=== PATIENT | male | born 1955 | race African-American/Black ===

== ENCOUNTER 2017-10-04 13:36 | Inpatient (IN) | payer OTHER ==
[2017-10-04 15:12] VITALS: BMI 27.0
[2017-10-04] MEDS ORDERED: hydrOXYzine PAMOATE 50 MG CAPSULE (FP) PO PRN (15:27)
[2017-10-04] MEDS ORDERED: MAGNESIUM HYDROX 2400MG/30ML ORAL SUSPENSION 30 ML CUP PO PRN (15:27)
[2017-10-04] MEDS ORDERED: MAGNESIUM CITRATE 300 ML BOTTLE PO PRN (15:27)
[2017-10-04] MEDS ORDERED: NICOTINE POLACRILEX 2 MG GUM BUC PRN (15:27)
[2017-10-04] MEDS ORDERED: MENTHOL/PHENOL 1 EACH UD MM PRN (15:27)
[2017-10-04] MEDS ORDERED: MAG HYDROX/AL HYDROX/SIMETH 30 ML UNIT-DOSE CUP PO PRN (15:27)
[2017-10-04] MEDS ORDERED: P-EPHED 60MG/TRIPROLIDI 2.5MG TABLET PO PRN (15:27)
[2017-10-04] MEDS ORDERED: LOPERAMIDE HCL 2 MG CAPSULE PO PRN (15:27)
[2017-10-04] MEDS ORDERED: guaiFENesin/D-METHORPHAN HB 10 ML UNIT-DOSE CUPS PO PRN (15:27)
--- NOTE | 2017-10-04 15:33 | HP ---
[facility] Re[facility] Assess/Revision - Admission History Admitted to Rehab from: [facility] Date of Admission to Rehab: 10/04/2017 - Vital signs Vital Signs: Vital Signs Period Temp Pulse Resp BP Sys/Ruiz Pulse Ox Last 24 Hr 98 F 98 19 101/73 - Findings Detox History & Physical reviewed: Yes Concur with findings: Yes Inpatient Rehab Admission - Initial Determination Are CD services needed?: Yes Free of communicable disease: Yes Not in need of hospitalization: Yes - Rehab Admission Criteria Poor recovery environment: Yes Patient is meeting Inpatient Rehab admission criteria:: Yes
[2017-10-04] MEDS: THIAMINE HCL 100 MG TABLET (FP) PO SCH (21:04)
[2017-10-04] MEDS: CYCLOBENZAPRINE HCL 10 MG TABLET (FP) PO SCH (21:04)
[2017-10-05] MEDS: CYCLOBENZAPRINE HCL 10 MG TABLET (FP) PO SCH ×3 (06:06→21:30)
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
[2017-10-05] MEDS: PRENATAL VITAMINS W/ FOLIC ACID TABLET (FP) PO SCH (10:00)
[2017-10-05] MEDS: NICOTINE 14 MG/24 HOURS TOPICAL PATCH TD SCH (10:00)
[2017-10-05] MEDS: THIAMINE HCL 100 MG TABLET (FP) PO SCH (21:30)
[2017-10-06] MEDS: CYCLOBENZAPRINE HCL 10 MG TABLET (FP) PO SCH ×3 (06:00→21:27)
[2017-10-06] MEDS: PRENATAL VITAMINS W/ FOLIC ACID TABLET (FP) PO SCH (09:57)
[2017-10-06] MEDS: NICOTINE 14 MG/24 HOURS TOPICAL PATCH TD SCH (09:57)
[2017-10-06] MEDS: THIAMINE HCL 100 MG TABLET (FP) PO SCH (21:26)
[2017-10-06] MEDS: SUVOREXANT 10 MG TABLET PO PRN (21:28)
[2017-10-07] MEDS: CYCLOBENZAPRINE HCL 10 MG TABLET (FP) PO SCH ×3 (06:13→22:07)
[2017-10-07] MEDS: PRENATAL VITAMINS W/ FOLIC ACID TABLET (FP) PO SCH (10:36)
[2017-10-07] MEDS: NICOTINE 14 MG/24 HOURS TOPICAL PATCH TD SCH (10:36)
[2017-10-07] MEDS: THIAMINE HCL 100 MG TABLET (FP) PO SCH (22:07)
[2017-10-07] MEDS: SUVOREXANT 10 MG TABLET PO PRN (22:07)
[2017-10-08] MEDS: CYCLOBENZAPRINE HCL 10 MG TABLET (FP) PO SCH ×3 (06:14→21:24)
[2017-10-08] MEDS: NICOTINE 14 MG/24 HOURS TOPICAL PATCH TD SCH (09:58)
[2017-10-08] MEDS: PRENATAL VITAMINS W/ FOLIC ACID TABLET (FP) PO SCH (09:58)
[2017-10-08] MEDS: THIAMINE HCL 100 MG TABLET (FP) PO SCH (21:24)
[2017-10-08] MEDS ORDERED: SUVOREXANT 10 MG TABLET PO PRN (22:00)
[2017-10-09] MEDS: CYCLOBENZAPRINE HCL 10 MG TABLET (FP) PO SCH ×3 (06:18→21:22)
[2017-10-09] MEDS: NICOTINE 14 MG/24 HOURS TOPICAL PATCH TD SCH (09:56)
[2017-10-09] MEDS: PRENATAL VITAMINS W/ FOLIC ACID TABLET (FP) PO SCH (09:56)
[2017-10-09] MEDS: THIAMINE HCL 100 MG TABLET (FP) PO SCH (21:22)
[2017-10-10] MEDS: IBUPROFEN 400 MG TABLET (FP) PO PRN (06:12)
[2017-10-10] MEDS: CYCLOBENZAPRINE HCL 10 MG TABLET (FP) PO SCH ×3 (06:13→21:34)
[2017-10-10] MEDS: NICOTINE 14 MG/24 HOURS TOPICAL PATCH TD SCH (09:46)
[2017-10-10] MEDS: PRENATAL VITAMINS W/ FOLIC ACID TABLET (FP) PO SCH (09:46)
[2017-10-10] MEDS: ACETAMINOPHEN 325 MG TABLET (FP) PO PRN ×2 (09:47→21:34)
[2017-10-10] MEDS: THIAMINE HCL 100 MG TABLET (FP) PO SCH (21:34)
[2017-10-11] MEDS: CYCLOBENZAPRINE HCL 10 MG TABLET (FP) PO SCH ×3 (06:11→21:32)
--- NOTE | 2017-10-11 09:20 | PN ---
Psychiatric Progress Note Vital Signs: Vital Signs Period Temp Pulse Resp BP Sys/Ruiz Pulse Ox Last 24 Hr 97.4 F 64 18-18 124/62 Date of Session: 10/11/17 Chief Complaint:: Insomnia HPI: Patient addressing Alcohol, Opoid and Cannabis dependence comorbid with Nicotine Dependence and Depressive Disorder ROS: Blindness left eye/Strabismic amblyopia left eye, PPD+, Psoriasis Current Medications: Active Medications Generic Name Dose Route Start Last Admin Trade Name Freq PRN Reason Stop Dose Admin Acetaminophen 650 mg 10/04/17 15:27 10/10/17 21:34 Tylenol - PO 650 mg Q4H PRN Administration FEVER OR PAIN Al Hydroxide/Mg Hydroxide 30 ml 10/04/17 15:27 Mylanta Oral Suspension - PO Q6H PRN DYSPEPSIA Cyclobenzaprine HCl 10 mg 10/04/17 22:00 10/11/17 06:11 Flexeril - PO 10 mg TID MEGHANA Administration Eucalyptus/Menthol/Phenol/Sorbitol 1 each 10/04/17 15:27 Cepastat Lozenge - MM Q4H PRN SORE THROAT Guaifenesin 10 ml 10/04/17 15:27 Robitussin Dm - PO Q6H PRN COUGH Hydroxyzine Pamoate 50 mg 10/04/17 15:27 Vistaril - PO Q4H PRN AGITATION Ibuprofen 400 mg 10/04/17 15:27 10/10/17 06:12 Motrin - PO 400 mg Q6H PRN Administration PAIN Loperamide HCl 4 mg 10/04/17 15:27 Imodium - PO Q6H PRN DIARRHEA Magnesium Hydroxide 30 ml 10/04/17 15:27 Milk Of Magnesia - PO DAILY PRN CONSTIPATION Nicotine 14 mg 10/05/17 10:00 10/10/17 09:46 Nicoderm Patch - TD 14 mg DAILY MEGHANA Administration Nicotine Polacrilex 2 mg 10/04/17 15:27 Nicorette Gum - BUC Q2H PRN NICOTINE REPLACEMENT RX Multivit/Folic Acid/Iron 1 tab 10/05/17 10:00 10/10/17 09:46 Vitamins (Sjr) - PO 1 tab DAILY MEGHANA Administration Pseudoephedrine/Triprolidine 1 combo 10/04/17 15:27 Actifed - PO TID PRN NASAL CONGESTION Thiamine HCl 100 mg 10/04/17 22:00 10/10/17 21:34 Vitamin B1 - PO 100 mg HS MEGHANA Administration Trazodone HCl 100 mg 10/11/17 22:00 Desyrel - PO HS [facility] Medication(s) Change(s): Start Trazadone 100 mg po HS for insomnia Current Side Effect: No Lab tests ordered: Yes Lab tests reviewed: Yes Provider note:: Patient reports experiencing difficulty to sleep. Told handbook writer that he has been sleeping poorly despite taking Belsomra 10 mg po HS prn for insomnia. Requests to be ordered Seroquel. Told by handbook writer that because of its side-effect profile, Seroquel should be used off label at last resort for insomnia. Hypnotic properties as well as adverse-effects of Trazadone discussed with patient and he agreed to try it Total face to face time:: 25 Mental Status Exam - Mental Status Exam Alert and Oriented to: Time, Place, Person Cognitive Function: Fair Patient Appearance: Well Groomed Mood: Hopeful, Euthymic Affect: Appropriate Patient Behavior: Cooperative Speech Pattern: Clear Voice Loudness: Normal Thought Process: Intact, Goal Oriented Thought Disorder: Not Present Hallucinations: Denies Suicidal Ideation: Denies Homicidal Ideation: Denies Insight/Judgement: Fair Sleep: Poorly Appetite: Good Muscle strength/Tone: Normal Gait/Station: Normal Psychiatric Treatment Plan - Problem List (1) Strabismic amblyopia of left eye Current Visit: No (2) Nicotine dependence Current Visit: No Qualifiers: Nicotine product type: cigarettes Substance use status: in withdrawal Qualified Code(s): F17.213 - Nicotine dependence, cigarettes, with withdrawal (3) Legally blind in left eye, as defined in [place] Current Visit: No (4) Psoriasis Current Visit: No Comment: to leg and buttock (5) PPD positive Current Visit: No (6) Alcohol dependence Current Visit: Yes (7) Opioid dependence Current Visit: Yes (8) Cannabis dependence Current Visit: Yes (9) Depressive disorder Current Visit: Yes (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 2) Monitor progress
[2017-10-11] MEDS: NICOTINE 14 MG/24 HOURS TOPICAL PATCH TD SCH (09:50)
[2017-10-11] MEDS: PRENATAL VITAMINS W/ FOLIC ACID TABLET (FP) PO SCH (09:50)
[2017-10-11] MEDS: TOLNAFTATE 1% CREAM 15 GM TUBE TP SCH ×2 (14:15→21:33)
[2017-10-11] MEDS: traZODone HCL 100 MG TABLET (FP) PO SCH (21:31)
[2017-10-11] MEDS: THIAMINE HCL 100 MG TABLET (FP) PO SCH (21:32)
[2017-10-12] MEDS: CYCLOBENZAPRINE HCL 10 MG TABLET (FP) PO SCH ×3 (06:40→21:18)
[2017-10-12] MEDS: NICOTINE 14 MG/24 HOURS TOPICAL PATCH TD SCH (09:49)
[2017-10-12] MEDS: PRENATAL VITAMINS W/ FOLIC ACID TABLET (FP) PO SCH (09:49)
[2017-10-12] MEDS: TOLNAFTATE 1% CREAM 15 GM TUBE TP SCH ×2 (10:28→21:19)
[2017-10-12] MEDS: IBUPROFEN 400 MG TABLET (FP) PO PRN (15:37)
[2017-10-12] MEDS: THIAMINE HCL 100 MG TABLET (FP) PO SCH (21:18)
[2017-10-12] MEDS: traZODone HCL 100 MG TABLET (FP) PO SCH (21:18)
[2017-10-13] MEDS: CYCLOBENZAPRINE HCL 10 MG TABLET (FP) PO SCH ×3 (06:25→21:20)
[2017-10-13] MEDS: PRENATAL VITAMINS W/ FOLIC ACID TABLET (FP) PO SCH (09:42)
[2017-10-13] MEDS: IBUPROFEN 400 MG TABLET (FP) PO PRN (09:42)
[2017-10-13] MEDS: TOLNAFTATE 1% CREAM 15 GM TUBE TP SCH ×2 (09:43→21:22)
[2017-10-13] MEDS: NICOTINE 14 MG/24 HOURS TOPICAL PATCH TD SCH (09:43)
[2017-10-13] MEDS: NAPROXEN 500 MG TABLET (FP) PO SCH ×2 (14:20→21:21)
[2017-10-13] MEDS: traZODone HCL 100 MG TABLET (FP) PO SCH (21:20)
[2017-10-13] MEDS: THIAMINE HCL 100 MG TABLET (FP) PO SCH (22:00)
[2017-10-14] MEDS: CYCLOBENZAPRINE HCL 10 MG TABLET (FP) PO SCH ×3 (06:38→21:17)
[2017-10-14] MEDS: PRENATAL VITAMINS W/ FOLIC ACID TABLET (FP) PO SCH (09:59)
[2017-10-14] MEDS: NAPROXEN 500 MG TABLET (FP) PO SCH ×2 (09:59→21:17)
[2017-10-14] MEDS: TOLNAFTATE 1% CREAM 15 GM TUBE TP SCH ×2 (10:00→21:17)
[2017-10-14] MEDS: NICOTINE 14 MG/24 HOURS TOPICAL PATCH TD SCH (10:00)
[2017-10-14] MEDS: ACETAMINOPHEN 325 MG TABLET (FP) PO PRN (14:22)
[2017-10-14] MEDS: traZODone HCL 100 MG TABLET (FP) PO SCH (21:17)
[2017-10-14] MEDS: THIAMINE HCL 100 MG TABLET (FP) PO SCH (21:17)
[2017-10-15] MEDS: CYCLOBENZAPRINE HCL 10 MG TABLET (FP) PO SCH ×3 (05:49→21:20)
[2017-10-15] MEDS: ACETAMINOPHEN 325 MG TABLET (FP) PO PRN (05:50)
[2017-10-15] MEDS: TOLNAFTATE 1% CREAM 15 GM TUBE TP SCH ×2 (09:42→21:21)
[2017-10-15] MEDS: NICOTINE 14 MG/24 HOURS TOPICAL PATCH TD SCH (09:42)
[2017-10-15] MEDS: PRENATAL VITAMINS W/ FOLIC ACID TABLET (FP) PO SCH (09:42)
[2017-10-15] MEDS: NAPROXEN 500 MG TABLET (FP) PO SCH ×2 (09:42→21:21)
[2017-10-15] MEDS: THIAMINE HCL 100 MG TABLET (FP) PO SCH (21:20)
[2017-10-15] MEDS: traZODone HCL 100 MG TABLET (FP) PO SCH (21:21)
[2017-10-16] MEDS: ACETAMINOPHEN 325 MG TABLET (FP) PO PRN (06:11)
[2017-10-16] MEDS: CYCLOBENZAPRINE HCL 10 MG TABLET (FP) PO SCH ×3 (06:41→21:15)
[2017-10-16] MEDS: NICOTINE 14 MG/24 HOURS TOPICAL PATCH TD SCH (09:31)
[2017-10-16] MEDS: TOLNAFTATE 1% CREAM 15 GM TUBE TP SCH ×2 (09:31→21:16)
[2017-10-16] MEDS: PRENATAL VITAMINS W/ FOLIC ACID TABLET (FP) PO SCH (09:31)
[2017-10-16] MEDS: NAPROXEN 500 MG TABLET (FP) PO SCH ×2 (09:31→21:15)
[2017-10-16] MEDS: THIAMINE HCL 100 MG TABLET (FP) PO SCH (21:15)
[2017-10-16] MEDS: traZODone HCL 100 MG TABLET (FP) PO SCH (21:16)
[2017-10-17] MEDS: CYCLOBENZAPRINE HCL 10 MG TABLET (FP) PO SCH ×3 (05:49→21:06)
[2017-10-17] MEDS: ACETAMINOPHEN 325 MG TABLET (FP) PO PRN (05:49)
[2017-10-17] MEDS: NAPROXEN 500 MG TABLET (FP) PO SCH ×2 (09:41→21:06)
[2017-10-17] MEDS: PRENATAL VITAMINS W/ FOLIC ACID TABLET (FP) PO SCH (09:41)
[2017-10-17] MEDS: NICOTINE 14 MG/24 HOURS TOPICAL PATCH TD SCH (09:41)
[2017-10-17] MEDS: TOLNAFTATE 1% CREAM 15 GM TUBE TP SCH ×2 (09:42→21:50)
[2017-10-17] MEDS: traZODone HCL 100 MG TABLET (FP) PO SCH (21:06)
[2017-10-17] MEDS: THIAMINE HCL 100 MG TABLET (FP) PO SCH (21:06)
[2017-10-18] MEDS: CYCLOBENZAPRINE HCL 10 MG TABLET (FP) PO SCH ×3 (06:06→21:06)
[2017-10-18] MEDS: ACETAMINOPHEN 325 MG TABLET (FP) PO PRN ×2 (06:06→22:44)
[2017-10-18] MEDS: PRENATAL VITAMINS W/ FOLIC ACID TABLET (FP) PO SCH (10:03)
[2017-10-18] MEDS: NICOTINE 14 MG/24 HOURS TOPICAL PATCH TD SCH (10:04)
[2017-10-18] MEDS: TOLNAFTATE 1% CREAM 15 GM TUBE TP SCH ×2 (10:04→22:05)
[2017-10-18] MEDS: NAPROXEN 500 MG TABLET (FP) PO SCH ×2 (10:04→21:06)
--- NOTE | 2017-10-18 13:36 | PN ---
Psychiatric Progress Note Vital Signs: Vital Signs Period Temp Pulse Resp BP Sys/Ruiz Pulse Ox Last 24 Hr 97.4 F 66 18-18 123/68 Date of Session: 10/18/17 Chief Complaint:: Medication management HPI: Patient addressing Alcohol, Opoid and Cannabis Dependence comorbid with Nicotine Dependence and Depressive Disorder ROS: Strabismic amblyopia with legal blidness left eye, PPD+, Psoriasis Current Medications: Active Medications Generic Name Dose Route Start Last Admin Trade Name Freq PRN Reason Stop Dose Admin Acetaminophen 650 mg 10/04/17 15:27 10/18/17 06:06 Tylenol - PO 650 mg Q4H PRN Administration FEVER OR PAIN Al Hydroxide/Mg Hydroxide 30 ml 10/04/17 15:27 Mylanta Oral Suspension - PO Q6H PRN DYSPEPSIA Cyclobenzaprine HCl 10 mg 10/04/17 22:00 10/18/17 06:06 Flexeril - PO 10 mg TID MEGHANA Administration Eucalyptus/Menthol/Phenol/Sorbitol 1 each 10/04/17 15:27 Cepastat Lozenge - MM Q4H PRN SORE THROAT Guaifenesin 10 ml 10/04/17 15:27 Robitussin Dm - PO Q6H PRN COUGH Hydroxyzine Pamoate 50 mg 10/04/17 15:27 Vistaril - PO Q4H PRN AGITATION Loperamide HCl 4 mg 10/04/17 15:27 Imodium - PO Q6H PRN DIARRHEA Magnesium Hydroxide 30 ml 10/04/17 15:27 Milk Of Magnesia - PO DAILY PRN CONSTIPATION Naltrexone HCl 50 mg 10/19/17 10:00 Revia - PO DAILY MEGHANA Naproxen 500 mg 10/13/17 13:47 10/18/17 10:04 Naprosyn - PO 500 mg BID MEGHANA Administration Nicotine 14 mg 10/05/17 10:00 10/18/17 10:04 Nicoderm Patch - TD 14 mg DAILY MEGHANA Administration Nicotine Polacrilex 2 mg 10/04/17 15:27 Nicorette Gum - BUC Q2H PRN NICOTINE REPLACEMENT RX Multivit/Folic Acid/Iron 1 tab 10/05/17 10:00 10/18/17 10:03 Vitamins (Sjr) - PO 1 tab DAILY MEGHANA Administration Pseudoephedrine/Triprolidine 1 combo 10/04/17 15:27 Actifed - PO TID PRN NASAL CONGESTION Thiamine HCl 100 mg 10/04/17 22:00 10/17/17 21:06 Vitamin B1 - PO 100 mg HS MEGHANA Administration Tolnaftate 1 applic 10/11/17 12:46 10/18/17 10:04 Tinactin 1% Cream - TP 1 applic BID MEGHANA Administration Trazodone HCl 100 mg 10/11/17 22:00 10/17/17 21:06 Desyrel - PO 100 mg HS MEGHANA Administration Medication(s) Change(s): Start Naltrexone 50 mg po daily Current Side Effect: No Lab tests ordered: Yes Lab tests reviewed: Yes (LFT"s done on 09/29/17:WNL) Provider note:: Patient requested medication to help with craving from alcohol and heroin. Naltrexone in both formulation was discussed with patient. He is not willing to take monthly injection but will take it orally. Benefits vs Risks discussed with patient and he was provided with reading materials. LFT's result reviewed and is normal. Total face to face time:: 25 Mental Status Exam - Mental Status Exam Alert and Oriented to: Time, Place, Person Cognitive Function: Fair Patient Appearance: Well Groomed Mood: Hopeful, Euthymic Affect: Appropriate Patient Behavior: Cooperative Speech Pattern: Clear Voice Loudness: Normal Thought Process: Intact, Goal Oriented Thought Disorder: Not Present Hallucinations: Denies Suicidal Ideation: Denies Homicidal Ideation: Denies Insight/Judgement: Fair Sleep: Fair Appetite: Good Muscle strength/Tone: Normal Gait/Station: Normal Psychiatric Treatment Plan - Problem List (1) Strabismic amblyopia of left eye Current Visit: No (2) Nicotine dependence Current Visit: No Qualifiers: Nicotine product type: cigarettes Substance use status: in withdrawal Qualified Code(s): F17.213 - Nicotine dependence, cigarettes, with withdrawal (3) Legally blind in left eye, as defined in [place] Current Visit: No (4) Psoriasis Current Visit: No Comment: to leg and buttock (5) PPD positive Current Visit: No (6) Alcohol dependence Current Visit: Yes (7) Opioid dependence Current Visit: Yes (8) Cannabis dependence Current Visit: Yes (9) Depressive disorder Current Visit: Yes (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 2) Monitor progress
[2017-10-18] MEDS: traZODone HCL 100 MG TABLET (FP) PO SCH (21:06)
[2017-10-18] MEDS: THIAMINE HCL 100 MG TABLET (FP) PO SCH (21:07)
[2017-10-19] MEDS: CYCLOBENZAPRINE HCL 10 MG TABLET (FP) PO SCH ×3 (06:14→21:32)
[2017-10-19] MEDS: ACETAMINOPHEN 325 MG TABLET (FP) PO PRN ×2 (06:14→14:14)
[2017-10-19] MEDS: NICOTINE 14 MG/24 HOURS TOPICAL PATCH TD SCH (09:37)
[2017-10-19] MEDS: NAPROXEN 500 MG TABLET (FP) PO SCH ×2 (09:37→21:32)
[2017-10-19] MEDS: PRENATAL VITAMINS W/ FOLIC ACID TABLET (FP) PO SCH (09:37)
[2017-10-19] MEDS: NALTREXONE HCL 50 MG TABLET PO SCH (09:37)
[2017-10-19] MEDS: TOLNAFTATE 1% CREAM 15 GM TUBE TP SCH ×2 (09:38→22:11)
[2017-10-19] MEDS: traZODone HCL 100 MG TABLET (FP) PO SCH (21:32)
[2017-10-19] MEDS: THIAMINE HCL 100 MG TABLET (FP) PO SCH (21:32)
[2017-10-20] MEDS: CYCLOBENZAPRINE HCL 10 MG TABLET (FP) PO SCH ×3 (06:17→21:29)
[2017-10-20] MEDS: PRENATAL VITAMINS W/ FOLIC ACID TABLET (FP) PO SCH (09:50)
[2017-10-20] MEDS: NAPROXEN 500 MG TABLET (FP) PO SCH ×2 (09:50→21:29)
[2017-10-20] MEDS: NICOTINE 14 MG/24 HOURS TOPICAL PATCH TD SCH (09:50)
[2017-10-20] MEDS: NALTREXONE HCL 50 MG TABLET PO SCH (09:50)
[2017-10-20] MEDS: ACETAMINOPHEN 325 MG TABLET (FP) PO PRN ×2 (09:51→21:29)
[2017-10-20] MEDS: TOLNAFTATE 1% CREAM 15 GM TUBE TP SCH ×2 (10:14→23:36)
--- NOTE | 2017-10-20 10:28 | PN ---
Psychiatric Progress Note Vital Signs: Vital Signs Period Temp Pulse Resp BP Sys/Ruiz Pulse Ox Last 24 Hr 98.7 F 68 18-18 124/69 Date of Session: 10/20/17 Chief Complaint:: "I've been feeling drowsy and could not sleep last night" HPI: Patient addressing Alcohol, Opoid and Cannabis Dependence comorbid with Nicotine Dependence and Depressive Disorder ROS: Strabismic amblyopia with legal blidness left eye, PPD+, Psoriasis Current Medications: Active Medications Generic Name Dose Route Start Last Admin Trade Name Freq PRN Reason Stop Dose Admin Acetaminophen 650 mg 10/04/17 15:27 10/20/17 09:51 Tylenol - PO 650 mg Q4H PRN Administration FEVER OR PAIN Al Hydroxide/Mg Hydroxide 30 ml 10/04/17 15:27 Mylanta Oral Suspension - PO Q6H PRN DYSPEPSIA Cyclobenzaprine HCl 10 mg 10/04/17 22:00 10/20/17 06:17 Flexeril - PO 10 mg TID MEGHANA Administration Eucalyptus/Menthol/Phenol/Sorbitol 1 each 10/04/17 15:27 Cepastat Lozenge - MM Q4H PRN SORE THROAT Guaifenesin 10 ml 10/04/17 15:27 Robitussin Dm - PO Q6H PRN COUGH Hydroxyzine Pamoate 50 mg 10/04/17 15:27 Vistaril - PO Q4H PRN AGITATION Loperamide HCl 4 mg 10/04/17 15:27 Imodium - PO Q6H PRN DIARRHEA Magnesium Hydroxide 30 ml 10/04/17 15:27 Milk Of Magnesia - PO DAILY PRN CONSTIPATION Naltrexone HCl 50 mg 10/19/17 10:00 10/20/17 09:50 Revia - PO Not Given DAILY MEGHANA Naproxen 500 mg 10/13/17 13:47 10/20/17 09:50 Naprosyn - PO 500 mg BID MEGHANA Administration Nicotine 14 mg 10/05/17 10:00 10/20/17 09:50 Nicoderm Patch - TD 14 mg DAILY MEGHANA Administration Nicotine Polacrilex 2 mg 10/04/17 15:27 Nicorette Gum - BUC Q2H PRN NICOTINE REPLACEMENT RX Multivit/Folic Acid/Iron 1 tab 10/05/17 10:00 10/20/17 09:50 Vitamins (Sjr) - PO 1 tab DAILY MEGHANA Administration Pseudoephedrine/Triprolidine 1 combo 10/04/17 15:27 Actifed - PO TID PRN NASAL CONGESTION Thiamine HCl 100 mg 10/04/17 22:00 10/19/17 21:32 Vitamin B1 - PO 100 mg HS MEGHANA Administration Tolnaftate 1 applic 10/11/17 12:46 10/20/17 10:14 Tinactin 1% Cream - TP Not Given BID MEGHANA Trazodone HCl 100 mg 10/11/17 22:00 10/19/17 21:32 Desyrel - PO 100 mg HS MEGHANA Administration Current Side Effect: No (drowsy, poorsleep) Lab tests ordered: Yes Lab tests reviewed: Yes Provider note:: Patient reports feeling drowsy since he started taking Naltrexone yesterday morning. He now reports that he could not sleep last night. He does not want to continue taking that medication Total face to face time:: 25 Mental Status Exam - Mental Status Exam Alert and Oriented to: Time, Place, Person Cognitive Function: Fair Patient Appearance: Well Groomed Mood: Hopeful, Euthymic Affect: Appropriate Patient Behavior: Cooperative Speech Pattern: Clear Voice Loudness: Normal Thought Process: Intact, Goal Oriented Thought Disorder: Not Present Hallucinations: Denies Suicidal Ideation: Denies Homicidal Ideation: Denies Insight/Judgement: Fair Sleep: Poorly Appetite: Good Muscle strength/Tone: Normal Gait/Station: Normal Psychiatric Treatment Plan - Problem List (1) Strabismic amblyopia of left eye Current Visit: No (2) Nicotine dependence Current Visit: No Qualifiers: Nicotine product type: cigarettes Substance use status: in withdrawal Qualified Code(s): F17.213 - Nicotine dependence, cigarettes, with withdrawal (3) Legally blind in left eye, as defined in [place] Current Visit: No (4) Psoriasis Current Visit: No Comment: to leg and buttock Initial treatment plan: 1) Discontinue Naltrexone. 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 2) Monitor progress
[2017-10-20] MEDS: traZODone HCL 100 MG TABLET (FP) PO SCH (21:29)
[2017-10-20] MEDS: THIAMINE HCL 100 MG TABLET (FP) PO SCH (21:29)
[2017-10-21] MEDS: ACETAMINOPHEN 325 MG TABLET (FP) PO PRN ×3 (06:17→21:22)
[2017-10-21] MEDS: CYCLOBENZAPRINE HCL 10 MG TABLET (FP) PO SCH ×3 (06:18→21:23)
[2017-10-21] MEDS: PRENATAL VITAMINS W/ FOLIC ACID TABLET (FP) PO SCH (09:35)
[2017-10-21] MEDS: NICOTINE 14 MG/24 HOURS TOPICAL PATCH TD SCH (09:35)
[2017-10-21] MEDS: NAPROXEN 500 MG TABLET (FP) PO SCH ×2 (09:35→21:24)
[2017-10-21] MEDS: TOLNAFTATE 1% CREAM 15 GM TUBE TP SCH ×2 (09:59→21:24)
[2017-10-21] MEDS: THIAMINE HCL 100 MG TABLET (FP) PO SCH (21:23)
[2017-10-21] MEDS: traZODone HCL 100 MG TABLET (FP) PO SCH (21:23)
[2017-10-22] MEDS: ACETAMINOPHEN 325 MG TABLET (FP) PO PRN (06:34)
[2017-10-22] MEDS: CYCLOBENZAPRINE HCL 10 MG TABLET (FP) PO SCH ×3 (06:35→21:05)
[2017-10-22] MEDS: NICOTINE 14 MG/24 HOURS TOPICAL PATCH TD SCH (09:45)
[2017-10-22] MEDS: PRENATAL VITAMINS W/ FOLIC ACID TABLET (FP) PO SCH (09:45)
[2017-10-22] MEDS: NAPROXEN 500 MG TABLET (FP) PO SCH ×2 (09:45→21:05)
[2017-10-22] MEDS: TOLNAFTATE 1% CREAM 15 GM TUBE TP SCH ×2 (10:27→21:05)
[2017-10-22] MEDS: THIAMINE HCL 100 MG TABLET (FP) PO SCH (21:05)
[2017-10-22] MEDS: traZODone HCL 100 MG TABLET (FP) PO SCH (21:05)
[2017-10-23] MEDS: CYCLOBENZAPRINE HCL 10 MG TABLET (FP) PO SCH ×3 (06:25→21:22)
[2017-10-23] MEDS: ACETAMINOPHEN 325 MG TABLET (FP) PO PRN (06:25)
[2017-10-23] MEDS: PRENATAL VITAMINS W/ FOLIC ACID TABLET (FP) PO SCH (10:27)
[2017-10-23] MEDS: TOLNAFTATE 1% CREAM 15 GM TUBE TP SCH ×2 (10:28→21:25)
[2017-10-23] MEDS: NICOTINE 14 MG/24 HOURS TOPICAL PATCH TD SCH (10:28)
[2017-10-23] MEDS: NAPROXEN 500 MG TABLET (FP) PO SCH ×2 (10:28→21:22)
[2017-10-23] MEDS: THIAMINE HCL 100 MG TABLET (FP) PO SCH (21:22)
[2017-10-23] MEDS: traZODone HCL 100 MG TABLET (FP) PO SCH (21:22)
[2017-10-24] MEDS: ACETAMINOPHEN 325 MG TABLET (FP) PO PRN ×2 (03:34→09:49)
[2017-10-24] MEDS: CYCLOBENZAPRINE HCL 10 MG TABLET (FP) PO SCH ×3 (06:22→21:21)
[2017-10-24] MEDS: PRENATAL VITAMINS W/ FOLIC ACID TABLET (FP) PO SCH (09:49)
[2017-10-24] MEDS: NICOTINE 14 MG/24 HOURS TOPICAL PATCH TD SCH (09:49)
[2017-10-24] MEDS: NAPROXEN 500 MG TABLET (FP) PO SCH ×2 (09:49→21:21)
[2017-10-24] MEDS: TOLNAFTATE 1% CREAM 15 GM TUBE TP SCH ×2 (09:50→21:21)
--- NOTE | 2017-10-24 13:34 | PN ---
Psychiatric Progress Note Vital Signs: Vital Signs Period Temp Pulse Resp BP Sys/Ruiz Pulse Ox Last 24 Hr 97.6 F 69 18-20 135/65 Current Medications: Active Medications Generic Name Dose Route Start Last Admin Trade Name Freq PRN Reason Stop Dose Admin Acetaminophen 650 mg 10/04/17 15:27 10/24/17 09:49 Tylenol - PO 650 mg Q4H PRN Administration FEVER OR PAIN Al Hydroxide/Mg Hydroxide 30 ml 10/04/17 15:27 Mylanta Oral Suspension - PO Q6H PRN DYSPEPSIA Cyclobenzaprine HCl 10 mg 10/04/17 22:00 10/24/17 06:22 Flexeril - PO 10 mg TID MEGHANA Administration Eucalyptus/Menthol/Phenol/Sorbitol 1 each 10/04/17 15:27 Cepastat Lozenge - MM Q4H PRN SORE THROAT Guaifenesin 10 ml 10/04/17 15:27 Robitussin Dm - PO Q6H PRN COUGH Hydroxyzine Pamoate 50 mg 10/04/17 15:27 10/24/17 06:23 Vistaril - PO 50 mg Q4H PRN Administration AGITATION Loperamide HCl 4 mg 10/04/17 15:27 Imodium - PO Q6H PRN DIARRHEA Magnesium Hydroxide 30 ml 10/04/17 15:27 Milk Of Magnesia - PO DAILY PRN CONSTIPATION Naproxen 500 mg 10/13/17 13:47 10/24/17 09:49 Naprosyn - PO 500 mg BID MEGHANA Administration Nicotine 14 mg 10/05/17 10:00 10/24/17 09:49 Nicoderm Patch - TD 14 mg DAILY MEGHANA Administration Nicotine Polacrilex 2 mg 10/04/17 15:27 Nicorette Gum - BUC Q2H PRN NICOTINE REPLACEMENT RX Multivit/Folic Acid/Iron 1 tab 10/05/17 10:00 10/24/17 09:49 Vitamins (Sjr) - PO 1 tab DAILY MEGHANA Administration Pseudoephedrine/Triprolidine 1 combo 10/04/17 15:27 Actifed - PO TID PRN NASAL CONGESTION Thiamine HCl 100 mg 10/04/17 22:00 10/23/17 21:22 Vitamin B1 - PO 100 mg HS MEGHANA Administration Tolnaftate 1 applic 10/11/17 12:46 10/24/17 09:50 Tinactin 1% Cream - TP 1 applic BID MEGHANA Administration Trazodone HCl 100 mg 10/11/17 22:00 10/23/17 21:22 Desyrel - PO 100 mg HS MEGHANA Administration Psychiatric Treatment Plan - Problem List (1) Strabismic amblyopia of left eye Current Visit: No (2) Nicotine dependence Current Visit: No Qualifiers: Nicotine product type: cigarettes Substance use status: in withdrawal Qualified Code(s): F17.213 - Nicotine dependence, cigarettes, with withdrawal (3) Legally blind in left eye, as defined in [place] Current Visit: No (4) Psoriasis Current Visit: No Comment: to leg and buttock (5) PPD positive Current Visit: No (6) Alcohol dependence Current Visit: Yes (7) Opioid dependence Current Visit: Yes (8) Cannabis dependence Current Visit: Yes (9) Depressive disorder Current Visit: Yes (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
[2017-10-24] MEDS: traZODone HCL 100 MG TABLET (FP) PO SCH (21:21)
[2017-10-24] MEDS: THIAMINE HCL 100 MG TABLET (FP) PO SCH (21:21)
[2017-10-25] MEDS: CYCLOBENZAPRINE HCL 10 MG TABLET (FP) PO SCH ×3 (06:40→21:42)
[2017-10-25] MEDS: ACETAMINOPHEN 325 MG TABLET (FP) PO PRN (06:41)
[2017-10-25] MEDS: NAPROXEN 500 MG TABLET (FP) PO SCH ×2 (09:42→21:42)
[2017-10-25] MEDS: PRENATAL VITAMINS W/ FOLIC ACID TABLET (FP) PO SCH (09:42)
[2017-10-25] MEDS: NICOTINE 14 MG/24 HOURS TOPICAL PATCH TD SCH (09:43)
[2017-10-25] MEDS: TOLNAFTATE 1% CREAM 15 GM TUBE TP SCH ×2 (10:09→21:43)
--- NOTE | 2017-10-25 16:09 | PN ---
Psychiatric Progress Note Vital Signs: Vital Signs Period Temp Pulse Resp BP Sys/Ruiz Pulse Ox Last 24 Hr 98.3 F 71 18-20 144/69 Date of Session: 10/25/17 Chief Complaint:: Discharge visit HPI: Case of a 62 y/o AA male admitted to [address] for rehabilitation treatment for alcohol dependence,opioid dependence,cannabis dependence co- morbid with nicotine dependence and depressive disorder. ROS: Unremarkable.Patient is alert,fully oriented,conversant and comfortable.No somatic complaints. Current Medications: Active Medications Generic Name Dose Route Start Last Admin Trade Name Freq PRN Reason Stop Dose Admin Acetaminophen 650 mg 10/04/17 15:27 10/25/17 06:41 Tylenol - PO 650 mg Q4H PRN Administration FEVER OR PAIN Al Hydroxide/Mg Hydroxide 30 ml 10/04/17 15:27 Mylanta Oral Suspension - PO Q6H PRN DYSPEPSIA Cyclobenzaprine HCl 10 mg 10/04/17 22:00 10/25/17 14:34 Flexeril - PO 10 mg TID MEGHANA Administration Eucalyptus/Menthol/Phenol/Sorbitol 1 each 10/04/17 15:27 Cepastat Lozenge - MM Q4H PRN SORE THROAT Guaifenesin 10 ml 10/04/17 15:27 Robitussin Dm - PO Q6H PRN COUGH Hydroxyzine Pamoate 50 mg 10/04/17 15:27 10/24/17 06:23 Vistaril - PO 50 mg Q4H PRN Administration AGITATION Loperamide HCl 4 mg 10/04/17 15:27 Imodium - PO Q6H PRN DIARRHEA Magnesium Hydroxide 30 ml 10/04/17 15:27 Milk Of Magnesia - PO DAILY PRN CONSTIPATION Naproxen 500 mg 10/13/17 13:47 10/25/17 09:42 Naprosyn - PO 500 mg BID MEGHANA Administration Nicotine 14 mg 10/05/17 10:00 10/25/17 09:43 Nicoderm Patch - TD 14 mg DAILY MEGHANA Administration Nicotine Polacrilex 2 mg 10/04/17 15:27 Nicorette Gum - BUC Q2H PRN NICOTINE REPLACEMENT RX Multivit/Folic Acid/Iron 1 tab 10/05/17 10:00 10/25/17 09:42 Vitamins (Sjr) - PO 1 tab DAILY MEGHANA Administration Pseudoephedrine/Triprolidine 1 combo 10/04/17 15:27 Actifed - PO TID PRN NASAL CONGESTION Thiamine HCl 100 mg 10/04/17 22:00 10/24/17 21:21 Vitamin B1 - PO 100 mg HS MEGHANA Administration Tolnaftate 1 applic 10/11/17 12:46 10/25/17 10:09 Tinactin 1% Cream - TP Not Given BID MEGHANA Trazodone HCl 100 mg 10/11/17 22:00 10/24/17 21:21 Desyrel - PO 100 mg HS MEGHANA Administration Medication(s) Change(s): Prescription for trazodone 100 mg/hs is already sent, electronically,to [facility] # [id number],by Dr Baum.Patient,in this interview,is made aware of the potential for priapism.He endorses good response and tolerability to the medication.No report of adverse effects.Mr Jeffries indicates his intention to maintain adherence to trazodone (insomnia). Current Side Effect: No Lab tests ordered: No Lab tests reviewed: Yes Provider note:: Patient will complete this program tomorrow.He has addressed his identified issues and met his treatment goals.He is now transitioning to outpatient care at [facility] in [facility].Medical issues were recognized and addressed.Medically cleared.Mr Jeffries indicates that his hospitalization at [facility] brought him a deeper insight into the dangers of addictions and increased his self-confidence for the challenges that await him in the community.Patient declares that he will invest his energies in applying the principles taught at [facility] for relapse prevention and maintenance of wellness.Hospital course is uneventful.Medications were well tolerated.Patient admits to being at his baseline level of functioning.Stable mental status.Mr Jeffries is ready for discharge,as scheduled,on 10/26/17. Total face to face time:: 35 Mental Status Exam - Mental Status Exam Alert and Oriented to: Time, Place, Person Cognitive Function: Good Patient Appearance: Well Groomed (strabismus in left eye) Mood: Euthymic Affect: Appropriate, Normal Range Patient Behavior: Appropriate, Cooperative Speech Pattern: Clear, Appropriate Voice Loudness: Normal Thought Process: Intact, Goal Oriented Thought Disorder: Not Present Hallucinations: Denies Suicidal Ideation: Denies Homicidal Ideation: Denies Insight/Judgement: Good Sleep: Well Appetite: Good Muscle strength/Tone: Normal Gait/Station: Normal Psychiatric Treatment Plan - Problem List (1) Alcohol dependence Current Visit: Yes (2) Cannabis dependence Current Visit: Yes (3) Opioid dependence Current Visit: Yes (4) Nicotine dependence Current Visit: Yes Qualifiers: Nicotine product type: cigarettes Substance use status: in withdrawal Qualified Code(s): F17.213 - Nicotine dependence, cigarettes, with withdrawal (5) Depressive disorder Current Visit: Yes (6) Insomnia Current Visit: Yes (7) Strabismic amblyopia of left eye Current Visit: Yes (8) Use of cane as ambulatory aid Current Visit: No
[2017-10-25] MEDS: THIAMINE HCL 100 MG TABLET (FP) PO SCH (21:42)
[2017-10-25] MEDS: traZODone HCL 100 MG TABLET (FP) PO SCH (21:42)
[2017-10-26] MEDS: CYCLOBENZAPRINE HCL 10 MG TABLET (FP) PO SCH (06:22)
[2017-10-26] MEDS: ACETAMINOPHEN 325 MG TABLET (FP) PO PRN (06:23)
[2017-10-26 06:42] VITALS: BP 136/72; PULSE 89; TEMP 97.3
[2017-10-26] MEDS: NAPROXEN 500 MG TABLET (FP) PO SCH (09:36)
[2017-10-26] MEDS: PRENATAL VITAMINS W/ FOLIC ACID TABLET (FP) PO SCH (09:37)
[2017-10-26] MEDS: NICOTINE 14 MG/24 HOURS TOPICAL PATCH TD SCH (09:37)
[2017-10-26] MEDS: TOLNAFTATE 1% CREAM 15 GM TUBE TP SCH (09:37)
== END 2017-10-26 09:50 | disposition home or self-care (01) | DRG 772 ==
LOC: YASAS 13:36 → Y3W 13:37
PROVIDERS: ADMIT Psychiatry & Neurology Psychiatry; ATTEND Psychiatry & Neurology Psychiatry
PROC: HZ42ZZZ Group Counseling for Substance Abuse Treatment, Cognitive-Behavioral (ICD-10-PCS; principal; 2017-10-04)
DX: F11.20 Opioid dependence, uncomplicated (principal); F10.20 Alcohol dependence, uncomplicated; F12.20 Cannabis dependence, uncomplicated; F17.213 Nicotine dependence, cigarettes, with withdrawal; F39 Unspecified mood [affective] disorder; H54.40 Blindness, one eye, unspecified eye; H50.89 Other specified strabismus; L40.9 Psoriasis, unspecified; R76.11 Nonspecific reaction to tuberculin skin test without active tuberculosis; Z99.89 Dependence on other enabling machines and devices

== ENCOUNTER 2017-12-01 18:28 | Inpatient (IN) | payer OTHER ==
[2017-12-01 19:32] VITALS: BMI 26.6
--- NOTE | 2017-12-01 20:43 | HP ---
COWS - Scale Resting Pulse: 0= [place] 80 or Below Sweatin= Chills/Flushing Restless Observation: 1= Difficult to Sit Still Pupil Size: 1= Pupils >than Normal Bone or Joint Aches: 2= Severe Diffuse Aches Runny Nose/ Eye Tearin= Runny Nose/Eyes GI Upset > 30mins: 2= Nausea/Diarrhea Tremor Observation: 2= Slight Tremor Visible Yawning Observation: 1= 1-2x During Session Anxiety or Irritability: 2=Irritable/Anxious Goose Flesh Skin: 0=Smooth Skin COWS Score: 14 Admission [facility] Chief Complaint: withdrawal sx Allergies/Adverse Reactions: Allergies Allergy/AdvReac Type Severity Reaction Status Date / Time No Known Allergies Allergy Verified 09/29/17 13:11 History of Present Illness: 62 years old male with long history of heroin nicotine depencence has positive ppd ambulate with cane weight loss and depression is admitted to detox Exam Limitations: No Limitations - Ebola screening Have you traveled outside of the country in the last 21 days: No Have you had contact with anyone from an Ebola affected area: No Have you been sick,other than usual withdrawal symptoms: No Do you have a fever: No - Review of Systems Constitutional: Loss of Appetite, Changes in sleep, Unintentional Wgt. Loss, Unexplained wgt Loss EENT: reports: Blurred Vision (left eye), Dental Problems (multiple teeth missing) Respiratory: reports: SOB with Exertion Cardiac: reports: No Symptoms Reported GI: reports: Diarrhea, Nausea, Poor Appetite, Poor Fluid Intake, Abdominal cramping : reports: No Symptoms Reported Musculoskeletal: reports: Back Pain, Joint Pain, Muscle Pain, Neck Pain Integumentary: reports: Change in Color (sacrum) Neuro: reports: Tremors Endocrine: reports: No Symptoms Reported Hematology: reports: No Symptoms Reported Psychiatric: reports: Judgement Intact, Orientated x3, Depressed Other Systems: Reviewed and Negative Patient History - Patient Medical History Hx Anemia: No Hx Asthma: No Hx Chronic Obstructive Pulmonary Disease (COPD): No Hx Cancer: No Hx Cardiac Disorders: No Hx Congestive Heart Failure: No Hx Hypertension: No Hx Hypercholesterolemia: No Hx Pacemaker: No HX Cerebrovascular Accident: No Hx Seizures: No Hx Dementia: No Hx Diabetes: No Hx Gastrointestinal Disorders: No Hx Liver Disease: No Hx Genitourinary Disorders: No Hx Sexually Transmitted Disorders: No Hx Renal Disease (ESRD): No Hx Thyroid Disease: No Hx Human Immunodeficiency Virus (HIV): No (negative) Hx Hepatitis C: No Hx Depression: Yes Hx Suicide Attempt: No Hx Bipolar Disorder: No Hx Schizophrenia: No - Patient Surgical History Past Surgical History: Yes Hx Neurologic Surgery: No Hx Cataract Extraction: No Hx Cardiac Surgery: No Hx Lung Surgery: No Hx Breast Surgery: No Hx Breast Biopsy: No Hx Abdominal Surgery: No Hx Appendectomy: No Hx Cholecystectomy: No Hx Genitourinary Surgery: No Hx Orthopedic Surgery: No Other Surgical History: L eye surgery at age 5 yrs old. Anesthesia Reaction: No - PPD History Previous Implant?: Yes Documented Results: Positive w/proof Implanted On Prior R Admission?: No PPD to be Administered?: No - Smoking Cessation Smoking history: Current every day smoker Have you smoked in the past 12 months: Yes Aproximately how many cigarettes per day: 10 Cigars Per Day: 0 Hx Chewing Tobacco Use: No Initiated information on smoking cessation: Yes 'Breaking Loose' booklet given: 12/01/17 - Substance & Tx. History Hx Alcohol Use: No Hx Substance Use: Yes Substance Use Type: Cocaine, Marijuana, Opiates Hx Substance Use Treatment: Yes [facility] - Substances Abused Alcohol Route: Oral Frequency: 1-2 times per week Amount used: 3 cans24 oz Age of first use: 12 Date of Last Use: 12/01/17 Heroin Route: Inhalation Frequency: Daily Amount used: 10bags daily Age of first use: 24 Date of Last Use: 12/01/17 Marijuana/Hashish Route: Smoking Frequency: Daily Amount used: $20 Age of first use: 12 Date of Last Use: 11/30/17 Family Disease History - Family Disease History Family Disease History: Heart Disease: Mother (HTN/), Other: Father ( ), Brother (DRUG,ALCOHOL,CT,HEMODIALYSIS) Admission Physical Exam BHS - Vital Signs Vital Signs: Vital Signs - 24 hr 12/01/17 19:29 Temperature 97.7 F Pulse Rate 61 Respiratory 18 Rate Blood Pressure 138/78 - Physical General Appearance: Yes: Appropriately Dressed, Mild Distress, Tremorous, Irritable, Sweating, Anxious HEENTM: Yes: Hearing grossly Normal, Normal ENT Inspection, Normocephalic, Normal Voice Respiratory: Yes: Chest Non-Tender, Lungs Clear, Normal Breath Sounds, No Respiratory Distress, No Accessory Muscle Use Neck: Yes: Supple, Trachea in good position Breast: Yes: Breasts Symetrical Cardiology: Yes: Regular Rhythm, Regular Rate, S1, S2 Abdominal: Yes: Non Tender, Soft, Increased Bowel Sounds Genitourinary: Yes: Within Normal Limits Back: Yes: Normal Inspection Musculoskeletal: Yes: full range of Motion (free of gravity), Gait Steady ( right hip arthritis cane), Back pain, Muscle Pain Extremities: Yes: Normal Inspection, Non-Tender, Tremors Neurological: Yes: Fully Oriented, Alert, Motor Strength 5/5, Normal Response, Depressed Affect Integumentary: Yes: Warm, Erythema (sacrum) Lymphatic: Yes: Within Normal Limits - Diagnostic (1) Weight loss Current Visit: Yes Status: Acute (2) Depression (emotion) Current Visit: Yes Status: Suspected Qualifiers: Depression Type: dysthymia Qualified Code(s): F34.1 - Dysthymic disorder (3) Nicotine dependence Current Visit: Yes Status: Acute Qualifiers: Nicotine product type: cigarettes Substance use status: in withdrawal Qualified Code(s): F17.213 - Nicotine dependence, cigarettes, with withdrawal (4) PPD positive Current Visit: Yes Status: Resolved (5) Use of cane as ambulatory aid Current Visit: Yes Status: Chronic Comment: right hip Cleared for Admission [facility] - Detox or Rehab [facility] Level of Care: Medically Managed Detox Regimen/Protocol: Methadone [facility] Breath Alcohol Content Breath Alcohol Content: 0 Urine Drug Screen - Results Drug Screen Negative: No Urine Drug Screen Results: THC-Marijuana, FELTON-Cocaine, OPI-Opiates
[2017-12-01] MEDS ORDERED: ACETAMINOPHEN 325 MG TABLET (FP) PO PRN (20:48)
[2017-12-01] MEDS ORDERED: P-EPHED 60MG/TRIPROLIDI 2.5MG TABLET PO PRN (20:48)
[2017-12-01] MEDS ORDERED: guaiFENesin/D-METHORPHAN HB 10 ML UNIT-DOSE CUPS PO PRN (20:48)
[2017-12-01] MEDS ORDERED: LOPERAMIDE HCL 2 MG CAPSULE PO PRN (20:48)
[2017-12-01] MEDS ORDERED: MAGNESIUM CITRATE 300 ML BOTTLE PO PRN (20:48)
[2017-12-01] MEDS ORDERED: MAGNESIUM HYDROX 2400MG/30ML ORAL SUSPENSION 30 ML CUP PO PRN (20:48)
[2017-12-01] MEDS ORDERED: IBUPROFEN 400 MG TABLET (FP) PO PRN (20:48)
[2017-12-01] MEDS ORDERED: METHADONE HCL 10 MG TABLET (FOR DETOX USE ONLY) PO ONE ×2 (20:48→23:00)
[2017-12-01] MEDS ORDERED: MAG HYDROX/AL HYDROX/SIMETH 30 ML UNIT-DOSE CUP PO PRN (20:48)
[2017-12-01] MEDS ORDERED: MENTHOL/PHENOL 1 EACH UD MM PRN (20:48)
[2017-12-01] MEDS ORDERED: NICOTINE POLACRILEX 2 MG GUM BUC PRN (20:49)
[2017-12-01] MEDS: diazePAM 5 MG TABLET PO PRN (21:22)
[2017-12-01] MEDS: THIAMINE HCL 100 MG TABLET (FP) PO SCH (21:22)
[2017-12-01] MEDS: MINERAL OIL/PETROLAT/WATER TOPICAL CREAM 113 GM JAR TP SCH (21:23)
[2017-12-01 23:49] LABS: URINE APPEARANCE SLCLOUDY; URINE BILIRUBIN NEGATIVE (NEGATIVE); URINE BLOOD NEGATIVE (NEGATIVE); URINE COLOR YELLOW; URINE GLUCOSE (UA) NEGATIVE (NEGATIVE); URINE KETONE NEGATIVE (NEGATIVE); URINE LEUK ESTERASE NEGATIVE (NEGATIVE); URINE NITRITE NEGATIVE (NEGATIVE); URINE PROTEIN NEGATIVE (NEGATIVE); URINE UROBILINOGEN NEGATIVE mg/dL (0.2-1.0)
[2017-12-02 09:47] LABS: ALBUMIN 3.2 g/dl (3.4-5.0); ANION GAP 5 (8-16); BLOOD UREA NITROGEN 7 mg/dL (7-18); CHLORIDE 105 mmol/L (98-107); CO2 30 mmol/L (21-32); GLUCOSE,RANDOM 139 mg/dL (74-106); POTASSIUM 4.1 mmol/L (3.5-5.1); SGOT/AST 15 U/L (15-37); SGPT/ALT 19 U/L (12-78); SODIUM 140 mmol/L (136-145)
[2017-12-02 09:48] LABS: ALK PHOS 98 U/L (45-117); BILIRUBIN,TOTAL 0.5 mg/dL (0.2-1.0); CALCIUM 8.6 mg/dL (8.5-10.1); TOT PROT 6.9 g/dl (6.4-8.2)
[2017-12-02] MEDS ORDERED: METHADONE HCL 10 MG TABLET (FOR DETOX USE ONLY) PO ONE (10:00)
[2017-12-02 10:23] LABS: HEMATOCRIT 40.4 % (35.4-49); HEMOGLOBIN 12.6 GM/dL (11.7-16.9); MCH 25.6 pg (25.7-33.7); MCHC 31.1 g/dl (32.0-35.9); MEAN CELL VOLUME 82.4 fl (80-96); MEAN PLT VOLUME 9.2 fl (7.5-11.1); PLATELET COUNT 296 K/MM3 (134-434); RDW 15.5 % (11.9-15.9); WHITE BLOOD COUNT 7.3 K/mm3 (4.0-10.0)
[2017-12-02] MEDS: NICOTINE 14 MG/24 HOURS TOPICAL PATCH TD SCH (10:28)
[2017-12-02] MEDS: PRENATAL VITAMINS W/ FOLIC ACID TABLET (FP) PO SCH (10:28)
--- NOTE | 2017-12-02 10:33 | CONSULT ---
[facility] Psychiatric Consult - Data Date of interview: 12/02/17 Admission source: [facility] Identifying data: Pt. is a 62 year old male, single, father of two, unemployed, and currently living in a long term. This is one of multiple admissions for patient. Pt. admitted to for heroin, alcohol, and marijuana dependence. Substance Abuse History: Following information confirmed with Mr. Jeffries: - Smoking Cessation. Smoking history: Current every day smoker. Have you smoked in the past 12 months: Yes. Aproximately how many cigarettes per day: 10. Cigars Per Day: 0. Hx Chewing Tobacco Use: No. Initiated information on smoking cessation: Yes. 'Breaking Loose' booklet given: 12/01/17. - Substance & Tx. History. Hx Alcohol Use: No. Hx Substance Use: Yes. Substance Use Type : Cocaine, Marijuana, Opiates. Hx Substance Use Treatment: Yes (09/2017 [facility]). - Substances Abused. Alcohol. Route: Oral. Frequency: 1-2 times per week. Amount used: 3 cans24 oz. Age of first use: 12. Date of Last Use: 12/01. Heroin. Route: Inhalation. Frequency: Daily. Amount used: 10bags daily. Age of first use: 24. Date of Last Use: 12/01/17. Marijuana/ Hashish. Route: Smoking. Frequency: Daily. Amount used: $20. Age of first use: 12. Date of Last Use: 11/30/17 Medical History: left eye surgery at age 5. Psychiatric History: Pt. reports one psychiatric hospitalization at [facility] in 2014 for depression after endorsing suicidal ideation. Pt. denies h/o suicide attempt and does not see an out patient psychiatrist. Pt. admitted to rehab at [facility] in September of 2017 and was prescribed trazodone 100mg qhs. Pt. requesting trazodone 100mg for insomina. Physical/Sexual Abuse/Trauma History: Denies. Mental Status Exam - Mental Status Exam Alert and Oriented to: Time, Place, Person Cognitive Function: Good Patient Appearance: Well Groomed Mood: Euthymic Affect: Mood Congruent Patient Behavior: Appropriate, Cooperative Speech Pattern: Clear Voice Loudness: Normal Thought Process: Goal Oriented Hallucinations: Denies Suicidal Ideation: Denies Homicidal Ideation: Denies Insight/Judgement: Poor Sleep: Poorly Appetite: Fair Muscle strength/Tone: Normal Gait/Station: Other (Walks with a cane.) Psychiatric Findings - Problem List ([place] 1, 2,3) (1) Opioid dependence with withdrawal Current Visit: Yes Status: Acute (2) Alcohol dependence with uncomplicated withdrawal Current Visit: Yes Status: Acute (3) Alcohol dependence Current Visit: Yes Status: Acute (4) Opioid dependence Current Visit: Yes Status: Acute (5) Insomnia Current Visit: Yes Status: Acute (6) Cannabis dependence Current Visit: Yes Status: Chronic (7) Nicotine dependence Current Visit: Yes Status: Chronic Qualifiers: Nicotine product type: cigarettes Substance use status: in withdrawal Qualified Code(s): F17.213 - Nicotine dependence, cigarettes, with withdrawal (8) MDD (major depressive disorder) Current Visit: Yes Status: Chronic - Initial Treatment Plan Initial Treatment Plan: Psychoeducation provided. Detoxification in progress. Trazodone 100mg qhs ordered. Pt. reports favorable effect from previously taking trazodone. Benefits and side effects (priapsm) discussed. Verbal consent given. Will continue to monitor.
--- NOTE | 2017-12-02 10:39 | PN ---
BHS COWS - Scale Resting Pulse: 0= [place] 80 or Below Sweatin= Chills/Flushing Restless Observation: 3= Extraneous Movement Pupil Size: 0= Normal to Room Light Bone or Joint Aches: 4=Acute Joint/Muscle Pain Runny Nose/ Eye Tearin= Nasal Congestion GI Upset > 30mins: 1= Stomach Cramp Tremor Observation of Outstretched Hands: 1= Tremor [place], Not Seen Yawning Observation: 1= 1-2x During Session Anxiety or Irritability: 2=Irritable/Anxious Goose Flesh Skin: 0=Smooth Skin COWS Score: 14 S Progress Note (SOAP) Subjective: ANXIETY,SWEATS,TREMORS,MUSCLE AND JOINT PAINS. Objective: 12/02/17 10:39 Vital Signs Temperature 98.8 F 12/02/17 08:52 Pulse Rate 79 12/02/17 08:52 Respiratory Rate 18 12/02/17 08:52 Blood Pressure 126/77 12/02/17 08:52 O2 Sat by Pulse Oximetry (%) Laboratory Last Values WBC 7.3 K/mm3 (4.0-10.0) 12/02/17 07:00 RBC 4.90 M/mm3 (4.00-5.60) 12/02/17 07:00 Hgb 12.6 GM/dL (11.7-16.9) 12/02/17 07:00 Hct 40.4 % (35.4-49) 12/02/17 07:00 MCV 82.4 fl (80-96) 12/02/17 07:00 MCH 25.6 pg (25.7-33.7) L 12/02/17 07:00 MCHC 31.1 g/dl (32.0-35.9) L 12/02/17 07:00 RDW 15.5 % (11.9-15.9) 12/02/17 07:00 Plt Count 296 K/MM3 (134-434) 12/02/17 07:00 MPV 9.2 fl (7.5-11.1) 12/02/17 07:00 Sodium 140 mmol/L (136-145) 12/02/17 07:00 Potassium 4.1 mmol/L (3.5-5.1) 12/02/17 07:00 Chloride 105 mmol/L (98-107) 12/02/17 07:00 Carbon Dioxide 30 mmol/L (21-32) 12/02/17 07:00 Anion Gap 5 (8-16) L 12/02/17 07:00 BUN 7 mg/dL (7-18) 12/02/17 07:00 Creatinine 1.0 mg/dL (0.7-1.3) D 12/02/17 07:00 Creat Clearance w eGFR > 60 (>60) 12/02/17 07:00 Random Glucose 139 mg/dL (74-106) H D 12/02/17 07:00 Calcium 8.6 mg/dL (8.5-10.1) 12/02/17 07:00 Total Bilirubin 0.5 mg/dL (0.2-1.0) D 12/02/17 07:00 AST 15 U/L (15-37) D 12/02/17 07:00 ALT 19 U/L (12-78) 12/02/17 07:00 Alkaline Phosphatase 98 U/L (45-117) 12/02/17 07:00 Total Protein 6.9 g/dl (6.4-8.2) 12/02/17 07:00 Albumin 3.2 g/dl (3.4-5.0) L 12/02/17 07:00 Urine Color Yellow 12/01/17 Unknown Urine Appearance Slcloudy 12/01/17 Unknown Urine pH 6.0 (5.0-8.0) 12/01/17 Unknown Ur Specific [place] 1.018 (1.001-1.035) 12/01/17 Unknown Urine Protein Negative (NEGATIVE) 12/01/17 Unknown Urine Glucose (UA) Negative (NEGATIVE) 12/01/17 Unknown Urine Ketones Negative (NEGATIVE) 12/01/17 Unknown Urine Blood Negative (NEGATIVE) 12/01/17 Unknown Urine Nitrite Negative (NEGATIVE) 12/01/17 Unknown Urine Bilirubin Negative (NEGATIVE) 12/01/17 Unknown Urine Urobilinogen Negative mg/dL (0.2-1.0) 12/01/17 Unknown Assessment: 12/02/17 10:39 WITHDRAWAL SX Plan: CONTINUE DETOX
--- NOTE | 2017-12-02 12:32 | EKG ---
Test Reason : Blood Pressure : / mmHG Vent. Rate : 074 BPM Atrial Rate : 074 BPM P-R Int : 138 ms QRS Dur : 078 ms QT Int : 432 ms P-R-T Axes : 086 079 070 degrees QTc Int : 479 ms POOR DATA QUALITY, INTERPRETATION MAY BE ADVERSELY AFFECTED NORMAL SINUS RHYTHM WITH SINUS ARRHYTHMIA RIGHT ATRIAL ENLARGEMENT SEPTAL INFARCT , AGE UNDETERMINED ABNORMAL ECG WHEN COMPARED WITH ECG OF 29-SEP-2017 15:13, SEPTAL INFARCT IS NOW PRESENT T WAVE INVERSION NOW EVIDENT IN ANTERIOR LEADS QT HAS LENGTHENED Confirmed by CLAIRE GRAF, JONNATHAN ([id number]) on 12/02/2017 12:32:02 PM Referred By: Confirmed By:JONNATHAN RANGEL MD
[2017-12-02] MEDS: CYCLOBENZAPRINE HCL 10 MG TABLET (FP) PO SCH ×2 (14:35→22:12)
[2017-12-02] MEDS: MINERAL OIL/PETROLAT/WATER TOPICAL CREAM 113 GM JAR TP SCH (22:12)
[2017-12-02] MEDS: traZODone HCL 100 MG TABLET (FP) PO SCH (22:12)
[2017-12-02] MEDS: THIAMINE HCL 100 MG TABLET (FP) PO SCH (22:12)
[2017-12-03] MEDS: CYCLOBENZAPRINE HCL 10 MG TABLET (FP) PO SCH ×3 (05:14→22:23)
[2017-12-03] MEDS: NICOTINE 14 MG/24 HOURS TOPICAL PATCH TD SCH (09:38)
[2017-12-03] MEDS: PRENATAL VITAMINS W/ FOLIC ACID TABLET (FP) PO SCH (09:38)
[2017-12-03] MEDS ORDERED: METHADONE HCL 5 MG TABLET (FOR DETOX USE ONLY) PO ONE (10:00)
--- NOTE | 2017-12-03 12:04 | PN ---
BHS COWS - Scale Resting Pulse: 0= [place] 80 or Below Sweatin= Chills/Flushing Restless Observation: 3= Extraneous Movement Pupil Size: 2= Moderately Dilated Bone or Joint Aches: 4=Acute Joint/Muscle Pain Runny Nose/ Eye Tearin= Nasal Congestion GI Upset > 30mins: 1= Stomach Cramp Tremor Observation of Outstretched Hands: 2= Slight Tremor Visible Yawning Observation: 2= >3x During Session Anxiety or Irritability: 2=Irritable/Anxious Goose Flesh Skin: 0=Smooth Skin COWS Score: 18 BHS Progress Note (SOAP) Subjective: ANXIETY,SWEATS. C/O ABRUPT SOB WHILE IN THE SHOWER BUT STOPPED NOW WHILE IN THE ROOM. DENIES PREVIOUS EPISODES. Objective: 12/03/17 12:01 Vital Signs Temperature 98.2 F 12/03/17 09:26 Pulse Rate 72 12/03/17 09:26 Respiratory Rate 18 12/03/17 09:26 Blood Pressure 129/72 12/03/17 09:26 O2 Sat by Pulse Oximetry (%) Laboratory Last Values WBC 7.3 K/mm3 (4.0-10.0) 12/02/17 07:00 RBC 4.90 M/mm3 (4.00-5.60) 12/02/17 07:00 Hgb 12.6 GM/dL (11.7-16.9) 12/02/17 07:00 Hct 40.4 % (35.4-49) 12/02/17 07:00 MCV 82.4 fl (80-96) 12/02/17 07:00 MCH 25.6 pg (25.7-33.7) L 12/02/17 07:00 MCHC 31.1 g/dl (32.0-35.9) L 12/02/17 07:00 RDW 15.5 % (11.9-15.9) 12/02/17 07:00 Plt Count 296 K/MM3 (134-434) 12/02/17 07:00 MPV 9.2 fl (7.5-11.1) 12/02/17 07:00 Sodium 140 mmol/L (136-145) 12/02/17 07:00 Potassium 4.1 mmol/L (3.5-5.1) 12/02/17 07:00 Chloride 105 mmol/L (98-107) 12/02/17 07:00 Carbon Dioxide 30 mmol/L (21-32) 12/02/17 07:00 Anion Gap 5 (8-16) L 12/02/17 07:00 BUN 7 mg/dL (7-18) 12/02/17 07:00 Creatinine 1.0 mg/dL (0.7-1.3) D 12/02/17 07:00 Creat Clearance w eGFR > 60 (>60) 12/02/17 07:00 Random Glucose 139 mg/dL (74-106) H D 12/02/17 07:00 Calcium 8.6 mg/dL (8.5-10.1) 12/02/17 07:00 Total Bilirubin 0.5 mg/dL (0.2-1.0) D 12/02/17 07:00 AST 15 U/L (15-37) D 12/02/17 07:00 ALT 19 U/L (12-78) 12/02/17 07:00 Alkaline Phosphatase 98 U/L (45-117) 12/02/17 07:00 Total Protein 6.9 g/dl (6.4-8.2) 12/02/17 07:00 Albumin 3.2 g/dl (3.4-5.0) L 12/02/17 07:00 Urine Color Yellow 12/01/17 Unknown Urine Appearance Slcloudy 12/01/17 Unknown Urine pH 6.0 (5.0-8.0) 12/01/17 Unknown Ur Specific [place] 1.018 (1.001-1.035) 12/01/17 Unknown Urine Protein Negative (NEGATIVE) 12/01/17 Unknown Urine Glucose (UA) Negative (NEGATIVE) 12/01/17 Unknown Urine Ketones Negative (NEGATIVE) 12/01/17 Unknown Urine Blood Negative (NEGATIVE) 12/01/17 Unknown Urine Nitrite Negative (NEGATIVE) 12/01/17 Unknown Urine Bilirubin Negative (NEGATIVE) 12/01/17 Unknown Urine Urobilinogen Negative mg/dL (0.2-1.0) 12/01/17 Unknown Ur Leukocyte Esterase Negative (NEGATIVE) 12/01/17 Unknown RPR Titer Nonreactive (NONREACTIVE) 12/02/17 07:00 LABS WNL LUNGS; CLEAR TO A/P - NO WHEEZE,RALES OR RHONCHI Assessment: 12/03/17 12:01 WITHDRAWAL SX Plan: CONTINUE DETOX
[2017-12-03] MEDS: diazePAM 5 MG TABLET PO PRN (22:23)
[2017-12-03] MEDS: traZODone HCL 100 MG TABLET (FP) PO SCH (22:23)
[2017-12-03] MEDS: THIAMINE HCL 100 MG TABLET (FP) PO SCH (22:23)
[2017-12-03] MEDS: MINERAL OIL/PETROLAT/WATER TOPICAL CREAM 113 GM JAR TP SCH (23:04)
[2017-12-04] MEDS: CYCLOBENZAPRINE HCL 10 MG TABLET (FP) PO SCH ×3 (05:38→22:31)
[2017-12-04] MEDS: diazePAM 5 MG TABLET PO PRN ×2 (05:38→10:05)
[2017-12-04] MEDS ORDERED: METHADONE HCL 5 MG TABLET (FOR DETOX USE ONLY) PO ONE (10:00)
[2017-12-04] MEDS: NICOTINE 14 MG/24 HOURS TOPICAL PATCH TD SCH (10:05)
[2017-12-04] MEDS: PRENATAL VITAMINS W/ FOLIC ACID TABLET (FP) PO SCH (10:06)
--- NOTE | 2017-12-04 16:27 | PN ---
BHS Progress Note (SOAP) Subjective: Shakes, sweats, diarrhea, cough Objective: 12/04/17 16:26 Vital Signs - 8 hr 12/04/17 12/04/17 09:49 14:03 Temperature 97.3 F L 96.5 F L Pulse Rate 85 68 Respiratory 20 18 Rate Blood Pressure 131/81 127/71 Laboratory Last Values WBC 7.3 K/mm3 (4.0-10.0) 12/02/17 07:00 RBC 4.90 M/mm3 (4.00-5.60) 12/02/17 07:00 Hgb 12.6 GM/dL (11.7-16.9) 12/02/17 07:00 Hct 40.4 % (35.4-49) 12/02/17 07:00 MCV 82.4 fl (80-96) 12/02/17 07:00 MCH 25.6 pg (25.7-33.7) L 12/02/17 07:00 MCHC 31.1 g/dl (32.0-35.9) L 12/02/17 07:00 RDW 15.5 % (11.9-15.9) 12/02/17 07:00 Plt Count 296 K/MM3 (134-434) 12/02/17 07:00 MPV 9.2 fl (7.5-11.1) 12/02/17 07:00 Sodium 140 mmol/L (136-145) 12/02/17 07:00 Potassium 4.1 mmol/L (3.5-5.1) 12/02/17 07:00 Chloride 105 mmol/L (98-107) 12/02/17 07:00 Carbon Dioxide 30 mmol/L (21-32) 12/02/17 07:00 Anion Gap 5 (8-16) L 12/02/17 07:00 BUN 7 mg/dL (7-18) 12/02/17 07:00 Creatinine 1.0 mg/dL (0.7-1.3) D 12/02/17 07:00 Creat Clearance w eGFR > 60 (>60) 12/02/17 07:00 Random Glucose 139 mg/dL (74-106) H D 12/02/17 07:00 Calcium 8.6 mg/dL (8.5-10.1) 12/02/17 07:00 Total Bilirubin 0.5 mg/dL (0.2-1.0) D 12/02/17 07:00 AST 15 U/L (15-37) D 12/02/17 07:00 ALT 19 U/L (12-78) 12/02/17 07:00 Alkaline Phosphatase 98 U/L (45-117) 12/02/17 07:00 Total Protein 6.9 g/dl (6.4-8.2) 12/02/17 07:00 Albumin 3.2 g/dl (3.4-5.0) L 12/02/17 07:00 Urine Color Yellow 12/01/17 Unknown Urine Appearance Slcloudy 12/01/17 Unknown Urine pH 6.0 (5.0-8.0) 12/01/17 Unknown Ur Specific [place] 1.018 (1.001-1.035) 12/01/17 Unknown Urine Protein Negative (NEGATIVE) 12/01/17 Unknown Urine Glucose (UA) Negative (NEGATIVE) 12/01/17 Unknown Urine Ketones Negative (NEGATIVE) 12/01/17 Unknown Urine Blood Negative (NEGATIVE) 12/01/17 Unknown Urine Nitrite Negative (NEGATIVE) 12/01/17 Unknown Urine Bilirubin Negative (NEGATIVE) 12/01/17 Unknown Urine Urobilinogen Negative mg/dL (0.2-1.0) 12/01/17 Unknown Ur Leukocyte Esterase Negative (NEGATIVE) 12/01/17 Unknown RPR Titer Nonreactive (NONREACTIVE) 12/02/17 07:00 Labs noted Assessment: 12/04/17 16:26 Withdrawal sx Plan: Continue detox
[2017-12-04] MEDS: THIAMINE HCL 100 MG TABLET (FP) PO SCH (22:30)
[2017-12-04] MEDS: traZODone HCL 100 MG TABLET (FP) PO SCH (22:31)
[2017-12-04] MEDS: MINERAL OIL/PETROLAT/WATER TOPICAL CREAM 113 GM JAR TP SCH (22:32)
[2017-12-05] MEDS: CYCLOBENZAPRINE HCL 10 MG TABLET (FP) PO SCH ×3 (05:28→22:34)
[2017-12-05] MEDS ORDERED: METHADONE HCL 10 MG TABLET (FOR DETOX USE ONLY) PO ONE (10:00)
[2017-12-05] MEDS: NICOTINE 14 MG/24 HOURS TOPICAL PATCH TD SCH (10:28)
[2017-12-05] MEDS: PRENATAL VITAMINS W/ FOLIC ACID TABLET (FP) PO SCH (10:28)
--- NOTE | 2017-12-05 12:48 | PN ---
BHS Progress Note (SOAP) Subjective: Sweating,interrupted sleep,restless Objective: 12/05/17 12:47 Vital Signs - 8 hr 12/05/17 12/05/17 06:22 09:57 Temperature 97.8 F 96.9 F L Pulse Rate 66 86 Respiratory 18 18 Rate Blood Pressure 122/60 139/71 Laboratory Last Values WBC 7.3 K/mm3 (4.0-10.0) 12/02/17 07:00 RBC 4.90 M/mm3 (4.00-5.60) 12/02/17 07:00 Hgb 12.6 GM/dL (11.7-16.9) 12/02/17 07:00 Hct 40.4 % (35.4-49) 12/02/17 07:00 MCV 82.4 fl (80-96) 12/02/17 07:00 MCH 25.6 pg (25.7-33.7) L 12/02/17 07:00 MCHC 31.1 g/dl (32.0-35.9) L 12/02/17 07:00 RDW 15.5 % (11.9-15.9) 12/02/17 07:00 Plt Count 296 K/MM3 (134-434) 12/02/17 07:00 MPV 9.2 fl (7.5-11.1) 12/02/17 07:00 Sodium 140 mmol/L (136-145) 12/02/17 07:00 Potassium 4.1 mmol/L (3.5-5.1) 12/02/17 07:00 Chloride 105 mmol/L (98-107) 12/02/17 07:00 Carbon Dioxide 30 mmol/L (21-32) 12/02/17 07:00 Anion Gap 5 (8-16) L 12/02/17 07:00 BUN 7 mg/dL (7-18) 12/02/17 07:00 Creatinine 1.0 mg/dL (0.7-1.3) D 12/02/17 07:00 Creat Clearance w eGFR > 60 (>60) 12/02/17 07:00 Random Glucose 139 mg/dL (74-106) H D 12/02/17 07:00 Calcium 8.6 mg/dL (8.5-10.1) 12/02/17 07:00 Total Bilirubin 0.5 mg/dL (0.2-1.0) D 12/02/17 07:00 AST 15 U/L (15-37) D 12/02/17 07:00 ALT 19 U/L (12-78) 12/02/17 07:00 Alkaline Phosphatase 98 U/L (45-117) 12/02/17 07:00 Total Protein 6.9 g/dl (6.4-8.2) 12/02/17 07:00 Albumin 3.2 g/dl (3.4-5.0) L 12/02/17 07:00 Urine Color Yellow 12/01/17 Unknown Urine Appearance Slcloudy 12/01/17 Unknown Urine pH 6.0 (5.0-8.0) 12/01/17 Unknown Ur Specific [place] 1.018 (1.001-1.035) 12/01/17 Unknown Urine Protein Negative (NEGATIVE) 12/01/17 Unknown Urine Glucose (UA) Negative (NEGATIVE) 12/01/17 Unknown Urine Ketones Negative (NEGATIVE) 12/01/17 Unknown Urine Blood Negative (NEGATIVE) 12/01/17 Unknown Urine Nitrite Negative (NEGATIVE) 12/01/17 Unknown Urine Bilirubin Negative (NEGATIVE) 12/01/17 Unknown Urine Urobilinogen Negative mg/dL (0.2-1.0) 12/01/17 Unknown Ur Leukocyte Esterase Negative (NEGATIVE) 12/01/17 Unknown RPR Titer Nonreactive (NONREACTIVE) 12/02/17 07:00 labs noted Assessment: 12/05/17 12:47 Withdrawal sx. Plan: Continue detox
[2017-12-05] MEDS: THIAMINE HCL 100 MG TABLET (FP) PO SCH (22:34)
[2017-12-05] MEDS: traZODone HCL 100 MG TABLET (FP) PO SCH (22:34)
[2017-12-05] MEDS: MINERAL OIL/PETROLAT/WATER TOPICAL CREAM 113 GM JAR TP SCH (23:03)
[2017-12-06] MEDS: CYCLOBENZAPRINE HCL 10 MG TABLET (FP) PO SCH (05:00)
[2017-12-06] MEDS ORDERED: METHADONE HCL 5 MG TABLET (FOR DETOX USE ONLY) PO ONE (06:00)
[2017-12-06] MEDS: PRENATAL VITAMINS W/ FOLIC ACID TABLET (FP) PO SCH (10:37)
[2017-12-06] MEDS: NICOTINE 14 MG/24 HOURS TOPICAL PATCH TD SCH (10:37)
[2017-12-06 11:12] VITALS: BP 139/76; PULSE 83; TEMP 98.9
--- NOTE | 2017-12-06 12:38 | DS ---
[facility] Detox Discharge Summary Admission Date: 12/01/17 Discharge Date: 12/06/17 - History Present History: Alcohol Dependence, Cannabis Dependence, Opioid Dependence Pertinent Past History: PPD Positive - Physical Exam Results Vital Signs: Vital Signs Temperature 98.9 F 12/06/17 11:11 Pulse Rate 83 12/06/17 11:11 Respiratory Rate 18 12/06/17 11:11 Blood Pressure 139/76 12/06/17 11:11 O2 Sat by Pulse Oximetry (%) Pertinent Admission Physical Exam Findings: Withdrawal symptoms Laboratory Tests 12/01/17 12/02/17 12/02/17 Unknown 07:00 07:00 WBC 7.3 RBC 4.90 Hgb 12.6 Hct 40.4 MCV 82.4 MCH 25.6 L MCHC 31.1 L RDW 15.5 Plt Count 296 MPV 9.2 Sodium 140 Potassium 4.1 Chloride 105 Carbon Dioxide 30 Anion Gap 5 L BUN 7 Creatinine 1.0 D Creat Clearance w eGFR > 60 Random Glucose 139 H D Calcium 8.6 Total Bilirubin 0.5 D AST 15 D ALT 19 Alkaline Phosphatase 98 Total Protein 6.9 Albumin 3.2 L Urine Color Yellow Urine Appearance Slcloudy Urine pH 6.0 Ur Specific [place] 1.018 Urine Protein Negative Urine Glucose (UA) Negative Urine Ketones Negative Urine Blood Negative Urine Nitrite Negative Urine Bilirubin Negative Urine Urobilinogen Negative Ur Leukocyte Esterase Negative RPR Titer 12/02/17 07:00 WBC RBC Hgb Hct MCV MCH MCHC RDW Plt Count MPV Sodium Potassium Chloride Carbon Dioxide Anion Gap BUN Creatinine Creat Clearance w eGFR Random Glucose Calcium Total Bilirubin AST ALT Alkaline Phosphatase Total Protein Albumin Urine Color Urine Appearance Urine pH Ur Specific [place] Urine Protein Urine Glucose (UA) Urine Ketones Urine Blood Urine Nitrite Urine Bilirubin Urine Urobilinogen Ur Leukocyte Esterase RPR Titer Nonreactive Labs noted - Treatment Hospital Course: Detox Protocol Followed, Detoxed Safely, Responded well, Discharged Condition Good, Rehab Referral Accepted - Medication Discharge Medications: Ambulatory Orders NK [No Known Home Medication] 12/01/17 - Diagnosis (1) Alcohol dependence with uncomplicated withdrawal Current Visit: Yes Status: Acute (2) Nicotine dependence Current Visit: Yes Status: Chronic Qualifiers: Nicotine product type: cigarettes Substance use status: in withdrawal Qualified Code(s): F17.213 - Nicotine dependence, cigarettes, with withdrawal (3) Opioid dependence with withdrawal Current Visit: Yes Status: Acute (4) Cannabis dependence Current Visit: Yes Status: Chronic (5) PPD positive Current Visit: Yes Status: Chronic (6) Depression Current Visit: Yes Status: Chronic - AMA Did Patient Leave Against Medical Advice: No
== END 2017-12-06 13:41 | disposition other institution (70) | DRG 773 ==
LOC: YASAS 18:28 → Y3N 19:59
PROVIDERS: ADMIT Internal Medicine; ATTEND Internal Medicine
PROC: HZ2ZZZZ Detoxification Services for Substance Abuse Treatment (ICD-10-PCS; principal; 2017-12-01)
DX: F11.23 Opioid dependence with withdrawal (principal); F10.230 Alcohol dependence with withdrawal, uncomplicated; F12.20 Cannabis dependence, uncomplicated; F17.210 Nicotine dependence, cigarettes, uncomplicated; F32.9 Major depressive disorder, single episode, unspecified; F33.9 Major depressive disorder, recurrent, unspecified; G47.00 Insomnia, unspecified; R76.11 Nonspecific reaction to tuberculin skin test without active tuberculosis; R63.4 Abnormal weight loss; Z68.31 Body mass index [BMI] 31.0-31.9, adult; R26.89 Other abnormalities of gait and mobility; Z99.89 Dependence on other enabling machines and devices
CPT/HCPCS: 36415; 80053; 81003; 85027; 86593; 93005; 93010

== ENCOUNTER 2017-12-06 14:15 | Inpatient (IN) | payer OTHER ==
[2017-12-06 14:47] VITALS: BMI 28.9
[2017-12-06] MEDS ORDERED: MAG HYDROX/AL HYDROX/SIMETH 30 ML UNIT-DOSE CUP PO PRN (15:04)
[2017-12-06] MEDS ORDERED: MENTHOL/PHENOL 1 EACH UD MM PRN (15:04)
[2017-12-06] MEDS ORDERED: MAGNESIUM HYDROX 2400MG/30ML ORAL SUSPENSION 30 ML CUP PO PRN (15:04)
[2017-12-06] MEDS ORDERED: MAGNESIUM CITRATE 300 ML BOTTLE PO PRN (15:04)
[2017-12-06] MEDS ORDERED: P-EPHED 60MG/TRIPROLIDI 2.5MG TABLET PO PRN (15:04)
[2017-12-06] MEDS ORDERED: guaiFENesin/D-METHORPHAN HB 10 ML UNIT-DOSE CUPS PO PRN (15:04)
[2017-12-06] MEDS ORDERED: LOPERAMIDE HCL 2 MG CAPSULE PO PRN (15:04)
--- NOTE | 2017-12-06 15:04 | HP ---
[facility] Rehab Assess/Revision - Admission History Admitted to Rehab from: [facility] - Vital signs Vital Signs: Vital Signs Period Temp Pulse Resp BP Sys/Ruiz Pulse Ox Last 24 Hr 97.7 F 79 18 109/60 - Findings Detox History & Physical reviewed: Yes Concur with findings: Yes Inpatient Rehab Admission - Initial Determination Free of communicable disease: Yes - Rehab Admission Criteria Previous failed treatment: Yes Poor recovery environment: Yes Patient is meeting Inpatient Rehab admission criteria:: Yes
[2017-12-06] MEDS: CYCLOBENZAPRINE HCL 10 MG TABLET (FP) PO PRN (21:12)
[2017-12-06] MEDS: traZODone HCL 100 MG TABLET (FP) PO SCH (21:12)
[2017-12-06] MEDS: THIAMINE HCL 100 MG TABLET (FP) PO SCH (21:13)
[2017-12-07] MEDS: CYCLOBENZAPRINE HCL 10 MG TABLET (FP) PO PRN ×3 (06:10→21:11)
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
[2017-12-07] MEDS: PRENATAL VITAMINS W/ FOLIC ACID TABLET (FP) PO SCH (10:03)
[2017-12-07] MEDS: IBUPROFEN 400 MG TABLET (FP) PO PRN (10:03)
[2017-12-07] MEDS: NICOTINE 14 MG/24 HOURS TOPICAL PATCH TD SCH (10:03)
[2017-12-07] MEDS: ACETAMINOPHEN 325 MG TABLET (FP) PO PRN (14:52)
[2017-12-07] MEDS: THIAMINE HCL 100 MG TABLET (FP) PO SCH (21:09)
[2017-12-07] MEDS: traZODone HCL 100 MG TABLET (FP) PO SCH (21:11)
[2017-12-08] MEDS: ACETAMINOPHEN 325 MG TABLET (FP) PO PRN (05:59)
[2017-12-08] MEDS: CYCLOBENZAPRINE HCL 10 MG TABLET (FP) PO PRN ×3 (06:01→21:27)
[2017-12-08] MEDS: PRENATAL VITAMINS W/ FOLIC ACID TABLET (FP) PO SCH (09:53)
[2017-12-08] MEDS: NICOTINE 14 MG/24 HOURS TOPICAL PATCH TD SCH (09:53)
[2017-12-08] MEDS: LIDOCAINE 5% TOPICAL PATCH TP SCH (15:22)
[2017-12-08] MEDS: traZODone HCL 100 MG TABLET (FP) PO SCH (21:27)
[2017-12-08] MEDS: THIAMINE HCL 100 MG TABLET (FP) PO SCH (21:27)
[2017-12-08] MEDS: LIDOCAINE PATCH REMOVAL MC SCH (21:27)
[2017-12-09] MEDS: ACETAMINOPHEN 325 MG TABLET (FP) PO PRN (05:58)
[2017-12-09] MEDS: CYCLOBENZAPRINE HCL 10 MG TABLET (FP) PO PRN ×3 (05:58→21:09)
[2017-12-09] MEDS: PRENATAL VITAMINS W/ FOLIC ACID TABLET (FP) PO SCH (09:57)
[2017-12-09] MEDS: LIDOCAINE 5% TOPICAL PATCH TP SCH (09:57)
[2017-12-09] MEDS: NICOTINE 14 MG/24 HOURS TOPICAL PATCH TD SCH (09:57)
[2017-12-09] MEDS: THIAMINE HCL 100 MG TABLET (FP) PO SCH (21:07)
[2017-12-09] MEDS: traZODone HCL 100 MG TABLET (FP) PO SCH (21:07)
[2017-12-09] MEDS: LIDOCAINE PATCH REMOVAL MC SCH (21:09)
[2017-12-10] MEDS: ACETAMINOPHEN 325 MG TABLET (FP) PO PRN ×2 (05:59→14:18)
[2017-12-10] MEDS: CYCLOBENZAPRINE HCL 10 MG TABLET (FP) PO PRN ×3 (05:59→21:24)
[2017-12-10] MEDS: NICOTINE 14 MG/24 HOURS TOPICAL PATCH TD SCH (09:53)
[2017-12-10] MEDS: PRENATAL VITAMINS W/ FOLIC ACID TABLET (FP) PO SCH (09:53)
[2017-12-10] MEDS: LIDOCAINE 5% TOPICAL PATCH TP SCH (09:53)
[2017-12-10] MEDS: THIAMINE HCL 100 MG TABLET (FP) PO SCH (21:24)
[2017-12-10] MEDS: traZODone HCL 100 MG TABLET (FP) PO SCH (21:24)
[2017-12-10] MEDS: LIDOCAINE PATCH REMOVAL MC SCH (21:24)
[2017-12-11] MEDS: ACETAMINOPHEN 325 MG TABLET (FP) PO PRN (06:38)
[2017-12-11] MEDS: CYCLOBENZAPRINE HCL 10 MG TABLET (FP) PO PRN ×3 (06:38→21:39)
[2017-12-11] MEDS: LIDOCAINE 5% TOPICAL PATCH TP SCH (09:52)
[2017-12-11] MEDS: NICOTINE 14 MG/24 HOURS TOPICAL PATCH TD SCH (09:53)
[2017-12-11] MEDS: PRENATAL VITAMINS W/ FOLIC ACID TABLET (FP) PO SCH (09:53)
[2017-12-11] MEDS: traZODone HCL 100 MG TABLET (FP) PO SCH (21:39)
[2017-12-11] MEDS: THIAMINE HCL 100 MG TABLET (FP) PO SCH (21:39)
[2017-12-11] MEDS: LIDOCAINE PATCH REMOVAL MC SCH (21:40)
[2017-12-12] MEDS: ACETAMINOPHEN 325 MG TABLET (FP) PO PRN ×2 (06:11→21:46)
[2017-12-12] MEDS: CYCLOBENZAPRINE HCL 10 MG TABLET (FP) PO PRN ×3 (06:11→21:46)
[2017-12-12] MEDS: NICOTINE 14 MG/24 HOURS TOPICAL PATCH TD SCH (09:41)
[2017-12-12] MEDS: LIDOCAINE 5% TOPICAL PATCH TP SCH (09:41)
[2017-12-12] MEDS: PRENATAL VITAMINS W/ FOLIC ACID TABLET (FP) PO SCH (09:41)
[2017-12-12] MEDS: traZODone HCL 100 MG TABLET (FP) PO SCH (21:46)
[2017-12-12] MEDS: THIAMINE HCL 100 MG TABLET (FP) PO SCH (21:46)
[2017-12-12] MEDS: LIDOCAINE PATCH REMOVAL MC SCH (21:47)
[2017-12-13] MEDS: ACETAMINOPHEN 325 MG TABLET (FP) PO PRN (06:46)
[2017-12-13] MEDS: CYCLOBENZAPRINE HCL 10 MG TABLET (FP) PO PRN (06:46)
[2017-12-13] MEDS: NICOTINE 14 MG/24 HOURS TOPICAL PATCH TD SCH (09:35)
[2017-12-13] MEDS: PRENATAL VITAMINS W/ FOLIC ACID TABLET (FP) PO SCH (09:35)
[2017-12-13] MEDS: LIDOCAINE 5% TOPICAL PATCH TP SCH (09:35)
[2017-12-14] MEDS: ACETAMINOPHEN 325 MG TABLET (FP) PO PRN ×3 (05:58→21:38)
[2017-12-14] MEDS: CYCLOBENZAPRINE HCL 10 MG TABLET (FP) PO PRN ×3 (05:59→21:39)
[2017-12-14] MEDS: IBUPROFEN 400 MG TABLET (FP) PO PRN (10:01)
[2017-12-14] MEDS: PRENATAL VITAMINS W/ FOLIC ACID TABLET (FP) PO SCH (10:01)
[2017-12-14] MEDS: NICOTINE 14 MG/24 HOURS TOPICAL PATCH TD SCH (10:01)
[2017-12-14] MEDS: LIDOCAINE 5% TOPICAL PATCH TP SCH (10:03)
[2017-12-14] MEDS: LIDOCAINE PATCH REMOVAL MC SCH ×2 (18:36→21:40)
[2017-12-14] MEDS: traZODone HCL 100 MG TABLET (FP) PO SCH ×2 (18:36→21:39)
[2017-12-14] MEDS: THIAMINE HCL 100 MG TABLET (FP) PO SCH ×2 (18:36→21:38)
[2017-12-15] MEDS: ACETAMINOPHEN 325 MG TABLET (FP) PO PRN ×3 (06:10→21:37)
[2017-12-15] MEDS: CYCLOBENZAPRINE HCL 10 MG TABLET (FP) PO PRN ×3 (06:11→21:37)
[2017-12-15] MEDS: NICOTINE 14 MG/24 HOURS TOPICAL PATCH TD SCH (09:50)
[2017-12-15] MEDS: LIDOCAINE 5% TOPICAL PATCH TP SCH (09:50)
[2017-12-15] MEDS: PRENATAL VITAMINS W/ FOLIC ACID TABLET (FP) PO SCH (09:50)
[2017-12-15] MEDS: THIAMINE HCL 100 MG TABLET (FP) PO SCH (21:37)
[2017-12-15] MEDS: traZODone HCL 100 MG TABLET (FP) PO SCH (21:37)
[2017-12-15] MEDS: LIDOCAINE PATCH REMOVAL MC SCH (21:38)
[2017-12-16] MEDS: ACETAMINOPHEN 325 MG TABLET (FP) PO PRN ×2 (06:50→21:47)
[2017-12-16] MEDS: CYCLOBENZAPRINE HCL 10 MG TABLET (FP) PO PRN ×3 (06:51→21:46)
[2017-12-16] MEDS: LIDOCAINE 5% TOPICAL PATCH TP SCH (09:47)
[2017-12-16] MEDS: PRENATAL VITAMINS W/ FOLIC ACID TABLET (FP) PO SCH (09:47)
[2017-12-16] MEDS: NICOTINE 14 MG/24 HOURS TOPICAL PATCH TD SCH (09:47)
[2017-12-16] MEDS: traZODone HCL 100 MG TABLET (FP) PO SCH (21:46)
[2017-12-16] MEDS: THIAMINE HCL 100 MG TABLET (FP) PO SCH (21:46)
[2017-12-16] MEDS: LIDOCAINE PATCH REMOVAL MC SCH (21:48)
[2017-12-17] MEDS: ACETAMINOPHEN 325 MG TABLET (FP) PO PRN ×3 (05:57→21:20)
[2017-12-17] MEDS: CYCLOBENZAPRINE HCL 10 MG TABLET (FP) PO PRN ×3 (05:57→21:20)
[2017-12-17] MEDS: NICOTINE 14 MG/24 HOURS TOPICAL PATCH TD SCH (09:58)
[2017-12-17] MEDS: LIDOCAINE 5% TOPICAL PATCH TP SCH (09:58)
[2017-12-17] MEDS: PRENATAL VITAMINS W/ FOLIC ACID TABLET (FP) PO SCH (09:58)
[2017-12-17] MEDS: THIAMINE HCL 100 MG TABLET (FP) PO SCH (21:20)
[2017-12-17] MEDS: traZODone HCL 100 MG TABLET (FP) PO SCH (21:20)
[2017-12-17] MEDS: LIDOCAINE PATCH REMOVAL MC SCH (21:21)
[2017-12-18] MEDS: ACETAMINOPHEN 325 MG TABLET (FP) PO PRN ×3 (06:33→21:44)
[2017-12-18] MEDS: CYCLOBENZAPRINE HCL 10 MG TABLET (FP) PO PRN ×3 (06:34→21:44)
[2017-12-18] MEDS: PRENATAL VITAMINS W/ FOLIC ACID TABLET (FP) PO SCH (09:53)
[2017-12-18] MEDS: NICOTINE 14 MG/24 HOURS TOPICAL PATCH TD SCH (09:53)
[2017-12-18] MEDS: LIDOCAINE 5% TOPICAL PATCH TP SCH (09:53)
[2017-12-18] MEDS: THIAMINE HCL 100 MG TABLET (FP) PO SCH (21:44)
[2017-12-18] MEDS: traZODone HCL 100 MG TABLET (FP) PO SCH (21:44)
[2017-12-18] MEDS: LIDOCAINE PATCH REMOVAL MC SCH (21:45)
[2017-12-18] MEDS ORDERED: diphenhydrAMINE HCL 25 MG CAPSULE (FP) PO PRN (22:34)
[2017-12-18] MEDS ORDERED: HYDROCORTISONE 1% TOPICAL CREAM 30 GM TUBE TP PRN (22:35)
--- NOTE | 2017-12-19 01:30 | PN ---
S Progress Note Note: ASKED TO SEE PT FOR "BUG BITES" PT STATES HE WAS BITTEN BY A BUG. SHOWED PROVIDER A BUG WRAPPED UP IN PAPER. COMPLAINT OF ITCHING TO SITE. DENIES FEVER OR CHILLS LEFT FOREARM NOTED WITH 3 SMALL AREAS OF URTICARIA LIKE RASH WITH SLIGHT REDNESS. SKIN INTACT. Vital Signs Temperature 98.4 F 12/18/17 06:47 Pulse Rate 87 12/18/17 06:47 Respiratory Rate 20 12/19/17 00:30 Blood Pressure 126/75 12/18/17 06:47 O2 Sat by Pulse Oximetry (%) BENADRYL ORDERED HYDROCORTISONE PRN
[2017-12-19] MEDS: ACETAMINOPHEN 325 MG TABLET (FP) PO PRN ×3 (06:04→21:22)
[2017-12-19] MEDS: CYCLOBENZAPRINE HCL 10 MG TABLET (FP) PO PRN ×3 (06:05→21:22)
[2017-12-19] MEDS: PRENATAL VITAMINS W/ FOLIC ACID TABLET (FP) PO SCH (09:20)
[2017-12-19] MEDS: NICOTINE 14 MG/24 HOURS TOPICAL PATCH TD SCH (09:20)
[2017-12-19] MEDS: LIDOCAINE 5% TOPICAL PATCH TP SCH (09:21)
[2017-12-19] MEDS: traZODone HCL 100 MG TABLET (FP) PO SCH (21:22)
[2017-12-19] MEDS: THIAMINE HCL 100 MG TABLET (FP) PO SCH (21:22)
[2017-12-19] MEDS: LIDOCAINE PATCH REMOVAL MC SCH (22:09)
[2017-12-20] MEDS: ACETAMINOPHEN 325 MG TABLET (FP) PO PRN ×2 (06:00→21:20)
[2017-12-20] MEDS: CYCLOBENZAPRINE HCL 10 MG TABLET (FP) PO PRN ×3 (06:01→21:20)
[2017-12-20] MEDS: NICOTINE 14 MG/24 HOURS TOPICAL PATCH TD SCH (09:28)
[2017-12-20] MEDS: PRENATAL VITAMINS W/ FOLIC ACID TABLET (FP) PO SCH (09:28)
[2017-12-20] MEDS: LIDOCAINE 5% TOPICAL PATCH TP SCH (09:28)
[2017-12-20] MEDS: IBUPROFEN 400 MG TABLET (FP) PO PRN (14:19)
[2017-12-20] MEDS: THIAMINE HCL 100 MG TABLET (FP) PO SCH (21:20)
[2017-12-20] MEDS: traZODone HCL 100 MG TABLET (FP) PO SCH (21:20)
[2017-12-20] MEDS: LIDOCAINE PATCH REMOVAL MC SCH (21:21)
[2017-12-21] MEDS: ACETAMINOPHEN 325 MG TABLET (FP) PO PRN (06:08)
[2017-12-21] MEDS: CYCLOBENZAPRINE HCL 10 MG TABLET (FP) PO PRN ×2 (06:08→21:05)
[2017-12-21] MEDS: PRENATAL VITAMINS W/ FOLIC ACID TABLET (FP) PO SCH (09:48)
[2017-12-21] MEDS: LIDOCAINE 5% TOPICAL PATCH TP SCH (09:48)
[2017-12-21] MEDS: IBUPROFEN 400 MG TABLET (FP) PO PRN ×2 (09:48→21:04)
[2017-12-21] MEDS: NICOTINE 14 MG/24 HOURS TOPICAL PATCH TD SCH (09:48)
[2017-12-21] MEDS: THIAMINE HCL 100 MG TABLET (FP) PO SCH (21:03)
[2017-12-21] MEDS: LIDOCAINE PATCH REMOVAL MC SCH (21:03)
[2017-12-21] MEDS: traZODone HCL 100 MG TABLET (FP) PO SCH (21:03)
[2017-12-22] MEDS: CYCLOBENZAPRINE HCL 10 MG TABLET (FP) PO PRN ×3 (06:40→21:08)
[2017-12-22] MEDS: IBUPROFEN 400 MG TABLET (FP) PO PRN (06:40)
[2017-12-22] MEDS: PRENATAL VITAMINS W/ FOLIC ACID TABLET (FP) PO SCH (09:55)
[2017-12-22] MEDS: LIDOCAINE 5% TOPICAL PATCH TP SCH (09:55)
[2017-12-22] MEDS: NICOTINE 14 MG/24 HOURS TOPICAL PATCH TD SCH (09:55)
[2017-12-22] MEDS: ACETAMINOPHEN 325 MG TABLET (FP) PO PRN ×2 (15:28→21:07)
[2017-12-22] MEDS: THIAMINE HCL 100 MG TABLET (FP) PO SCH (21:07)
[2017-12-22] MEDS: traZODone HCL 100 MG TABLET (FP) PO SCH (21:08)
[2017-12-22] MEDS: LIDOCAINE PATCH REMOVAL MC SCH (21:10)
[2017-12-23] MEDS: ACETAMINOPHEN 325 MG TABLET (FP) PO PRN ×3 (06:21→21:26)
[2017-12-23] MEDS: CYCLOBENZAPRINE HCL 10 MG TABLET (FP) PO PRN ×3 (06:22→21:26)
[2017-12-23] MEDS: NICOTINE 14 MG/24 HOURS TOPICAL PATCH TD SCH (09:57)
[2017-12-23] MEDS: PRENATAL VITAMINS W/ FOLIC ACID TABLET (FP) PO SCH (09:57)
[2017-12-23] MEDS: LIDOCAINE 5% TOPICAL PATCH TP SCH (09:57)
[2017-12-23] MEDS: IBUPROFEN 400 MG TABLET (FP) PO PRN ×2 (09:58→16:48)
[2017-12-23] MEDS: traZODone HCL 100 MG TABLET (FP) PO SCH (21:25)
[2017-12-23] MEDS: THIAMINE HCL 100 MG TABLET (FP) PO SCH (21:25)
[2017-12-23] MEDS: LIDOCAINE PATCH REMOVAL MC SCH (21:27)
[2017-12-24] MEDS: ACETAMINOPHEN 325 MG TABLET (FP) PO PRN ×3 (05:51→21:09)
[2017-12-24] MEDS: CYCLOBENZAPRINE HCL 10 MG TABLET (FP) PO PRN ×3 (05:51→21:09)
[2017-12-24] MEDS: PRENATAL VITAMINS W/ FOLIC ACID TABLET (FP) PO SCH (09:56)
[2017-12-24] MEDS: IBUPROFEN 400 MG TABLET (FP) PO PRN (09:56)
[2017-12-24] MEDS: NICOTINE 14 MG/24 HOURS TOPICAL PATCH TD SCH (09:56)
[2017-12-24] MEDS: LIDOCAINE 5% TOPICAL PATCH TP SCH (09:57)
[2017-12-24] MEDS: THIAMINE HCL 100 MG TABLET (FP) PO SCH (21:09)
[2017-12-24] MEDS: traZODone HCL 100 MG TABLET (FP) PO SCH (21:09)
[2017-12-24] MEDS: LIDOCAINE PATCH REMOVAL MC SCH (21:10)
[2017-12-25] MEDS: ACETAMINOPHEN 325 MG TABLET (FP) PO PRN ×3 (06:48→21:43)
[2017-12-25] MEDS: CYCLOBENZAPRINE HCL 10 MG TABLET (FP) PO PRN ×3 (06:49→21:43)
[2017-12-25] MEDS: LIDOCAINE 5% TOPICAL PATCH TP SCH (09:41)
[2017-12-25] MEDS: NICOTINE 14 MG/24 HOURS TOPICAL PATCH TD SCH (09:41)
[2017-12-25] MEDS: PRENATAL VITAMINS W/ FOLIC ACID TABLET (FP) PO SCH (09:41)
[2017-12-25] MEDS: IBUPROFEN 400 MG TABLET (FP) PO PRN (09:42)
[2017-12-25] MEDS: LIDOCAINE PATCH REMOVAL MC SCH (21:40)
[2017-12-25] MEDS: traZODone HCL 100 MG TABLET (FP) PO SCH (21:40)
[2017-12-25] MEDS: THIAMINE HCL 100 MG TABLET (FP) PO SCH (21:40)
[2017-12-26] MEDS: ACETAMINOPHEN 325 MG TABLET (FP) PO PRN ×2 (06:27→14:42)
[2017-12-26] MEDS: CYCLOBENZAPRINE HCL 10 MG TABLET (FP) PO PRN ×3 (06:27→21:11)
[2017-12-26] MEDS: NICOTINE 14 MG/24 HOURS TOPICAL PATCH TD SCH (09:39)
[2017-12-26] MEDS: LIDOCAINE 5% TOPICAL PATCH TP SCH (09:39)
[2017-12-26] MEDS: PRENATAL VITAMINS W/ FOLIC ACID TABLET (FP) PO SCH (09:39)
[2017-12-26] MEDS: IBUPROFEN 400 MG TABLET (FP) PO PRN ×2 (09:40→21:10)
[2017-12-26] MEDS: traZODone HCL 100 MG TABLET (FP) PO SCH (21:09)
[2017-12-26] MEDS: THIAMINE HCL 100 MG TABLET (FP) PO SCH (21:09)
[2017-12-26] MEDS: LIDOCAINE PATCH REMOVAL MC SCH (22:23)
[2017-12-27] MEDS: CYCLOBENZAPRINE HCL 10 MG TABLET (FP) PO PRN ×3 (06:09→21:21)
[2017-12-27] MEDS: ACETAMINOPHEN 325 MG TABLET (FP) PO PRN ×2 (06:09→14:07)
[2017-12-27] MEDS: PRENATAL VITAMINS W/ FOLIC ACID TABLET (FP) PO SCH (10:04)
[2017-12-27] MEDS: LIDOCAINE 5% TOPICAL PATCH TP SCH (10:04)
[2017-12-27] MEDS: NICOTINE 14 MG/24 HOURS TOPICAL PATCH TD SCH (10:04)
[2017-12-27] MEDS: IBUPROFEN 400 MG TABLET (FP) PO PRN ×2 (10:04→21:21)
[2017-12-27] MEDS: THIAMINE HCL 100 MG TABLET (FP) PO SCH (21:21)
[2017-12-27] MEDS: LIDOCAINE PATCH REMOVAL MC SCH (21:22)
[2017-12-27] MEDS: traZODone HCL 100 MG TABLET (FP) PO SCH (21:22)
[2017-12-28] MEDS: ACETAMINOPHEN 325 MG TABLET (FP) PO PRN ×2 (06:02→14:38)
[2017-12-28] MEDS: CYCLOBENZAPRINE HCL 10 MG TABLET (FP) PO PRN ×3 (06:03→21:26)
[2017-12-28] MEDS: PRENATAL VITAMINS W/ FOLIC ACID TABLET (FP) PO SCH (09:49)
[2017-12-28] MEDS: IBUPROFEN 400 MG TABLET (FP) PO PRN ×2 (09:49→21:26)
[2017-12-28] MEDS: NICOTINE 14 MG/24 HOURS TOPICAL PATCH TD SCH (09:50)
[2017-12-28] MEDS: LIDOCAINE 5% TOPICAL PATCH TP SCH (09:50)
[2017-12-28] MEDS: THIAMINE HCL 100 MG TABLET (FP) PO SCH (21:26)
[2017-12-28] MEDS: traZODone HCL 100 MG TABLET (FP) PO SCH (21:26)
[2017-12-28] MEDS: LIDOCAINE PATCH REMOVAL MC SCH (21:27)
[2017-12-29] MEDS: IBUPROFEN 400 MG TABLET (FP) PO PRN ×3 (06:25→20:55)
[2017-12-29] MEDS: CYCLOBENZAPRINE HCL 10 MG TABLET (FP) PO PRN ×3 (06:26→21:00)
[2017-12-29] MEDS: LIDOCAINE 5% TOPICAL PATCH TP SCH (09:43)
[2017-12-29] MEDS: PRENATAL VITAMINS W/ FOLIC ACID TABLET (FP) PO SCH (09:44)
[2017-12-29] MEDS: NICOTINE 14 MG/24 HOURS TOPICAL PATCH TD SCH (09:44)
[2017-12-29] MEDS: ACETAMINOPHEN 325 MG TABLET (FP) PO PRN (09:45)
--- NOTE | 2017-12-29 14:17 | PN ---
Psychiatric Progress Note Vital Signs: Vital Signs Period Temp Pulse Resp BP Sys/Ruiz Pulse Ox Last 24 Hr 98.1 F 80 18-20 134/72 Date of Session: 12/29/17 Chief Complaint:: Discharge Note HPI: Patient addressing Alcohol, Opoid and Cannabis Dependence comorbid with Nicotine Dependence , Depressive Disorder and Substance-Induced Sleep Disorder ROS: PPD+, Psoriasis, Stabismic amblyopia left eye Current Medications: Active Medications Generic Name Dose Route Start Last Admin Trade Name Freq PRN Reason Stop Dose Admin Acetaminophen 650 mg 12/06/17 15:04 12/29/17 09:45 Tylenol - PO 650 mg Q4H PRN Administration FEVER OR PAIN Al Hydroxide/Mg Hydroxide 30 ml 12/06/17 15:04 Mylanta Oral Suspension - PO Q6H PRN DYSPEPSIA Cyclobenzaprine HCl 10 mg 12/06/17 15:06 12/29/17 06:26 Flexeril - PO 10 mg TID PRN Administration MUSCLE SPASMS Diphenhydramine HCl 25 mg 12/18/17 22:34 Benadryl - PO Q6H PRN FOR ITCHING Eucalyptus/Menthol/Phenol/Sorbitol 1 each 12/06/17 15:04 Cepastat Lozenge - MM Q4H PRN SORE THROAT Guaifenesin 10 ml 12/06/17 15:04 Robitussin Dm - PO Q6H PRN COUGH Hydrocortisone 1 applic 12/18/17 22:35 Hytone 1% Cream - TP QID PRN FOR ITCHING Ibuprofen 400 mg 12/06/17 15:04 12/29/17 06:25 Motrin - PO 400 mg Q6H PRN Administration PAIN Lidocaine 1 patch 12/08/17 15:04 12/29/17 09:43 Lidoderm Patch - TP 1 patch DAILY MEGHANA Administration Loperamide HCl 4 mg 12/06/17 15:04 Imodium - PO Q6H PRN DIARRHEA Magnesium Citrate 300 ml 12/06/17 15:04 Citroma - PO Q48H PRN CONSTIPATION Magnesium Hydroxide 30 ml 12/06/17 15:04 Milk Of Magnesia - PO DAILY PRN CONSTIPATION Miscellaneous 1 each 12/08/17 22:00 12/28/17 21:27 Lidoderm Patch Removal MC 1 each DAILY@2200 MEGHANA Administration Nicotine 14 mg 12/07/17 10:00 12/29/17 09:44 Nicoderm Patch - TD Not Given DAILY MEGHANA Multivit/Folic Acid/Iron 1 tab 12/07/17 10:00 12/29/17 09:44 Vitamins ([facility]) - PO 1 tab DAILY MEGHANA Administration Pseudoephedrine/Triprolidine 1 combo 12/06/17 15:04 Actifed - PO TID PRN NASAL CONGESTION Thiamine HCl 100 mg 12/06/17 22:00 12/28/17 21:26 Vitamin B1 - PO 100 mg HS MEGHANA Administration Trazodone HCl 100 mg 12/06/17 22:00 12/28/17 21:26 Desyrel - PO 100 mg HS MEGHANA Administration Current Side Effect: No Lab tests ordered: Yes Lab tests reviewed: Yes Provider note:: Patient will complete this program on 12/30/17. He has met his treatment goals and will continue to address his issues in outpatient treatment at the [facility] in [place]. Told business writer that from his participation in this program, he has learned the importance of making meetings and get a sponsor. He responded well to Trazadone 100 mg po HS. Script for 30 days supply of medication will be electronically transmitted to [facility] at [address] [place] [address]. He is stable for discharge on 12/30/17 Total face to face time:: 35 Mental Status Exam - Mental Status Exam Alert and Oriented to: Time, Place, Person Cognitive Function: Fair Patient Appearance: Well Groomed Mood: Hopeful, Euthymic Affect: Appropriate Patient Behavior: Cooperative Speech Pattern: Clear Voice Loudness: Normal Thought Process: Intact, Goal Oriented Thought Disorder: Not Present Hallucinations: Denies Suicidal Ideation: Denies Homicidal Ideation: Denies Insight/Judgement: Fair Sleep: Fair Appetite: Good Muscle strength/Tone: Normal Gait/Station: Normal Psychiatric Treatment Plan - Problem List (1) Alcohol dependence Current Visit: Yes (2) Opioid dependence Current Visit: Yes (3) Cannabis dependence Current Visit: No (4) Nicotine dependence Current Visit: No Qualifiers: Nicotine product type: cigarettes Substance use status: in withdrawal Qualified Code(s): F17.213 - Nicotine dependence, cigarettes, with withdrawal (5) Depressive disorder Current Visit: No (6) MDD (major depressive disorder) Current Visit: No (7) Substance-induced sleep disorder Current Visit: Yes (8) Legally blind in left eye, as defined in [place] Current Visit: No (9) PPD positive Current Visit: No (10) Psoriasis Current Visit: No Comment: to leg and buttock (11) Strabismic amblyopia of left eye Current Visit: No
[2017-12-29] MEDS: THIAMINE HCL 100 MG TABLET (FP) PO SCH (21:00)
[2017-12-29] MEDS: traZODone HCL 100 MG TABLET (FP) PO SCH (21:00)
[2017-12-29] MEDS: LIDOCAINE PATCH REMOVAL MC SCH (22:16)
[2017-12-30] MEDS: IBUPROFEN 400 MG TABLET (FP) PO PRN (06:25)
[2017-12-30] MEDS: CYCLOBENZAPRINE HCL 10 MG TABLET (FP) PO PRN (06:25)
[2017-12-30 07:03] VITALS: BP 137/81; PULSE 92; TEMP 98
[2017-12-30] MEDS: PRENATAL VITAMINS W/ FOLIC ACID TABLET (FP) PO SCH (09:33)
[2017-12-30] MEDS: NICOTINE 14 MG/24 HOURS TOPICAL PATCH TD SCH (09:34)
[2017-12-30] MEDS: LIDOCAINE 5% TOPICAL PATCH TP SCH (09:34)
== END 2017-12-30 09:40 | disposition home or self-care (01) | DRG 772 ==
LOC: YASAS 14:15 → Y3W 14:16
PROVIDERS: ADMIT Psychiatry & Neurology Psychiatry; ATTEND Psychiatry & Neurology Psychiatry
PROC: HZ42ZZZ Group Counseling for Substance Abuse Treatment, Cognitive-Behavioral (ICD-10-PCS; principal; 2017-12-06)
DX: F11.20 Opioid dependence, uncomplicated (principal); F10.20 Alcohol dependence, uncomplicated; F12.20 Cannabis dependence, uncomplicated; F17.210 Nicotine dependence, cigarettes, uncomplicated; F33.9 Major depressive disorder, recurrent, unspecified; F34.1 Dysthymic disorder; F19.282 Other psychoactive substance dependence with psychoactive substance-induced sleep disorder; H53.032 Strabismic amblyopia, left eye; H54.8 Legal blindness, as defined in USA; L40.9 Psoriasis, unspecified; R76.11 Nonspecific reaction to tuberculin skin test without active tuberculosis

== ENCOUNTER 2018-02-26 09:07 | Inpatient (IN) | payer OTHER ==
[2018-02-26 09:38] VITALS: BMI 26.9
--- NOTE | 2018-02-26 11:12 | HP ---
COWS - Scale Resting Pulse: 0= [place] 80 or Below Sweatin= Chills/Flushing Restless Observation: 1= Difficult to Sit Still Pupil Size: 0= Normal to Room Light Bone or Joint Aches: 1= Mild Discomfort Runny Nose/ Eye Tearin= Runny Nose/Eyes GI Upset > 30mins: 2= Nausea/Diarrhea Tremor Observation: 2= Slight Tremor Visible Yawning Observation: 2= >3x During Session Anxiety or Irritability: 1=Feels Anxious/Irritable Goose Flesh Skin: 0=Smooth Skin COWS Score: 12 CIWA Score - CIWA Score Nausea/Vomitin Muscle Tremors: 2 Anxiety: 4-Mod. Anxious/Guarded Agitation: 1-Slight > Activity Paroxysmal Sweats: No Perspiration Orientation: 0-Oriented Tacttile Disturbances: 1-Very Mild Itch/Numbness Auditory Disturbances: 2-Mild Harshness/Frighten Visual Disturbances: 1-Very Mild Sensitivity Headache: 1-Very Mild CIWA-Ar Total Score: 14 Admission ROS BHS - HPI Chief Complaint: I want to stop everything, I need help, when I start craving I just go get it - I want to stop, I need detox. Allergies/Adverse Reactions: Allergies Allergy/AdvReac Type Severity Reaction Status Date / Time No Known Allergies Allergy Verified 02/26/18 10:46 History of Present Illness: 62 yo gentleman here for detox from alcohol and heroin - has lost weight, no seizures but does have black outs. This is one of multiple admissions for detox , rehab - last time here 12/01/17 for detox and rehab. Lives in long term, seeking a senior citizen apartment. Exam Limitations: Clinical Condition - Ebola screening Have you traveled outside of the country in the last 21 days: No (N) Have you had contact with anyone from an Ebola affected area: No Have you been sick,other than usual withdrawal symptoms: No Do you have a fever: No - Review of Systems Constitutional: Loss of Appetite, Malaise, Changes in sleep, Weakness, Weight Stable EENT: reports: Blurred Vision, Nose Congestion Respiratory: reports: No Symptoms reported Cardiac: reports: No Symptoms Reported GI: reports: Diarrhea, Poor Appetite, Poor Fluid Intake, Indigestion : reports: Frequency Musculoskeletal: reports: Back Pain, Joint Pain, Muscle Pain Integumentary: reports: Dryness Neuro: reports: Headache Endocrine: reports: No Symptoms Reported Hematology: reports: No Symptoms Reported Psychiatric: reports: Judgement Intact, Mood/Affect Appropiate, Anxious Other Systems: Reviewed and Negative Patient History - Patient Medical History Hx Anemia: No Hx Asthma: No Hx Chronic Obstructive Pulmonary Disease (COPD): No Hx Cancer: No Hx Cardiac Disorders: No Hx Congestive Heart Failure: No Hx Hypertension: No Hx Hypercholesterolemia: No Hx Pacemaker: No HX Cerebrovascular Accident: No Hx Seizures: No Hx Dementia: No Hx Diabetes: No Hx Gastrointestinal Disorders: No Hx Liver Disease: No Hx Genitourinary Disorders: No Hx Sexually Transmitted Disorders: No Hx Renal Disease (ESRD): No Hx Thyroid Disease: No Hx Human Immunodeficiency Virus (HIV): No (negative) Hx Hepatitis C: No Hx Depression: Yes (on meds, hospitalized once several years ago) Hx Suicide Attempt: No Hx Bipolar Disorder: No Hx Schizophrenia: No Other Medical History: osteoarthritis, right hip, hands - Patient Surgical History Past Surgical History: Yes Hx Neurologic Surgery: No Hx Cataract Extraction: No Hx Cardiac Surgery: No Hx Lung Surgery: No Hx Breast Surgery: No Hx Breast Biopsy: No Hx Abdominal Surgery: No Hx Appendectomy: No Hx Cholecystectomy: No Hx Genitourinary Surgery: No Hx Section: No Hx Orthopedic Surgery: No Other Surgical History: L eye surgery at age 7 yrs old. hx Lazy eye Anesthesia Reaction: No - PPD History Previous Implant?: Yes Documented Results: Positive w/proof Implanted On Prior [facility] Admission?: No Date: 09/30/17 (CXR done) PPD to be Administered?: No - Reproductive History Patient is a Female of Child Bearing Age (11 -55 yrs old): No (male) - Smoking Cessation Smoking history: Current every day smoker Have you smoked in the past 12 months: Yes Aproximately how many cigarettes per day: 10 Cigars Per Day: 0 Hx Chewing Tobacco Use: No Initiated information on smoking cessation: Yes 'Breaking Loose' booklet given: 02/26/18 (give on floor) - Substance & Tx. History Hx Alcohol Use: Yes Hx Substance Use: Yes Substance Use Type: Alcohol, Heroin Hx Substance Use Treatment: Yes (detox, rehab, methadone 110mg in past 2016) - Substances Abused Heroin Route: Inhalation Frequency: Daily Amount used: 4-5 bags Age of first use: 24 Date of Last Use: 02/25/18 Marijuana/Hashish Route: Smoking Frequency: 1-3 times last 30 days Amount used: 1 blunt Age of first use: 12 Date of Last Use: 02/09/18 alcohol Route: Oral Frequency: Daily Amount used: five cans of 25 oz beer Age of first use: 12 Date of Last Use: 02/26/18 Family Disease History - Family Disease History Family Disease History: Heart Disease: Mother (HTN/,), Brother (DRUG, ALCOHOL,PR,HEMODIALYSIS), Other: Father (, ? no contac), Mother, Brother , Son (two sons, adults, one with leukemia) Admission Physical Exam [facility] - Vital Signs Vital Signs: Vital Signs - 24 hr 02/26/18 09:37 Temperature 97.7 F Pulse Rate 75 Respiratory 18 Rate Blood Pressure 151/90 - Physical General Appearance: Yes: Nourished, Appropriately Dressed, Moderate Distress, Thin, Tremorous, Anxious HEENTM: Yes: EOMI, Hearing grossly Normal, Normocephalic, Normal Voice, Pharynx Normal, Muffled/Hoarse Voice Respiratory: Yes: Normal Breath Sounds, No Respiratory Distress Neck: Yes: No masses,lesions,Nodules, Supple Breast: Yes: Breast Exam Deferred Cardiology: Yes: Regular Rhythm, Regular Rate Genitourinary: Yes: Frequency Back: Yes: Decreased Range of Motion Musculoskeletal: Yes: full range of Motion, Gait Steady, Back pain, Joint Stiffness, Muscle Pain Extremities: Yes: Normal Inspection, Normal Range of Motion, Non-Tender Neurological: Yes: Fully Oriented, Alert, Motor Strength 5/5, Normal Mood/Affect , Normal Response Integumentary: Yes: Normal Color, Dry, Warm Lymphatic: Yes: Within Normal Limits - Diagnostic (1) Opioid dependence with withdrawal Current Visit: Yes Status: Chronic (2) Alcohol dependence with uncomplicated withdrawal Current Visit: Yes Status: Chronic (3) Hip pain, right Current Visit: Yes Status: Chronic (4) Strabismic amblyopia of left eye Current Visit: Yes Status: Chronic (5) Nicotine dependence Current Visit: Yes Status: Chronic Qualifiers: Nicotine product type: cigarettes Substance use status: in withdrawal Qualified Code(s): F17.213 - Nicotine dependence, cigarettes, with withdrawal (6) Legally blind in left eye, as defined in [place] Current Visit: Yes Status: Chronic (7) Use of cane as ambulatory aid Current Visit: Yes Status: Chronic Comment: right hip (8) PPD positive Current Visit: Yes Status: Chronic Comment: never took INH, cxr 09/30/17 (9) Weight loss Current Visit: Yes Status: Chronic (10) Osteoarthritis Current Visit: Yes Status: Acute Qualifiers: Osteoarthritis location: multiple joints Osteoarthritis type: primary Qualified Code(s): M15.0 - Primary generalized (osteo)arthritis Cleared for Admission [facility] - Detox or Rehab [facility] Level of Care: Medically Managed Detox Regimen/Protocol: Methadone/Librium [facility] Breath Alcohol Content Breath Alcohol Content: 0 Urine Drug Screen - Results Drug Screen Negative: No Urine Drug Screen Results: TCA-Tricyclic Antidepress, OXY-Oxycodone
[2018-02-26] MEDS ORDERED: chlordiazePOXIDE HCL 25 MG CAPSULE PO PRN (11:24)
[2018-02-26] MEDS ORDERED: MAGNESIUM HYDROX 2400MG/30ML ORAL SUSPENSION 30 ML CUP PO PRN (11:24)
[2018-02-26] MEDS ORDERED: ACETAMINOPHEN 325 MG TABLET (FP) PO PRN (11:24)
[2018-02-26] MEDS ORDERED: LOPERAMIDE HCL 2 MG CAPSULE PO PRN (11:24)
[2018-02-26] MEDS ORDERED: hydrOXYzine PAMOATE 25 MG CAPSULE (FP) PO PRN (11:24)
[2018-02-26] MEDS ORDERED: MENTHOL/PHENOL 1 EACH UD MM PRN (11:24)
[2018-02-26] MEDS ORDERED: MAG HYDROX/AL HYDROX/SIMETH 30 ML UNIT-DOSE CUP PO PRN (11:24)
[2018-02-26] MEDS ORDERED: guaiFENesin/D-METHORPHAN HB 10 ML UNIT-DOSE CUPS PO PRN (11:24)
[2018-02-26] MEDS ORDERED: MAGNESIUM CITRATE 300 ML BOTTLE PO PRN (11:24)
[2018-02-26] MEDS ORDERED: P-EPHED 60MG/TRIPROLIDI 2.5MG TABLET PO PRN (11:24)
[2018-02-26] MEDS ORDERED: chlordiazePOXIDE HCL 25 MG CAPSULE PO ONE (12:30)
[2018-02-26] MEDS ORDERED: METHADONE HCL 10 MG TABLET (FOR DETOX USE ONLY) PO ONE ×2 (12:30→23:00)
[2018-02-26] MEDS: NICOTINE 21 MG/24 HOURS TOPICAL PATCH TD SCH (13:13)
[2018-02-26 17:53] LABS: URINE APPEARANCE CLEAR; URINE BILIRUBIN NEGATIVE (<2.0 mg/dL); URINE BLOOD NEGATIVE (NEGATIVE); URINE COLOR LTYELLOW; URINE GLUCOSE (UA) NEGATIVE (NEGATIVE); URINE KETONE NEGATIVE (NEGATIVE); URINE LEUK ESTERASE NEGATIVE (NEGATIVE); URINE NITRITE NEGATIVE (NEGATIVE); URINE PROTEIN NEGATIVE (NEGATIVE); URINE UROBILINOGEN NEGATIVE mg/dL (0.2-1.0)
[2018-02-26] MEDS: chlordiazePOXIDE HCL 25 MG CAPSULE PO SCH ×2 (18:09→22:24)
[2018-02-26] MEDS ORDERED: NAPROXEN 375 MG TABLET (FP) PO SCH (22:00)
[2018-02-26] MEDS ORDERED: MELATONIN 5 MG TABLETS PO PRN (22:00)
[2018-02-26] MEDS: METHYL SALICYLATE/MENTHOL OINT 30 GM TUBE TP SCH (22:24)
[2018-02-26] MEDS: THIAMINE HCL 100 MG TABLET (FP) PO SCH (22:25)
[2018-02-27] MEDS: chlordiazePOXIDE HCL 25 MG CAPSULE PO SCH ×4 (05:48→22:03)
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
[2018-02-27] MEDS ORDERED: LIDOCAINE 5% TOPICAL PATCH TP ONE (08:51)
--- NOTE | 2018-02-27 08:56 | PN ---
[facility] CIWA - CIWA Score Nausea/Vomitin-No Nausea/No Vomiting Muscle Tremors: 4-Moderate,w/Arms Extend Anxiety: 3 Agitation: 3 Paroxysmal Sweats: 3 Orientation: 0-Oriented Tacttile Disturbances: 0-None Auditory Disturbances: 0-None Visual Disturbances: 0-None Headache: 0-None Present CIWA-Ar Total Score: 13 BHS COWS - Scale Resting Pulse: 0= [place] 80 or Below Sweatin= Chills/Flushing Restless Observation: 1= Difficult to Sit Still Pupil Size: 0= Normal to Room Light Bone or Joint Aches: 2= Severe Diffuse Aches Runny Nose/ Eye Tearin= Runny Nose/Eyes GI Upset > 30mins: 1= Stomach Cramp Tremor Observation of Outstretched Hands: 2= Slight Tremor Visible Yawning Observation: 2= >3x During Session Anxiety or Irritability: 2=Irritable/Anxious Goose Flesh Skin: 0=Smooth Skin COWS Score: 13 [facility] Progress Note (SOAP) Subjective: body aches sweats shakes interrupted sleep right hip pain Objective: 02/27/18 08:55 Vital Signs Temperature 97.7 F 02/27/18 06:19 Pulse Rate 64 02/27/18 06:19 Respiratory Rate 18 02/27/18 06:19 Blood Pressure 129/75 02/27/18 06:19 O2 Sat by Pulse Oximetry (%) Laboratory Tests 02/26/18 Unknown Urine Color Ltyellow Urine Appearance Clear Urine pH 7.0 Ur Specific [place] 1.013 Urine Protein Negative Urine Glucose (UA) Negative Urine Ketones Negative Urine Blood Negative Urine Nitrite Negative Urine Bilirubin Negative Urine Urobilinogen Negative Ur Leukocyte Esterase Negative labs pending aaox3 ambulating no acute distress Assessment: 02/27/18 08:55 withdrawal sx Plan: continue detox increase fluids lidocaine patch flexiril 10mg prn naproxen 500mg bid analgesic balm prn
[2018-02-27] MEDS ORDERED: METHADONE HCL 10 MG TABLET (FOR DETOX USE ONLY) PO SCH (10:00)
[2018-02-27] MEDS: METHYL SALICYLATE/MENTHOL OINT 30 GM TUBE TP SCH ×2 (10:23→22:03)
[2018-02-27] MEDS: NAPROXEN 500 MG TABLET (FP) PO SCH ×2 (10:24→22:03)
[2018-02-27] MEDS: PRENATAL VITAMINS W/ FOLIC ACID TABLET (FP) PO SCH (10:24)
[2018-02-27] MEDS: LIDOCAINE 5% TOPICAL PATCH TP SCH (10:25)
[2018-02-27] MEDS: NICOTINE 21 MG/24 HOURS TOPICAL PATCH TD SCH (10:25)
[2018-02-27 11:00] LABS: HEMOGLOBIN 12.6 GM/dL (11.7-16.9); MCH 26.3 pg (25.7-33.7); MCHC 32.4 g/dl (32.0-35.9); MEAN CELL VOLUME 81.2 fl (80-96); MEAN PLT VOLUME 9.4 fl (7.5-11.1); PLATELET COUNT 271 K/MM3 (134-434); RBC 4.81 M/mm3 (4.00-5.60); RDW 15.8 % (11.9-15.9); WHITE BLOOD COUNT 6.1 K/mm3 (4.0-10.0)
[2018-02-27 11:09] LABS: CHLORIDE 107 mmol/L (98-107); POTASSIUM 3.8 mmol/L (3.5-5.1); SODIUM 139 mmol/L (136-145)
[2018-02-27 11:15] LABS: ALBUMIN 3.3 g/dl (3.4-5.0); ALK PHOS 100 U/L (45-117); ANION GAP 8 (8-16); BILIRUBIN,TOTAL 0.4 mg/dL (0.2-1.0); BLOOD UREA NITROGEN 15 mg/dL (7-18); CO2 24 mmol/L (21-32); CREATININE 0.9 mg/dL (0.7-1.3); GLUCOSE,RANDOM 156 mg/dL (74-106); SGOT/AST 15 U/L (15-37); SGPT/ALT 18 U/L (12-78); TOT PROT 6.6 g/dl (6.4-8.2)
[2018-02-27 11:40] LABS: CALCIUM 8.6 mg/dL (8.5-10.1)
[2018-02-27] MEDS: CYCLOBENZAPRINE HCL 10 MG TABLET (FP) PO PRN ×2 (14:17→22:03)
--- NOTE | 2018-02-27 16:24 | EKG ---
Test Reason : Blood Pressure : / mmHG Vent. Rate : 060 BPM Atrial Rate : 060 BPM P-R Int : 134 ms QRS Dur : 086 ms QT Int : 418 ms P-R-T Axes : 070 074 066 degrees QTc Int : 418 ms NORMAL SINUS RHYTHM NORMAL ECG WHEN COMPARED WITH ECG OF 01-DEC-2017 22:34, CRITERIA FOR SEPTAL INFARCT ARE NO LONGER PRESENT NON-SPECIFIC CHANGE IN ST SEGMENT IN ANTERIOR LEADS QT HAS SHORTENED Confirmed by MD RENAE, LENIN ([id number]) on 02/27/2018 4:24:13 PM Referred By: Confirmed By:LENIN MACDONALD MD
[2018-02-27] MEDS: THIAMINE HCL 100 MG TABLET (FP) PO SCH (22:03)
[2018-02-27] MEDS: LIDOCAINE PATCH REMOVAL MC SCH (22:03)
[2018-02-27] MEDS: traZODone HCL 100 MG TABLET (FP) PO SCH (22:04)
[2018-02-28] MEDS: chlordiazePOXIDE HCL 25 MG CAPSULE PO SCH ×2 (05:31→10:16)
[2018-02-28] MEDS: PRENATAL VITAMINS W/ FOLIC ACID TABLET (FP) PO SCH (10:16)
[2018-02-28] MEDS: NAPROXEN 500 MG TABLET (FP) PO SCH ×2 (10:16→22:09)
[2018-02-28] MEDS: METHYL SALICYLATE/MENTHOL OINT 30 GM TUBE TP SCH ×2 (10:16→22:07)
[2018-02-28] MEDS: METHADONE HCL 5 MG TABLET (FOR DETOX USE ONLY) PO SCH (10:16)
[2018-02-28] MEDS: CYCLOBENZAPRINE HCL 10 MG TABLET (FP) PO PRN (10:16)
[2018-02-28] MEDS: NICOTINE 21 MG/24 HOURS TOPICAL PATCH TD SCH (10:17)
[2018-02-28] MEDS: LIDOCAINE 5% TOPICAL PATCH TP SCH (10:17)
--- NOTE | 2018-02-28 16:21 | PN ---
S CIWA - CIWA Score Nausea/Vomitin-No Nausea/No Vomiting Muscle Tremors: None Anxiety: 4-Mod. Anxious/Guarded Agitation: 2 Paroxysmal Sweats: No Perspiration Orientation: 0-Oriented Tacttile Disturbances: 3-Moderate Itch/Numb/Burn Auditory Disturbances: 3-Moderate Harsh/Frighten Visual Disturbances: 2-Mild Sensitivity Headache: 0-None Present CIWA-Ar Total Score: 14 BHS COWS - Scale Resting Pulse: 0= DC 80 or Below Sweatin= Chills/Flushing Restless Observation: 1= Difficult to Sit Still Pupil Size: 0= Normal to Room Light Bone or Joint Aches: 2= Severe Diffuse Aches Runny Nose/ Eye Tearin= None GI Upset > 30mins: 2= Nausea/Diarrhea Tremor Observation of Outstretched Hands: 0= None Yawning Observation: 2= >3x During Session Anxiety or Irritability: 2=Irritable/Anxious Goose Flesh Skin: 3=Piloerection COWS Score: 13 S Progress Note (SOAP) Subjective: Fatigue, Body Aches, Anxious, Diarrhea. Objective: PATIENT A & O X 3, OBSERVED AMBULATING ON UNIT. NO ACUTE DISTRESS. 02/28/18 16:20 Vital Signs Temperature 96.5 F L 02/28/18 13:24 Pulse Rate 66 02/28/18 13:24 Respiratory Rate 18 02/28/18 13:24 Blood Pressure 123/70 02/28/18 13:24 O2 Sat by Pulse Oximetry (%) Laboratory Tests 02/26/18 02/27/18 02/27/18 Unknown 07:40 07:40 WBC 6.1 RBC 4.81 Hgb 12.6 Hct 39.0 MCV 81.2 MCH 26.3 MCHC 32.4 RDW 15.8 Plt Count 271 MPV 9.4 Sodium 139 Potassium 3.8 Chloride 107 Carbon Dioxide 24 Anion Gap 8 BUN 15 D Creatinine 0.9 Creat Clearance w eGFR > 60 Random Glucose 156 H Calcium 8.6 Total Bilirubin 0.4 AST 15 ALT 18 Alkaline Phosphatase 100 Total Protein 6.6 Albumin 3.3 L Urine Color Ltyellow Urine Appearance Clear Urine pH 7.0 Ur Specific [place] 1.013 Urine Protein Negative Urine Glucose (UA) Negative Urine Ketones Negative Urine Blood Negative Urine Nitrite Negative Urine Bilirubin Negative Urine Urobilinogen Negative Ur Leukocyte Esterase Negative RPR Titer 02/27/18 07:40 WBC RBC Hgb Hct MCV MCH MCHC RDW Plt Count MPV Sodium Potassium Chloride Carbon Dioxide Anion Gap BUN Creatinine Creat Clearance w eGFR Random Glucose Calcium Total Bilirubin AST ALT Alkaline Phosphatase Total Protein Albumin Urine Color Urine Appearance Urine pH Ur Specific [place] Urine Protein Urine Glucose (UA) Urine Ketones Urine Blood Urine Nitrite Urine Bilirubin Urine Urobilinogen Ur Leukocyte Esterase RPR Titer Nonreactive labs noted. Assessment: 02/28/18 16:20 WITHDRAWAL SYMPTOMS. Plan: CONTINUE DETOX. INCREASE DAILY PO FLUID INTAKE. BGM ACBK FOR ELEVATED ADMISSION RANDOM GLUCOSE LEVEL.
[2018-02-28] MEDS: chlordiazePOXIDE 5 MG CAPSULE PO SCH ×2 (17:49→22:09)
[2018-02-28] MEDS: LIDOCAINE PATCH REMOVAL MC SCH (22:06)
[2018-02-28] MEDS: THIAMINE HCL 100 MG TABLET (FP) PO SCH (22:07)
[2018-02-28] MEDS: traZODone HCL 100 MG TABLET (FP) PO SCH (22:08)
[2018-03-01] MEDS: chlordiazePOXIDE 5 MG CAPSULE PO SCH ×2 (05:18→10:13)
[2018-03-01] MEDS: NAPROXEN 500 MG TABLET (FP) PO SCH ×2 (10:13→22:20)
[2018-03-01] MEDS: METHADONE HCL 5 MG TABLET (FOR DETOX USE ONLY) PO SCH (10:13)
[2018-03-01] MEDS: PRENATAL VITAMINS W/ FOLIC ACID TABLET (FP) PO SCH (10:13)
[2018-03-01] MEDS: NICOTINE 21 MG/24 HOURS TOPICAL PATCH TD SCH (10:14)
[2018-03-01] MEDS: METHYL SALICYLATE/MENTHOL OINT 30 GM TUBE TP SCH ×2 (10:14→23:15)
[2018-03-01] MEDS: LIDOCAINE 5% TOPICAL PATCH TP SCH (10:14)
--- NOTE | 2018-03-01 12:33 | PN ---
S Progress Note (SOAP) Subjective: SLIGHT ANXIETY,TREMORS,SWEATS. REPORTS FEELS BETTER WITH DETOX MED PROTOCOL. Objective: 03/01/18 12:32 Vital Signs Temperature 95.6 F L 03/01/18 09:11 Pulse Rate 65 03/01/18 09:11 Respiratory Rate 18 03/01/18 09:11 Blood Pressure 148/77 03/01/18 09:11 O2 Sat by Pulse Oximetry (%) Laboratory Last Values WBC 6.1 K/mm3 (4.0-10.0) 02/27/18 07:40 RBC 4.81 M/mm3 (4.00-5.60) 02/27/18 07:40 Hgb 12.6 GM/dL (11.7-16.9) 02/27/18 07:40 Hct 39.0 % (35.4-49) 02/27/18 07:40 MCV 81.2 fl (80-96) 02/27/18 07:40 MCH 26.3 pg (25.7-33.7) 02/27/18 07:40 MCHC 32.4 g/dl (32.0-35.9) 02/27/18 07:40 RDW 15.8 % (11.9-15.9) 02/27/18 07:40 Plt Count 271 K/MM3 (134-434) 02/27/18 07:40 MPV 9.4 fl (7.5-11.1) 02/27/18 07:40 Sodium 139 mmol/L (136-145) 02/27/18 07:40 Potassium 3.8 mmol/L (3.5-5.1) 02/27/18 07:40 Chloride 107 mmol/L (98-107) 02/27/18 07:40 Carbon Dioxide 24 mmol/L (21-32) 02/27/18 07:40 Anion Gap 8 (8-16) 02/27/18 07:40 BUN 15 mg/dL (7-18) D 02/27/18 07:40 Creatinine 0.9 mg/dL (0.7-1.3) 02/27/18 07:40 Creat Clearance w eGFR > 60 (>60) 02/27/18 07:40 Random Glucose 156 mg/dL (74-106) H 02/27/18 07:40 Calcium 8.6 mg/dL (8.5-10.1) 02/27/18 07:40 Total Bilirubin 0.4 mg/dL (0.2-1.0) 02/27/18 07:40 AST 15 U/L (15-37) 02/27/18 07:40 ALT 18 U/L (12-78) 02/27/18 07:40 Alkaline Phosphatase 100 U/L (45-117) 02/27/18 07:40 Total Protein 6.6 g/dl (6.4-8.2) 02/27/18 07:40 Albumin 3.3 g/dl (3.4-5.0) L 02/27/18 07:40 Urine Color Ltyellow 02/26/18 Unknown Urine Appearance Clear 02/26/18 Unknown Urine pH 7.0 (5.0-8.0) 02/26/18 Unknown Ur Specific [place] 1.013 (1.001-1.035) 02/26/18 Unknown Urine Protein Negative (NEGATIVE) 02/26/18 Unknown Urine Glucose (UA) Negative (NEGATIVE) 02/26/18 Unknown Urine Ketones Negative (NEGATIVE) 02/26/18 Unknown Urine Blood Negative (NEGATIVE) 02/26/18 Unknown Urine Nitrite Negative (NEGATIVE) 02/26/18 Unknown Urine Bilirubin Negative (<2.0 mg/dL) 02/26/18 Unknown Urine Urobilinogen Negative mg/dL (0.2-1.0) 02/26/18 Unknown Ur Leukocyte Esterase Negative (NEGATIVE) 02/26/18 Unknown RPR Titer Nonreactive (NONREACTIVE) 02/27/18 07:40 Assessment: 03/01/18 12:33 WITHDRAWAL SX Plan: CONTINUE DETOX
[2018-03-01] MEDS: chlordiazePOXIDE HCL 10 MG CAPSULE PO SCH ×2 (17:06→22:20)
[2018-03-01] MEDS: traZODone HCL 100 MG TABLET (FP) PO SCH (22:20)
[2018-03-01] MEDS: CYCLOBENZAPRINE HCL 10 MG TABLET (FP) PO PRN (22:20)
[2018-03-01] MEDS: THIAMINE HCL 100 MG TABLET (FP) PO SCH (22:20)
[2018-03-01] MEDS: LIDOCAINE PATCH REMOVAL MC SCH (22:22)
[2018-03-02] MEDS: chlordiazePOXIDE HCL 10 MG CAPSULE PO SCH ×2 (04:54→10:39)
[2018-03-02] MEDS ORDERED: METHADONE HCL 10 MG TABLET (FOR DETOX USE ONLY) PO SCH (10:00)
[2018-03-02] MEDS: PRENATAL VITAMINS W/ FOLIC ACID TABLET (FP) PO SCH (10:39)
[2018-03-02] MEDS: NAPROXEN 500 MG TABLET (FP) PO SCH (10:39)
[2018-03-02] MEDS: NICOTINE 21 MG/24 HOURS TOPICAL PATCH TD SCH (10:39)
[2018-03-02] MEDS: METHYL SALICYLATE/MENTHOL OINT 30 GM TUBE TP SCH (10:39)
[2018-03-02] MEDS: LIDOCAINE 5% TOPICAL PATCH TP SCH (10:39)
--- NOTE | 2018-03-02 12:38 | PN ---
[facility] Progress Note (SOAP) Subjective: DECREASED ANXIETY,SWEATS. ALERT O X 3. OOB WITH STEADY GAIT. Objective: 03/02/18 12:37 Vital Signs Temperature 97.8 F 03/02/18 09:18 Pulse Rate 75 03/02/18 09:18 Respiratory Rate 18 03/02/18 09:18 Blood Pressure 119/70 03/02/18 09:18 O2 Sat by Pulse Oximetry (%) Laboratory Last Values WBC 6.1 K/mm3 (4.0-10.0) 02/27/18 07:40 RBC 4.81 M/mm3 (4.00-5.60) 02/27/18 07:40 Hgb 12.6 GM/dL (11.7-16.9) 02/27/18 07:40 Hct 39.0 % (35.4-49) 02/27/18 07:40 MCV 81.2 fl (80-96) 02/27/18 07:40 MCH 26.3 pg (25.7-33.7) 02/27/18 07:40 MCHC 32.4 g/dl (32.0-35.9) 02/27/18 07:40 RDW 15.8 % (11.9-15.9) 02/27/18 07:40 Plt Count 271 K/MM3 (134-434) 02/27/18 07:40 MPV 9.4 fl (7.5-11.1) 02/27/18 07:40 Sodium 139 mmol/L (136-145) 02/27/18 07:40 Potassium 3.8 mmol/L (3.5-5.1) 02/27/18 07:40 Chloride 107 mmol/L (98-107) 02/27/18 07:40 Carbon Dioxide 24 mmol/L (21-32) 02/27/18 07:40 Anion Gap 8 (8-16) 02/27/18 07:40 BUN 15 mg/dL (7-18) D 02/27/18 07:40 Creatinine 0.9 mg/dL (0.7-1.3) 02/27/18 07:40 Creat Clearance w eGFR > 60 (>60) 02/27/18 07:40 Random Glucose 156 mg/dL (74-106) H 02/27/18 07:40 Calcium 8.6 mg/dL (8.5-10.1) 02/27/18 07:40 Total Bilirubin 0.4 mg/dL (0.2-1.0) 02/27/18 07:40 AST 15 U/L (15-37) 02/27/18 07:40 ALT 18 U/L (12-78) 02/27/18 07:40 Alkaline Phosphatase 100 U/L (45-117) 02/27/18 07:40 Total Protein 6.6 g/dl (6.4-8.2) 02/27/18 07:40 Albumin 3.3 g/dl (3.4-5.0) L 02/27/18 07:40 Urine Color Ltyellow 02/26/18 Unknown Urine Appearance Clear 02/26/18 Unknown Urine pH 7.0 (5.0-8.0) 02/26/18 Unknown Ur Specific [place] 1.013 (1.001-1.035) 02/26/18 Unknown Urine Protein Negative (NEGATIVE) 02/26/18 Unknown Urine Glucose (UA) Negative (NEGATIVE) 02/26/18 Unknown Urine Ketones Negative (NEGATIVE) 02/26/18 Unknown Urine Blood Negative (NEGATIVE) 02/26/18 Unknown Urine Nitrite Negative (NEGATIVE) 02/26/18 Unknown Urine Bilirubin Negative (<2.0 mg/dL) 02/26/18 Unknown Urine Urobilinogen Negative mg/dL (0.2-1.0) 02/26/18 Unknown Ur Leukocyte Esterase Negative (NEGATIVE) 02/26/18 Unknown RPR Titer Nonreactive (NONREACTIVE) 02/27/18 07:40 Assessment: 03/02/18 12:38 DECREASED W/S Plan: CONTINUE DETOX
[2018-03-02 13:54] VITALS: BP 140/79; PULSE 90; TEMP 98.6
[2018-03-03] MEDS ORDERED: METHADONE HCL 5 MG TABLET (FOR DETOX USE ONLY) PO SCH (06:00)
== END 2018-03-02 17:39 | disposition other institution (70) | DRG 773 ==
LOC: YASAS 09:07 → Y3N 11:51
PROVIDERS: ADMIT Internal Medicine; ATTEND Internal Medicine
PROC: HZ2ZZZZ Detoxification Services for Substance Abuse Treatment (ICD-10-PCS; principal; 2018-02-26)
DX: F11.23 Opioid dependence with withdrawal (principal); F10.230 Alcohol dependence with withdrawal, uncomplicated; F12.20 Cannabis dependence, uncomplicated; F17.210 Nicotine dependence, cigarettes, uncomplicated; F19.24 Other psychoactive substance dependence with psychoactive substance-induced mood disorder; F19.282 Other psychoactive substance dependence with psychoactive substance-induced sleep disorder; F32.9 Major depressive disorder, single episode, unspecified; M15.0 Primary generalized (osteo)arthritis; M25.551 Pain in right hip; H54.8 Legal blindness, as defined in USA; R76.11 Nonspecific reaction to tuberculin skin test without active tuberculosis; R63.4 Abnormal weight loss; Z68.26 Body mass index [BMI] 26.0-26.9, adult; H53.032 Strabismic amblyopia, left eye; R26.89 Other abnormalities of gait and mobility; Z99.89 Dependence on other enabling machines and devices
CPT/HCPCS: 36415; 80053; 81003; 85027; 86593; 93005; 93010

== ENCOUNTER 2018-03-02 17:47 | Inpatient (IN) | payer OTHER ==
[2018-03-02] MEDS ORDERED: MAGNESIUM HYDROX 2400MG/30ML ORAL SUSPENSION 30 ML CUP PO PRN (18:27)
[2018-03-02] MEDS ORDERED: hydrOXYzine PAMOATE 50 MG CAPSULE (FP) PO PRN (18:27)
[2018-03-02] MEDS ORDERED: NICOTINE POLACRILEX 2 MG GUM BUC PRN (18:27)
[2018-03-02] MEDS ORDERED: MAG HYDROX/AL HYDROX/SIMETH 30 ML UNIT-DOSE CUP PO PRN (18:27)
[2018-03-02] MEDS ORDERED: IBUPROFEN 400 MG TABLET (FP) PO PRN (18:27)
[2018-03-02] MEDS ORDERED: MAGNESIUM CITRATE 300 ML BOTTLE PO PRN (18:27)
[2018-03-02] MEDS ORDERED: MENTHOL/PHENOL 1 EACH UD MM PRN (18:27)
[2018-03-02] MEDS ORDERED: guaiFENesin/D-METHORPHAN HB 10 ML UNIT-DOSE CUPS PO PRN (18:27)
[2018-03-02] MEDS ORDERED: LOPERAMIDE HCL 2 MG CAPSULE PO PRN (18:27)
--- NOTE | 2018-03-02 18:50 | HP ---
[facility] Rehab Assess/Revision - Admission History Admitted to Rehab from: [facility] Date of Admission to Rehab: 03/02/18 - Findings Detox History & Physical reviewed: Yes Concur with findings: Yes Comments/Additional Findings: ADMIT TO REHAB Inpatient Rehab Admission - Initial Determination Are CD services needed?: Yes Free of communicable disease: Yes Not in need of hospitalization: Yes - Rehab Admission Criteria Previous failed treatment: Yes Poor recovery environment: Yes Comorbidities: Yes Lacks judgement: Yes Patient is meeting Inpatient Rehab admission criteria:: Yes
--- NOTE | 2018-03-02 20:58 | PN ---
[facility] Progress Note Note: psychiatrist material controller note: was called to place order for trazodone 100 mg po hs, reviewed [facility] medical records, psychiatric consults are appreciated , patient was seen by on 02/27/18 while at [facility] and was on trazodone, will continue the same management, psychiatric evaluation in am.
[2018-03-02] MEDS: THIAMINE HCL 100 MG TABLET (FP) PO SCH (21:47)
[2018-03-02] MEDS: NAPROXEN 500 MG TABLET (FP) PO SCH (21:47)
[2018-03-02] MEDS: traZODone HCL 100 MG TABLET (FP) PO SCH (21:48)
[2018-03-02] MEDS: LIDOCAINE PATCH REMOVAL MC SCH (21:48)
[2018-03-02] MEDS ORDERED: MELATONIN 5 MG TABLETS PO PRN (22:00)
--- NOTE | 2018-03-03 09:48 | HP ---
Psychiatrist Admission - Data Date of interview: 03/03/18 Vital Signs: Vital Signs - 24 hr 03/03/18 03/03/18 00:30 03:30 Respiratory 18 18 Rate Allergies/Adverse Reactions: Allergies Allergy/AdvReac Type Severity Reaction Status Date / Time No Known Allergies Allergy Verified 02/26/18 10:46
[2018-03-03] MEDS: LIDOCAINE 5% TOPICAL PATCH TP SCH (10:35)
[2018-03-03] MEDS: PRENATAL VITAMINS W/ FOLIC ACID TABLET (FP) PO SCH (10:35)
[2018-03-03] MEDS: NAPROXEN 500 MG TABLET (FP) PO SCH ×2 (10:35→22:11)
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
--- NOTE | 2018-03-03 11:28 | PN ---
S Progress Note (SOAP) Subjective: c/o arthritic pain and protracgted opiodi withdrawal sx, would liketo start suboxone low dose. Objective: 03/03/18 11:27 Vital Signs - 24 hr 03/03/18 03/03/18 00:30 03:30 Respiratory 18 18 Rate labs reviewed Assessment: 03/03/18 11:28 arthritic paina nd protractd opioid withdrwal - add flexeril and subxone 2mg daily, will need appt if he wants to increase dose of suboxoen for aftercare.
[2018-03-03] MEDS: BUPRENORPHINE/NALOXONE 2 MG/0.5 MG FILM PACKET SL SCH (12:13)
[2018-03-03] MEDS: CYCLOBENZAPRINE HCL 10 MG TABLET (FP) PO SCH ×2 (14:05→22:11)
[2018-03-03] MEDS: THIAMINE HCL 100 MG TABLET (FP) PO SCH (22:11)
[2018-03-03] MEDS: traZODone HCL 100 MG TABLET (FP) PO SCH (22:11)
[2018-03-03] MEDS: LIDOCAINE PATCH REMOVAL MC SCH (22:12)
[2018-03-04] MEDS: ACETAMINOPHEN 325 MG TABLET (FP) PO PRN ×2 (06:09→14:16)
[2018-03-04] MEDS: CYCLOBENZAPRINE HCL 10 MG TABLET (FP) PO SCH ×3 (06:09→21:45)
[2018-03-04] MEDS: BUPRENORPHINE/NALOXONE 2 MG/0.5 MG FILM PACKET SL SCH (09:56)
[2018-03-04] MEDS: NAPROXEN 500 MG TABLET (FP) PO SCH ×2 (09:56→21:45)
[2018-03-04] MEDS: LIDOCAINE 5% TOPICAL PATCH TP SCH (09:56)
[2018-03-04] MEDS: PRENATAL VITAMINS W/ FOLIC ACID TABLET (FP) PO SCH (09:56)
[2018-03-04] MEDS ORDERED: NICOTINE POLACRILEX 2 MG GUM BUC PRN (14:41)
[2018-03-04] MEDS: traZODone HCL 100 MG TABLET (FP) PO SCH (21:45)
[2018-03-04] MEDS: THIAMINE HCL 100 MG TABLET (FP) PO SCH (21:45)
[2018-03-04] MEDS: LIDOCAINE PATCH REMOVAL MC SCH (21:46)
[2018-03-05] MEDS: CYCLOBENZAPRINE HCL 10 MG TABLET (FP) PO SCH ×3 (06:35→21:58)
[2018-03-05] MEDS: PRENATAL VITAMINS W/ FOLIC ACID TABLET (FP) PO SCH (10:37)
[2018-03-05] MEDS: LIDOCAINE 5% TOPICAL PATCH TP SCH (10:37)
[2018-03-05] MEDS: BUPRENORPHINE/NALOXONE 2 MG/0.5 MG FILM PACKET SL SCH (10:37)
[2018-03-05] MEDS: NICOTINE 21 MG/24 HOURS TOPICAL PATCH TD SCH (10:37)
[2018-03-05] MEDS: NAPROXEN 500 MG TABLET (FP) PO SCH ×2 (10:38→21:58)
[2018-03-05] MEDS: ACETAMINOPHEN 325 MG TABLET (FP) PO PRN (14:19)
[2018-03-05] MEDS: traZODone HCL 100 MG TABLET (FP) PO SCH (21:58)
[2018-03-05] MEDS: LIDOCAINE PATCH REMOVAL MC SCH (21:58)
[2018-03-05] MEDS: THIAMINE HCL 100 MG TABLET (FP) PO SCH (21:58)
[2018-03-06] MEDS: CYCLOBENZAPRINE HCL 10 MG TABLET (FP) PO SCH ×3 (06:41→21:33)
[2018-03-06] MEDS: ACETAMINOPHEN 325 MG TABLET (FP) PO PRN (06:42)
[2018-03-06] MEDS: NAPROXEN 500 MG TABLET (FP) PO SCH ×2 (10:19→21:33)
[2018-03-06] MEDS: BUPRENORPHINE/NALOXONE 2 MG/0.5 MG FILM PACKET SL SCH (10:19)
[2018-03-06] MEDS: LIDOCAINE 5% TOPICAL PATCH TP SCH (10:19)
[2018-03-06] MEDS: PRENATAL VITAMINS W/ FOLIC ACID TABLET (FP) PO SCH (10:19)
[2018-03-06] MEDS: NICOTINE 21 MG/24 HOURS TOPICAL PATCH TD SCH (10:19)
[2018-03-06] MEDS: LIDOCAINE PATCH REMOVAL MC SCH (21:32)
[2018-03-06] MEDS: THIAMINE HCL 100 MG TABLET (FP) PO SCH (21:33)
[2018-03-06] MEDS: traZODone HCL 100 MG TABLET (FP) PO SCH (21:33)
[2018-03-07] MEDS: CYCLOBENZAPRINE HCL 10 MG TABLET (FP) PO SCH ×3 (06:14→21:35)
[2018-03-07] MEDS: ACETAMINOPHEN 325 MG TABLET (FP) PO PRN ×2 (06:15→14:14)
[2018-03-07] MEDS: PRENATAL VITAMINS W/ FOLIC ACID TABLET (FP) PO SCH (10:59)
[2018-03-07] MEDS: NICOTINE 21 MG/24 HOURS TOPICAL PATCH TD SCH (11:00)
[2018-03-07] MEDS: NAPROXEN 500 MG TABLET (FP) PO SCH ×2 (11:00→21:35)
[2018-03-07] MEDS: BUPRENORPHINE/NALOXONE 2 MG/0.5 MG FILM PACKET SL SCH (11:00)
[2018-03-07] MEDS: LIDOCAINE 5% TOPICAL PATCH TP SCH (11:00)
[2018-03-07] MEDS: traZODone HCL 100 MG TABLET (FP) PO SCH (21:35)
[2018-03-07] MEDS: THIAMINE HCL 100 MG TABLET (FP) PO SCH (21:35)
[2018-03-07] MEDS: LIDOCAINE PATCH REMOVAL MC SCH (21:36)
[2018-03-08] MEDS: CYCLOBENZAPRINE HCL 10 MG TABLET (FP) PO SCH ×3 (06:35→21:26)
[2018-03-08] MEDS: ACETAMINOPHEN 325 MG TABLET (FP) PO PRN ×2 (06:36→14:02)
[2018-03-08] MEDS: NICOTINE 21 MG/24 HOURS TOPICAL PATCH TD SCH (10:12)
[2018-03-08] MEDS: BUPRENORPHINE/NALOXONE 2 MG/0.5 MG FILM PACKET SL SCH (10:12)
[2018-03-08] MEDS: PRENATAL VITAMINS W/ FOLIC ACID TABLET (FP) PO SCH (10:12)
[2018-03-08] MEDS: NAPROXEN 500 MG TABLET (FP) PO SCH ×2 (10:12→21:26)
[2018-03-08] MEDS: LIDOCAINE 5% TOPICAL PATCH TP SCH (10:15)
[2018-03-08] MEDS: THIAMINE HCL 100 MG TABLET (FP) PO SCH (21:26)
[2018-03-08] MEDS: traZODone HCL 100 MG TABLET (FP) PO SCH (21:26)
[2018-03-08] MEDS: LIDOCAINE PATCH REMOVAL MC SCH (21:27)
[2018-03-09] MEDS: CYCLOBENZAPRINE HCL 10 MG TABLET (FP) PO SCH ×3 (06:12→21:41)
[2018-03-09] MEDS: ACETAMINOPHEN 325 MG TABLET (FP) PO PRN ×2 (06:12→14:11)
[2018-03-09] MEDS: PRENATAL VITAMINS W/ FOLIC ACID TABLET (FP) PO SCH (10:25)
[2018-03-09] MEDS: NAPROXEN 500 MG TABLET (FP) PO SCH ×2 (10:25→21:41)
[2018-03-09] MEDS: BUPRENORPHINE/NALOXONE 2 MG/0.5 MG FILM PACKET SL SCH (10:25)
[2018-03-09] MEDS: LIDOCAINE 5% TOPICAL PATCH TP SCH (10:26)
[2018-03-09] MEDS: NICOTINE 21 MG/24 HOURS TOPICAL PATCH TD SCH (10:26)
[2018-03-09] MEDS: traZODone HCL 100 MG TABLET (FP) PO SCH (21:41)
[2018-03-09] MEDS: LIDOCAINE PATCH REMOVAL MC SCH (21:41)
[2018-03-09] MEDS: THIAMINE HCL 100 MG TABLET (FP) PO SCH (21:41)
[2018-03-10] MEDS: ACETAMINOPHEN 325 MG TABLET (FP) PO PRN ×2 (06:30→14:07)
[2018-03-10] MEDS: CYCLOBENZAPRINE HCL 10 MG TABLET (FP) PO SCH ×3 (06:30→21:53)
[2018-03-10] MEDS: PRENATAL VITAMINS W/ FOLIC ACID TABLET (FP) PO SCH (10:24)
[2018-03-10] MEDS: BUPRENORPHINE/NALOXONE 2 MG/0.5 MG FILM PACKET SL SCH (10:24)
[2018-03-10] MEDS: NAPROXEN 500 MG TABLET (FP) PO SCH ×2 (10:24→21:53)
[2018-03-10] MEDS: NICOTINE 21 MG/24 HOURS TOPICAL PATCH TD SCH (10:24)
[2018-03-10] MEDS: LIDOCAINE 5% TOPICAL PATCH TP SCH (10:24)
[2018-03-10] MEDS: THIAMINE HCL 100 MG TABLET (FP) PO SCH (21:53)
[2018-03-10] MEDS: traZODone HCL 100 MG TABLET (FP) PO SCH (21:53)
[2018-03-10] MEDS: LIDOCAINE PATCH REMOVAL MC SCH (21:54)
[2018-03-11] MEDS: ACETAMINOPHEN 325 MG TABLET (FP) PO PRN ×2 (06:27→14:11)
[2018-03-11] MEDS: CYCLOBENZAPRINE HCL 10 MG TABLET (FP) PO SCH ×3 (06:28→21:52)
[2018-03-11] MEDS ORDERED: BUPRENORPHINE/NALOXONE 2 MG/0.5 MG FILM PACKET SL SCH ×2 (10:00)
[2018-03-11] MEDS: PRENATAL VITAMINS W/ FOLIC ACID TABLET (FP) PO SCH (10:50)
[2018-03-11] MEDS: LIDOCAINE 5% TOPICAL PATCH TP SCH (10:50)
[2018-03-11] MEDS: NICOTINE 21 MG/24 HOURS TOPICAL PATCH TD SCH (10:50)
[2018-03-11] MEDS: NAPROXEN 500 MG TABLET (FP) PO SCH ×2 (10:50→21:52)
--- NOTE | 2018-03-11 13:58 | PN ---
[facility] Progress Note Note: Pt presents with cravings, night sweats, irritability and anxiety. Laboratory Tests 03/07/18 03/08/18 03/08/18 16:46 06:35 07:00 POC Glucometer 180 86 Fasting Glucose 96 03/08/18 16:48 POC Glucometer 134 Fasting Glucose Vital Signs Temperature 97.9 F 03/11/18 07:07 Pulse Rate 69 03/11/18 07:07 Respiratory Rate 18 03/11/18 07:07 Blood Pressure 136/68 03/11/18 07:07 O2 Sat by Pulse Oximetry (%) Obj: General: Alert and oriented x 3. Skin: forehead moist and warm Car: S1S2 Resp: CTA BL Psych: anxious and difficult for pt to sit still A/P: withdrawal syndrome Will increase suboxone to 4mg daily starting in morning continue to monitor
[2018-03-11] MEDS: THIAMINE HCL 100 MG TABLET (FP) PO SCH (21:52)
[2018-03-11] MEDS: traZODone HCL 100 MG TABLET (FP) PO SCH (21:52)
[2018-03-11] MEDS: LIDOCAINE PATCH REMOVAL MC SCH (21:53)
[2018-03-12] MEDS: CYCLOBENZAPRINE HCL 10 MG TABLET (FP) PO SCH ×3 (06:33→21:37)
[2018-03-12] MEDS: ACETAMINOPHEN 325 MG TABLET (FP) PO PRN (06:35)
[2018-03-12] MEDS: NAPROXEN 500 MG TABLET (FP) PO SCH ×2 (10:08→21:37)
[2018-03-12] MEDS: PRENATAL VITAMINS W/ FOLIC ACID TABLET (FP) PO SCH (10:08)
[2018-03-12] MEDS: NICOTINE 21 MG/24 HOURS TOPICAL PATCH TD SCH (10:08)
[2018-03-12] MEDS: BUPRENORPHINE/NALOXONE 2 MG/0.5 MG FILM PACKET SL SCH (10:09)
[2018-03-12] MEDS: LIDOCAINE 5% TOPICAL PATCH TP SCH (10:09)
[2018-03-12] MEDS: THIAMINE HCL 100 MG TABLET (FP) PO SCH (21:37)
[2018-03-12] MEDS: traZODone HCL 100 MG TABLET (FP) PO SCH (21:37)
[2018-03-12] MEDS: LIDOCAINE PATCH REMOVAL MC SCH (21:38)
[2018-03-13] MEDS: CYCLOBENZAPRINE HCL 10 MG TABLET (FP) PO SCH ×3 (06:36→21:42)
[2018-03-13] MEDS: ACETAMINOPHEN 325 MG TABLET (FP) PO PRN (06:37)
[2018-03-13] MEDS: BUPRENORPHINE/NALOXONE 2 MG/0.5 MG FILM PACKET SL SCH (10:23)
[2018-03-13] MEDS: NICOTINE 21 MG/24 HOURS TOPICAL PATCH TD SCH (10:23)
[2018-03-13] MEDS: NAPROXEN 500 MG TABLET (FP) PO SCH ×2 (10:23→21:42)
[2018-03-13] MEDS: PRENATAL VITAMINS W/ FOLIC ACID TABLET (FP) PO SCH (10:23)
[2018-03-13] MEDS: LIDOCAINE 5% TOPICAL PATCH TP SCH (10:24)
[2018-03-13] MEDS: THIAMINE HCL 100 MG TABLET (FP) PO SCH (21:42)
[2018-03-13] MEDS: traZODone HCL 100 MG TABLET (FP) PO SCH (21:42)
[2018-03-13] MEDS: LIDOCAINE PATCH REMOVAL MC SCH (21:43)
[2018-03-14] MEDS: CYCLOBENZAPRINE HCL 10 MG TABLET (FP) PO SCH ×3 (06:39→21:50)
[2018-03-14] MEDS: ACETAMINOPHEN 325 MG TABLET (FP) PO PRN ×2 (06:39→14:13)
[2018-03-14] MEDS: PRENATAL VITAMINS W/ FOLIC ACID TABLET (FP) PO SCH (10:54)
[2018-03-14] MEDS: NICOTINE 21 MG/24 HOURS TOPICAL PATCH TD SCH (10:54)
[2018-03-14] MEDS: LIDOCAINE 5% TOPICAL PATCH TP SCH (10:54)
[2018-03-14] MEDS: BUPRENORPHINE/NALOXONE 2 MG/0.5 MG FILM PACKET SL SCH (10:54)
[2018-03-14] MEDS: NAPROXEN 500 MG TABLET (FP) PO SCH ×2 (10:54→21:50)
[2018-03-14] MEDS: THIAMINE HCL 100 MG TABLET (FP) PO SCH (21:50)
[2018-03-14] MEDS: traZODone HCL 100 MG TABLET (FP) PO SCH (21:50)
[2018-03-14] MEDS: LIDOCAINE PATCH REMOVAL MC SCH (21:51)
[2018-03-15] MEDS: ACETAMINOPHEN 325 MG TABLET (FP) PO PRN ×2 (06:26→14:05)
[2018-03-15] MEDS: CYCLOBENZAPRINE HCL 10 MG TABLET (FP) PO SCH ×3 (06:26→21:46)
[2018-03-15] MEDS: NAPROXEN 500 MG TABLET (FP) PO SCH ×2 (10:27→21:46)
[2018-03-15] MEDS: PRENATAL VITAMINS W/ FOLIC ACID TABLET (FP) PO SCH (10:27)
[2018-03-15] MEDS: LIDOCAINE 5% TOPICAL PATCH TP SCH (10:27)
[2018-03-15] MEDS: NICOTINE 21 MG/24 HOURS TOPICAL PATCH TD SCH (10:27)
[2018-03-15] MEDS: BUPRENORPHINE/NALOXONE 2 MG/0.5 MG FILM PACKET SL SCH (10:27)
[2018-03-15] MEDS: traZODone HCL 100 MG TABLET (FP) PO SCH (21:46)
[2018-03-15] MEDS: THIAMINE HCL 100 MG TABLET (FP) PO SCH (21:46)
[2018-03-15] MEDS: LIDOCAINE PATCH REMOVAL MC SCH (21:47)
[2018-03-16] MEDS: ACETAMINOPHEN 325 MG TABLET (FP) PO PRN ×2 (06:29→14:12)
[2018-03-16] MEDS: CYCLOBENZAPRINE HCL 10 MG TABLET (FP) PO SCH ×3 (06:29→21:37)
[2018-03-16] MEDS: NICOTINE 21 MG/24 HOURS TOPICAL PATCH TD SCH (10:29)
[2018-03-16] MEDS: NAPROXEN 500 MG TABLET (FP) PO SCH ×2 (10:29→21:37)
[2018-03-16] MEDS: BUPRENORPHINE/NALOXONE 2 MG/0.5 MG FILM PACKET SL SCH (10:29)
[2018-03-16] MEDS: PRENATAL VITAMINS W/ FOLIC ACID TABLET (FP) PO SCH (10:29)
[2018-03-16] MEDS: LIDOCAINE 5% TOPICAL PATCH TP SCH (10:29)
[2018-03-16] MEDS: traZODone HCL 100 MG TABLET (FP) PO SCH (21:37)
[2018-03-16] MEDS: THIAMINE HCL 100 MG TABLET (FP) PO SCH (21:37)
[2018-03-16] MEDS: LIDOCAINE PATCH REMOVAL MC SCH (21:38)
[2018-03-17] MEDS: ACETAMINOPHEN 325 MG TABLET (FP) PO PRN ×2 (02:38→14:04)
[2018-03-17] MEDS: CYCLOBENZAPRINE HCL 10 MG TABLET (FP) PO SCH ×3 (06:34→22:10)
[2018-03-17] MEDS: PRENATAL VITAMINS W/ FOLIC ACID TABLET (FP) PO SCH (10:33)
[2018-03-17] MEDS: BUPRENORPHINE/NALOXONE 2 MG/0.5 MG FILM PACKET SL SCH (10:34)
[2018-03-17] MEDS: LIDOCAINE 5% TOPICAL PATCH TP SCH (10:34)
[2018-03-17] MEDS: NAPROXEN 500 MG TABLET (FP) PO SCH ×2 (10:34→22:10)
[2018-03-17] MEDS: NICOTINE 21 MG/24 HOURS TOPICAL PATCH TD SCH (10:34)
[2018-03-17] MEDS: THIAMINE HCL 100 MG TABLET (FP) PO SCH (22:10)
[2018-03-17] MEDS: traZODone HCL 100 MG TABLET (FP) PO SCH (22:10)
[2018-03-17] MEDS: LIDOCAINE PATCH REMOVAL MC SCH (22:11)
[2018-03-18] MEDS: CYCLOBENZAPRINE HCL 10 MG TABLET (FP) PO SCH ×3 (06:43→21:46)
[2018-03-18] MEDS: ACETAMINOPHEN 325 MG TABLET (FP) PO PRN (06:43)
[2018-03-18] MEDS: LIDOCAINE 5% TOPICAL PATCH TP SCH (10:10)
[2018-03-18] MEDS: NICOTINE 21 MG/24 HOURS TOPICAL PATCH TD SCH (10:10)
[2018-03-18] MEDS: PRENATAL VITAMINS W/ FOLIC ACID TABLET (FP) PO SCH (10:11)
[2018-03-18] MEDS: NAPROXEN 500 MG TABLET (FP) PO SCH ×2 (10:11→21:46)
[2018-03-18] MEDS ORDERED: BUPRENORPHINE/NALOXONE 2 MG/0.5 MG FILM PACKET SL ONE (10:45)
[2018-03-18] MEDS: traZODone HCL 100 MG TABLET (FP) PO SCH (21:46)
[2018-03-18] MEDS: LIDOCAINE PATCH REMOVAL MC SCH (21:46)
[2018-03-18] MEDS: THIAMINE HCL 100 MG TABLET (FP) PO SCH (21:46)
[2018-03-19] MEDS: CYCLOBENZAPRINE HCL 10 MG TABLET (FP) PO SCH ×3 (06:50→21:44)
[2018-03-19] MEDS: ACETAMINOPHEN 325 MG TABLET (FP) PO PRN ×2 (06:50→13:56)
[2018-03-19] MEDS: BUPRENORPHINE/NALOXONE 2 MG/0.5 MG FILM PACKET SL SCH (10:14)
[2018-03-19] MEDS: LIDOCAINE 5% TOPICAL PATCH TP SCH (10:14)
[2018-03-19] MEDS: NAPROXEN 500 MG TABLET (FP) PO SCH ×2 (10:14→21:43)
[2018-03-19] MEDS: PRENATAL VITAMINS W/ FOLIC ACID TABLET (FP) PO SCH (10:14)
[2018-03-19] MEDS: NICOTINE 21 MG/24 HOURS TOPICAL PATCH TD SCH (10:15)
[2018-03-19] MEDS: LIDOCAINE PATCH REMOVAL MC SCH (21:44)
[2018-03-19] MEDS: THIAMINE HCL 100 MG TABLET (FP) PO SCH (21:44)
[2018-03-19] MEDS: traZODone HCL 100 MG TABLET (FP) PO SCH (21:44)
[2018-03-20] MEDS: P-EPHED 60MG/TRIPROLIDI 2.5MG TABLET PO PRN (00:26)
[2018-03-20] MEDS: CYCLOBENZAPRINE HCL 10 MG TABLET (FP) PO SCH ×3 (05:53→21:47)
[2018-03-20] MEDS: ACETAMINOPHEN 325 MG TABLET (FP) PO PRN ×2 (05:53→14:34)
[2018-03-20] MEDS: NAPROXEN 500 MG TABLET (FP) PO SCH ×2 (10:18→21:47)
[2018-03-20] MEDS: PRENATAL VITAMINS W/ FOLIC ACID TABLET (FP) PO SCH (10:18)
[2018-03-20] MEDS: NICOTINE 21 MG/24 HOURS TOPICAL PATCH TD SCH (10:18)
[2018-03-20] MEDS: BUPRENORPHINE/NALOXONE 2 MG/0.5 MG FILM PACKET SL SCH (10:18)
[2018-03-20] MEDS: LIDOCAINE 5% TOPICAL PATCH TP SCH (10:18)
[2018-03-20] MEDS: traZODone HCL 100 MG TABLET (FP) PO SCH (21:47)
[2018-03-20] MEDS: THIAMINE HCL 100 MG TABLET (FP) PO SCH (21:47)
[2018-03-20] MEDS: LIDOCAINE PATCH REMOVAL MC SCH (21:48)
[2018-03-21] MEDS: P-EPHED 60MG/TRIPROLIDI 2.5MG TABLET PO PRN (02:25)
[2018-03-21] MEDS: CYCLOBENZAPRINE HCL 10 MG TABLET (FP) PO SCH ×3 (06:26→21:50)
[2018-03-21] MEDS: ACETAMINOPHEN 325 MG TABLET (FP) PO PRN ×2 (06:26→13:58)
[2018-03-21 07:07] VITALS: TEMP 97.7
[2018-03-21] MEDS: NICOTINE 21 MG/24 HOURS TOPICAL PATCH TD SCH (09:42)
[2018-03-21] MEDS: BUPRENORPHINE/NALOXONE 2 MG/0.5 MG FILM PACKET SL SCH (09:42)
[2018-03-21] MEDS: PRENATAL VITAMINS W/ FOLIC ACID TABLET (FP) PO SCH (09:43)
[2018-03-21] MEDS: NAPROXEN 500 MG TABLET (FP) PO SCH ×2 (09:43→21:50)
[2018-03-21] MEDS: LIDOCAINE 5% TOPICAL PATCH TP SCH (09:46)
[2018-03-21] MEDS: THIAMINE HCL 100 MG TABLET (FP) PO SCH (21:50)
[2018-03-21] MEDS: traZODone HCL 100 MG TABLET (FP) PO SCH (21:50)
[2018-03-21] MEDS: LIDOCAINE PATCH REMOVAL MC SCH (21:51)
[2018-03-22] MEDS: CYCLOBENZAPRINE HCL 10 MG TABLET (FP) PO SCH (06:40)
[2018-03-22] MEDS: ACETAMINOPHEN 325 MG TABLET (FP) PO PRN (06:40)
[2018-03-22 06:56] VITALS: BP 140/69; PULSE 61
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
[2018-03-22] MEDS: NAPROXEN 500 MG TABLET (FP) PO SCH (09:55)
[2018-03-22] MEDS: PRENATAL VITAMINS W/ FOLIC ACID TABLET (FP) PO SCH (09:55)
[2018-03-22] MEDS: BUPRENORPHINE/NALOXONE 2 MG/0.5 MG FILM PACKET SL SCH (09:56)
[2018-03-22] MEDS: NICOTINE 21 MG/24 HOURS TOPICAL PATCH TD SCH (09:56)
[2018-03-22] MEDS: LIDOCAINE 5% TOPICAL PATCH TP SCH (09:57)
== END 2018-03-22 10:55 | disposition home or self-care (01) | DRG 772 ==
LOC: YASAS 17:47 → Y5N 17:48
PROVIDERS: ADMIT Psychiatry & Neurology Psychiatry; ATTEND Psychiatry & Neurology Psychiatry
PROC: HZ42ZZZ Group Counseling for Substance Abuse Treatment, Cognitive-Behavioral (ICD-10-PCS; principal; 2018-03-02)
DX: F11.20 Opioid dependence, uncomplicated (principal); F10.20 Alcohol dependence, uncomplicated; F17.210 Nicotine dependence, cigarettes, uncomplicated; F19.24 Other psychoactive substance dependence with psychoactive substance-induced mood disorder; Z51.81 Encounter for therapeutic drug level monitoring; F19.282 Other psychoactive substance dependence with psychoactive substance-induced sleep disorder; H54.8 Legal blindness, as defined in USA; M13.851 Other specified arthritis, right hip
CPT/HCPCS: 36415; 82947; 82962

== ENCOUNTER 2018-04-29 19:29 | Inpatient (IN) | payer OTHER ==
--- NOTE | 2018-04-29 20:12 | HP ---
COWS - Scale Resting Pulse: 1= [place] 81-100 Sweatin=Flushed/Facial Moisture Restless Observation: 1= Difficult to Sit Still Pupil Size: 1= Pupils >than Normal Bone or Joint Aches: 1= Mild Discomfort (r/t withdrawal symptoms) Runny Nose/ Eye Tearin= Nasal Congestion GI Upset > 30mins: 2= Nausea/Diarrhea Tremor Observation: 2= Slight Tremor Visible Yawning Observation: 0= None Anxiety or Irritability: 1=Feels Anxious/Irritable Goose Flesh Skin: 0=Smooth Skin COWS Score: 12 CIWA Score - CIWA Score Nausea/Vomitin-Mild Nausea/No Vomiting Muscle Tremors: 4-Moderate,w/Arms Extend Anxiety: 1-Mildly Anxious Agitation: 3 Paroxysmal Sweats: 4-Forehead w/Sweat Beads Orientation: 0-Oriented Tacttile Disturbances: 0-None Auditory Disturbances: 0-None Visual Disturbances: 0-None Headache: 0-None Present CIWA-Ar Total Score: 13 Admission ROS [facility] - HPI Chief Complaint: Here for alcohol and opiate withdrawal.Also having withdrawal from marijuana. Allergies/Adverse Reactions: Allergies Allergy/AdvReac Type Severity Reaction Status Date / Time No Known Allergies Allergy Verified 02/26/18 10:46 History of Present Illness: Completed a detox in February 2018 and relapsed after 3 days because unable to get Suboxone. Also relapsed with alcohol and THC. 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 Wants to go to rehab after detox. last used Suboxone 30 days ago. Wants a methadone taper and then to be restarted on Suboxone while in rehab. Exam Limitations: Clinical Condition - Ebola screening Have you traveled outside of the country in the last 21 days: No Have you had contact with anyone from an Ebola affected area: No Have you been sick,other than usual withdrawal symptoms: No Do you have a fever: No - Review of Systems Constitutional: Chills, Changes in sleep (For years and was rx'd in past w/ Trazodone. Last Trazodone in February.) EENT: reports: Dental Problems (Missing teeth, cavities. Denies pain. Able to chew and swallow without difficulty.), Other (Blind in (L) eye from .) Respiratory: reports: No Symptoms reported Cardiac: reports: No Symptoms Reported GI: reports: Diarrhea (BM's 4-5x/day x 2 days. Brown and watery. Solid today.) : reports: No Symptoms Reported Musculoskeletal: reports: Joint Pain ((R) hip pain daily r/t arthritis. Uses a cane for support and rest. to relieve pressure on hip. Pain is sharp and increases when moving to standing position. Pain "9" most days. Improves w/ laying down.), Muscle Weakness (Generalized for years.) Integumentary: reports: Dryness (Skin lower legs dry and itchy.) Neuro: reports: Headache (Mild.), Numbness (Numbness fingertips (R) hand.), Tremors, Unsteady Gait (r/t hip pain.) Endocrine: reports: No Symptoms Reported Hematology: reports: No Symptoms Reported Psychiatric: reports: Orientated x3, Agitated, Anxious, Depressed (Hx depression. Denies suicide or violent ideation.) Patient History - Patient Medical History Hx Anemia: No Hx Asthma: No Hx Chronic Obstructive Pulmonary Disease (COPD): No Hx Cancer: No Hx Cardiac Disorders: No Hx Congestive Heart Failure: No Hx Hypertension: No Hx Hypercholesterolemia: No Hx Pacemaker: No HX Cerebrovascular Accident: No Hx Seizures: No Hx Dementia: No Hx Diabetes: No Hx Gastrointestinal Disorders: No Hx Liver Disease: No Hx Genitourinary Disorders: No Hx Sexually Transmitted Disorders: No Hx Renal Disease (ESRD): No Hx Thyroid Disease: No Hx Human Immunodeficiency Virus (HIV): No (negative) Hx Hepatitis C: No Hx Depression: Yes (on meds, hospitalized once several years ago) Hx Suicide Attempt: No (Denies suicide or violent ideation.) Hx Bipolar Disorder: No Hx Schizophrenia: No - Patient Surgical History Past Surgical History: Yes Hx Neurologic Surgery: No Hx Cataract Extraction: No Hx Cardiac Surgery: No Hx Lung Surgery: No Hx Breast Surgery: No Hx Breast Biopsy: No Hx Abdominal Surgery: No Hx Appendectomy: No Hx Cholecystectomy: No Hx Genitourinary Surgery: No Hx Section: No Hx Orthopedic Surgery: No Other Surgical History: L eye surgery at age 7 yrs old. hx Lazy eye Anesthesia Reaction: No - PPD History Previous Implant?: Yes Date: 09/30/17 - Smoking Cessation Smoking history: Current every day smoker Have you smoked in the past 12 months: Yes Aproximately how many cigarettes per day: 10 Cigars Per Day: 0 Hx Chewing Tobacco Use: No Initiated information on smoking cessation: Yes 'Breaking Loose' booklet given: 04/29/18 - Substance & Tx. History Hx Alcohol Use: Yes Hx Substance Use: Yes Substance Use Type: Alcohol, Heroin, Marijuana Hx Substance Use Treatment: Yes (Suboxone while in rehab but not filled on outside.) - Substances Abused Alcohol Route: Oral Frequency: Daily Amount used: 5-6 25 oz cans also 1/4 pint vodka Age of first use: 12 Date of Last Use: 04/29/18 (Last drink at 3 pm) Heroin Route: Sniff Frequency: Daily Amount used: 5-6 bags Age of first use: 24 Date of Last Use: 04/29/18 (1 pm) Marijuana/Hashish Frequency: 3-6 times per week Amount used: 1 blunt Age of first use: 12 Date of Last Use: 04/27/18 Family Disease History - Family Disease History Family Disease History: Heart Disease: Mother (HTN/,), Brother (DRUG, ALCOHOL,MO,HEMODIALYSIS), Other: Father (, ? no contac), Mother, Brother , Son (two sons, adults, one with leukemia) Admission Physical Exam [facility] - Physical General Appearance: Yes: Appropriately Dressed, Mild Distress, Tremorous, Anxious HEENTM: Yes: Hearing grossly Normal, Orbits (Both eyes w/ increased erythem/ injection. Conjunctiva pink. No exudate.), Other (Blind (L) eye w/ abnorma EOM. Denies pain or discomfort.) Respiratory: Yes: Chest Non-Tender, Lungs Clear, Normal Breath Sounds, No Respiratory Distress Neck: Yes: No masses,lesions,Nodules, Supple Breast: Yes: Breast Exam Deferred Cardiology: Yes: Regular Rhythm, Regular Rate, S1, S2 Abdominal: Yes: Normal Bowel Sounds, Non Tender, Flat, Soft Genitourinary: Yes: Within Normal Limits Back: Yes: Normal Inspection Musculoskeletal: Yes: Joint Stiffness (Stiffness (R) hip. Unsteady gait - walks w/ a limp..), Other (Gait unsteady. Has a limp.) Extremities: Yes: Normal Capillary Refill, Tremors Neurological: Yes: Fully Oriented, Alert, Motor Strength 5/5, Normal Response Integumentary: Yes: Within Normal Limits Lymphatic: Yes: Within Normal Limits - Diagnostic (1) Alcohol withdrawal Current Visit: Yes Status: Acute Qualifiers: Complication of substance-induced condition: uncomplicated Qualified Code(s ): F10.230 - Alcohol dependence with withdrawal, uncomplicated (2) Cannabis dependence Current Visit: Yes Status: Chronic (3) Insomnia Current Visit: Yes Status: Chronic Qualifiers: Insomnia type: unspecified Qualified Code(s): G47.00 - Insomnia, unspecified (4) Nicotine dependence Current Visit: No Status: Acute Qualifiers: Nicotine product type: cigarettes Substance use status: in withdrawal Qualified Code(s): F17.213 - Nicotine dependence, cigarettes, with withdrawal (5) Opioid dependence with withdrawal Current Visit: Yes Status: Acute (6) Hip pain, right Current Visit: Yes Status: Chronic (7) Legally blind in left eye, as defined in [place] Current Visit: Yes Status: Chronic (8) Osteoarthritis Current Visit: Yes Status: Chronic Qualifiers: Osteoarthritis location: multiple joints Osteoarthritis type: primary Qualified Code(s): M15.0 - Primary generalized (osteo)arthritis (9) PPD positive Current Visit: No Status: Chronic Comment: never took INH, cxr 09/30/17 (10) Use of cane as ambulatory aid Current Visit: Yes Status: Chronic Comment: right hip Cleared for Admission [facility] - Detox or Rehab S Level of Care: Medically Managed Detox Regimen/Protocol: Methadone/Librium [facility] Breath Alcohol Content Breath Alcohol Content: 0
[2018-04-29] MEDS ORDERED: P-EPHED 60MG/TRIPROLIDI 2.5MG TABLET PO PRN (21:24)
[2018-04-29] MEDS ORDERED: METHADONE HCL 10 MG TABLET (FOR DETOX USE ONLY) PO ONE ×2 (21:24→23:00)
[2018-04-29] MEDS ORDERED: hydrOXYzine PAMOATE 50 MG CAPSULE (FP) PO PRN (21:24)
[2018-04-29] MEDS ORDERED: MAGNESIUM CITRATE 300 ML BOTTLE PO PRN (21:24)
[2018-04-29] MEDS ORDERED: MAG HYDROX/AL HYDROX/SIMETH 30 ML UNIT-DOSE CUP PO PRN (21:24)
[2018-04-29] MEDS ORDERED: chlordiazePOXIDE HCL 25 MG CAPSULE PO ONE (21:24)
[2018-04-29] MEDS ORDERED: MENTHOL/PHENOL 1 EACH UD MM PRN (21:24)
[2018-04-29] MEDS ORDERED: LOPERAMIDE HCL 2 MG CAPSULE PO PRN (21:24)
[2018-04-29] MEDS ORDERED: MAGNESIUM HYDROX 2400MG/30ML ORAL SUSPENSION 30 ML CUP PO PRN (21:24)
[2018-04-29] MEDS ORDERED: chlordiazePOXIDE HCL 25 MG CAPSULE PO PRN (21:24)
[2018-04-29] MEDS ORDERED: NICOTINE POLACRILEX 2 MG GUM BC PRN (21:24)
[2018-04-29] MEDS ORDERED: guaiFENesin/D-METHORPHAN HB 10 ML UNIT-DOSE CUPS PO PRN (21:24)
[2018-04-29] MEDS ORDERED: MELATONIN 5 MG TABLETS PO PRN (22:00)
[2018-04-29 22:05] VITALS: BMI 29.9
[2018-04-29] MEDS ORDERED: chlordiazePOXIDE HCL 25 MG CAPSULE PO SCH (23:00)
[2018-04-30] MEDS ORDERED: METHADONE HCL 10 MG TABLET (FOR DETOX USE ONLY) PO ONE ×3 (00:08→22:00)
[2018-04-30] MEDS ORDERED: chlordiazePOXIDE HCL 25 MG CAPSULE PO PRN (00:08)
[2018-04-30] MEDS: THIAMINE HCL 100 MG TABLET (FP) PO SCH ×2 (00:23→22:19)
[2018-04-30] MEDS: chlordiazePOXIDE HCL 25 MG CAPSULE PO SCH ×4 (05:43→22:19)
[2018-04-30] MEDS ORDERED: METHADONE HCL 10 MG TABLET (FOR DETOX USE ONLY) PO SCH (10:00)
[2018-04-30 10:16] LABS: URINE APPEARANCE CLEAR; URINE BILIRUBIN NEGATIVE (<2.0 mg/dL); URINE BLOOD NEGATIVE (NEGATIVE); URINE COLOR LTYELLOW; URINE GLUCOSE (UA) NEGATIVE (NEGATIVE); URINE KETONE NEGATIVE (NEGATIVE); URINE LEUK ESTERASE NEGATIVE (NEGATIVE); URINE NITRITE NEGATIVE (NEGATIVE); URINE PROTEIN NEGATIVE (NEGATIVE); URINE UROBILINOGEN NEGATIVE mg/dL (0.2-1.0)
[2018-04-30 10:16] LABS: HEMATOCRIT 37.6 % (35.4-49); HEMOGLOBIN 12.3 GM/dL (11.7-16.9); MCH 26.6 pg (25.7-33.7); MCHC 32.6 g/dl (32.0-35.9); MEAN CELL VOLUME 81.6 fl (80-96); MEAN PLT VOLUME 9.2 fl (7.5-11.1); PLATELET COUNT 267 K/MM3 (134-434); RBC 4.61 M/mm3 (4.00-5.60); RDW 15.9 % (11.9-15.9)
[2018-04-30 10:48] LABS: CHLORIDE 105 mmol/L (98-107); POTASSIUM 3.8 mmol/L (3.5-5.1); SODIUM 140 mmol/L (136-145)
[2018-04-30 10:56] LABS: ALBUMIN 3.2 g/dl (3.4-5.0); ALK PHOS 91 U/L (45-117); ANION GAP 7 (8-16); BILIRUBIN,TOTAL 0.5 mg/dL (0.2-1.0); BLOOD UREA NITROGEN 13 mg/dL (7-18); CALCIUM 8.1 mg/dL (8.5-10.1); CO2 28 mmol/L (21-32); CREATININE 0.9 mg/dL (0.7-1.3); GLUCOSE,RANDOM 117 mg/dL (74-106); SGOT/AST 18 U/L (15-37); SGPT/ALT 23 U/L (12-78); TOT PROT 6.5 g/dl (6.4-8.2)
[2018-04-30] MEDS: PRENATAL VITAMINS W/ FOLIC ACID TABLET (FP) PO SCH (11:09)
[2018-04-30] MEDS: LIDOCAINE 5% TOPICAL PATCH TP SCH (11:10)
[2018-04-30] MEDS: NICOTINE 14 MG/24 HOURS TOPICAL PATCH TD SCH (11:10)
--- NOTE | 2018-04-30 11:35 | PN ---
[facility] CIWA - CIWA Score Nausea/Vomitin-Mild Nausea/No Vomiting Muscle Tremors: 2 Anxiety: 2 Agitation: 1-Slight > Activity Paroxysmal Sweats: 2 Orientation: 0-Oriented Tacttile Disturbances: 0-None Auditory Disturbances: 0-None Visual Disturbances: 0-None Headache: 0-None Present CIWA-Ar Total Score: 8 BHS COWS - Scale Resting Pulse: 0= [place] 80 or Below Sweatin= Chills/Flushing Restless Observation: 1= Difficult to Sit Still Pupil Size: 0= Normal to Room Light Bone or Joint Aches: 1= Mild Discomfort Runny Nose/ Eye Tearin= Nasal Congestion GI Upset > 30mins: 2= Nausea/Diarrhea Tremor Observation of Outstretched Hands: 1= Tremor [place], Not Seen Yawning Observation: 1= 1-2x During Session Anxiety or Irritability: 1=Feels Anxious/Irritable Goose Flesh Skin: 0=Smooth Skin COWS Score: 9 S Progress Note (SOAP) Subjective: body aches, diarrhea, restless, +pain right hip and back, anxious Objective: 04/30/18 11:32 Vital Signs Temperature 97.9 F 04/30/18 10:00 Pulse Rate 60 04/30/18 10:00 Respiratory Rate 18 04/30/18 10:00 Blood Pressure 131/64 04/30/18 10:00 O2 Sat by Pulse Oximetry (%) Laboratory Last Values WBC 7.0 K/mm3 (4.0-10.0) 04/30/18 07:30 RBC 4.61 M/mm3 (4.00-5.60) 04/30/18 07:30 Hgb 12.3 GM/dL (11.7-16.9) 04/30/18 07:30 Hct 37.6 % (35.4-49) 04/30/18 07:30 MCV 81.6 fl (80-96) 04/30/18 07:30 MCH 26.6 pg (25.7-33.7) 04/30/18 07:30 MCHC 32.6 g/dl (32.0-35.9) 04/30/18 07:30 RDW 15.9 % (11.9-15.9) 04/30/18 07:30 Plt Count 267 K/MM3 (134-434) 04/30/18 07:30 MPV 9.2 fl (7.5-11.1) 04/30/18 07:30 Sodium 140 mmol/L (136-145) 04/30/18 07:30 Potassium 3.8 mmol/L (3.5-5.1) 04/30/18 07:30 Chloride 105 mmol/L (98-107) 04/30/18 07:30 Carbon Dioxide 28 mmol/L (21-32) 04/30/18 07:30 Anion Gap 7 (8-16) L 04/30/18 07:30 BUN 13 mg/dL (7-18) 04/30/18 07:30 Creatinine 0.9 mg/dL (0.7-1.3) 04/30/18 07:30 Creat Clearance w eGFR > 60 (>60) 04/30/18 07:30 Random Glucose 117 mg/dL (74-106) H D 04/30/18 07:30 Calcium 8.1 mg/dL (8.5-10.1) L 04/30/18 07:30 Total Bilirubin 0.5 mg/dL (0.2-1.0) D 04/30/18 07:30 AST 18 U/L (15-37) 04/30/18 07:30 ALT 23 U/L (12-78) D 04/30/18 07:30 Alkaline Phosphatase 91 U/L (45-117) 04/30/18 07:30 Total Protein 6.5 g/dl (6.4-8.2) 04/30/18 07:30 Albumin 3.2 g/dl (3.4-5.0) L 04/30/18 07:30 Urine Color Ltyellow 04/30/18 07:50 Urine Appearance Clear 04/30/18 07:50 Urine pH 7.0 (5.0-8.0) 04/30/18 07:50 Ur Specific [place] 1.016 (1.001-1.035) 04/30/18 07:50 Urine Protein Negative (NEGATIVE) 04/30/18 07:50 Urine Glucose (UA) Negative (NEGATIVE) 04/30/18 07:50 Urine Ketones Negative (NEGATIVE) 04/30/18 07:50 Urine Blood Negative (NEGATIVE) 04/30/18 07:50 Urine Nitrite Negative (NEGATIVE) 04/30/18 07:50 Urine Bilirubin Negative (<2.0 mg/dL) 04/30/18 07:50 Urine Urobilinogen Negative mg/dL (0.2-1.0) 04/30/18 07:50 Ur Leukocyte Esterase Negative (NEGATIVE) 04/30/18 07:50 Assessment: 04/30/18 11:33 AOx3, in no distress + sweats + right hip and back pain full ROM - withdrawal symptoms - back pain - right hip pain Plan: Continue detox increase fluids flexeril for back pain lidocaine patch for right hip continue to monitor
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
[2018-04-30] MEDS: IBUPROFEN 400 MG TABLET (FP) PO PRN (15:19)
[2018-04-30] MEDS: CYCLOBENZAPRINE HCL 5 MG TABLET PO PRN (15:19)
[2018-04-30] MEDS: LIDOCAINE PATCH REMOVAL MC SCH (22:19)
[2018-04-30] MEDS: traZODone HCL 50 MG TABLET (FP) PO SCH (22:19)
[2018-04-30] MEDS ORDERED: chlordiazePOXIDE HCL 25 MG CAPSULE PO SCH (23:00)
[2018-05-01] MEDS: IBUPROFEN 400 MG TABLET (FP) PO PRN ×3 (02:28→17:41)
[2018-05-01] MEDS: chlordiazePOXIDE HCL 25 MG CAPSULE PO SCH ×4 (05:40→22:35)
[2018-05-01] MEDS: CYCLOBENZAPRINE HCL 5 MG TABLET PO PRN ×3 (05:41→22:52)
[2018-05-01] MEDS ORDERED: METHADONE HCL 5 MG TABLET (FOR DETOX USE ONLY) PO SCH ×2 (10:00)
[2018-05-01] MEDS: NICOTINE 14 MG/24 HOURS TOPICAL PATCH TD SCH (10:21)
[2018-05-01] MEDS: PRENATAL VITAMINS W/ FOLIC ACID TABLET (FP) PO SCH (10:21)
[2018-05-01] MEDS: LIDOCAINE 5% TOPICAL PATCH TP SCH (10:23)
--- NOTE | 2018-05-01 12:00 | PN ---
[facility] CIWA - CIWA Score Nausea/Vomitin-No Nausea/No Vomiting Muscle Tremors: 2 Anxiety: 2 Agitation: 2 Paroxysmal Sweats: 1-Minimal Palms Moist Orientation: 0-Oriented Tacttile Disturbances: 0-None Auditory Disturbances: 0-None Visual Disturbances: 0-None Headache: 0-None Present CIWA-Ar Total Score: 7 BHS COWS - Scale Resting Pulse: 0= [place] 80 or Below Sweatin= Chills/Flushing Restless Observation: 1= Difficult to Sit Still Pupil Size: 0= Normal to Room Light Bone or Joint Aches: 1= Mild Discomfort Runny Nose/ Eye Tearin= Nasal Congestion GI Upset > 30mins: 1= Stomach Cramp Tremor Observation of Outstretched Hands: 1= Tremor [place], Not Seen Yawning Observation: 1= 1-2x During Session Anxiety or Irritability: 1=Feels Anxious/Irritable Goose Flesh Skin: 0=Smooth Skin COWS Score: 8 [facility] Progress Note (SOAP) Subjective: joint ache trouble sleep at night restlessness sweat chill Objective: 05/01/18 11:58 Vital Signs Temperature 98.1 F 05/01/18 09:05 Pulse Rate 56 L 05/01/18 09:05 Respiratory Rate 18 05/01/18 09:05 Blood Pressure 120/56 05/01/18 09:05 O2 Sat by Pulse Oximetry (%) Laboratory Last Values WBC 7.0 K/mm3 (4.0-10.0) 04/30/18 07:30 RBC 4.61 M/mm3 (4.00-5.60) 04/30/18 07:30 Hgb 12.3 GM/dL (11.7-16.9) 04/30/18 07:30 Hct 37.6 % (35.4-49) 04/30/18 07:30 MCV 81.6 fl (80-96) 04/30/18 07:30 MCH 26.6 pg (25.7-33.7) 04/30/18 07:30 MCHC 32.6 g/dl (32.0-35.9) 04/30/18 07:30 RDW 15.9 % (11.9-15.9) 04/30/18 07:30 Plt Count 267 K/MM3 (134-434) 04/30/18 07:30 MPV 9.2 fl (7.5-11.1) 04/30/18 07:30 Sodium 140 mmol/L (136-145) 04/30/18 07:30 Potassium 3.8 mmol/L (3.5-5.1) 04/30/18 07:30 Chloride 105 mmol/L (98-107) 04/30/18 07:30 Carbon Dioxide 28 mmol/L (21-32) 04/30/18 07:30 Anion Gap 7 (8-16) L 04/30/18 07:30 BUN 13 mg/dL (7-18) 04/30/18 07:30 Creatinine 0.9 mg/dL (0.7-1.3) 04/30/18 07:30 Creat Clearance w eGFR > 60 (>60) 04/30/18 07:30 Random Glucose 117 mg/dL (74-106) H D 04/30/18 07:30 Calcium 8.1 mg/dL (8.5-10.1) L 04/30/18 07:30 Total Bilirubin 0.5 mg/dL (0.2-1.0) D 04/30/18 07:30 AST 18 U/L (15-37) 04/30/18 07:30 ALT 23 U/L (12-78) D 04/30/18 07:30 Alkaline Phosphatase 91 U/L (45-117) 04/30/18 07:30 Total Protein 6.5 g/dl (6.4-8.2) 04/30/18 07:30 Albumin 3.2 g/dl (3.4-5.0) L 04/30/18 07:30 Urine Color Ltyellow 04/30/18 07:50 Urine Appearance Clear 04/30/18 07:50 Urine pH 7.0 (5.0-8.0) 04/30/18 07:50 Ur Specific [place] 1.016 (1.001-1.035) 04/30/18 07:50 Urine Protein Negative (NEGATIVE) 04/30/18 07:50 Urine Glucose (UA) Negative (NEGATIVE) 04/30/18 07:50 Urine Ketones Negative (NEGATIVE) 04/30/18 07:50 Urine Blood Negative (NEGATIVE) 04/30/18 07:50 Urine Nitrite Negative (NEGATIVE) 04/30/18 07:50 Urine Bilirubin Negative (<2.0 mg/dL) 04/30/18 07:50 Urine Urobilinogen Negative mg/dL (0.2-1.0) 04/30/18 07:50 Ur Leukocyte Esterase Negative (NEGATIVE) 04/30/18 07:50 RPR Titer Nonreactive (NONREACTIVE) 04/30/18 07:30 lab noted Assessment: 05/01/18 11:58 withdrawal sx 05/01/18 11:59 discuss recovery aftercare Plan: continue detox patient presents interesting in maintaining sobriety
--- NOTE | 2018-05-01 17:30 | PN ---
S Progress Note Note: OA right hip pain, pending right hip replacement. Vital Signs Temperature 96.8 F L 05/01/18 13:57 Pulse Rate 64 05/01/18 13:57 Respiratory Rate 18 05/01/18 13:57 Blood Pressure 144/81 05/01/18 13:57 O2 Sat by Pulse Oximetry (%) A/P AOx3 in no apparent distress no adventitious breath sounds ambulating in the unit - right hip OA Plan: Ibuprofen 800mg q8h lidocaine patch ambulate continue to monitor
[2018-05-01] MEDS: LIDOCAINE PATCH REMOVAL MC SCH (22:35)
[2018-05-01] MEDS: THIAMINE HCL 100 MG TABLET (FP) PO SCH (22:36)
[2018-05-01] MEDS: traZODone HCL 50 MG TABLET (FP) PO SCH (22:36)
--- NOTE | 2018-05-01 22:44 | EKG ---
Test Reason : Blood Pressure : / mmHG Vent. Rate : 057 BPM Atrial Rate : 057 BPM P-R Int : 148 ms QRS Dur : 092 ms QT Int : 422 ms P-R-T Axes : 065 050 051 degrees QTc Int : 410 ms SINUS BRADYCARDIA OTHERWISE NORMAL ECG WHEN COMPARED WITH ECG OF 26-FEB-2018 13:04, NO SIGNIFICANT CHANGE WAS FOUND Confirmed by JAGDISH ARITA MD ([id number]) on 05/01/2018 10:44:21 PM Referred By: Confirmed By:JAGDISH ARITA MD
[2018-05-01] MEDS ORDERED: chlordiazePOXIDE 5 MG CAPSULE PO SCH (23:00)
[2018-05-02] MEDS: ACETAMINOPHEN 325 MG TABLET (FP) PO PRN (00:43)
[2018-05-02] MEDS: chlordiazePOXIDE 5 MG CAPSULE PO SCH ×4 (05:36→22:20)
[2018-05-02] MEDS: IBUPROFEN 400 MG TABLET (FP) PO PRN (05:39)
[2018-05-02] MEDS: CYCLOBENZAPRINE HCL 5 MG TABLET PO PRN ×3 (05:39→23:45)
[2018-05-02] MEDS: PRENATAL VITAMINS W/ FOLIC ACID TABLET (FP) PO SCH (10:19)
[2018-05-02] MEDS: NICOTINE 14 MG/24 HOURS TOPICAL PATCH TD SCH (10:20)
[2018-05-02] MEDS: METHADONE HCL 5 MG TABLET (FOR DETOX USE ONLY) PO SCH (10:20)
[2018-05-02] MEDS: LIDOCAINE 5% TOPICAL PATCH TP SCH (10:20)
--- NOTE | 2018-05-02 12:00 | PN ---
S Progress Note (SOAP) Subjective: alert,irritable,interrupted sleep Objective: 05/02/18 11:58 Vital Signs Temperature 97.7 F 05/02/18 09:45 Pulse Rate 58 L 05/02/18 09:45 Respiratory Rate 20 05/02/18 09:45 Blood Pressure 140/75 05/02/18 09:45 O2 Sat by Pulse Oximetry (%) Assessment: 05/02/18 11:59 withdrawal symptom Plan: continue detox,discharge in am
[2018-05-02] MEDS: traZODone HCL 50 MG TABLET (FP) PO SCH (22:20)
[2018-05-02] MEDS: THIAMINE HCL 100 MG TABLET (FP) PO SCH (22:20)
[2018-05-02] MEDS: LIDOCAINE PATCH REMOVAL MC SCH (22:41)
[2018-05-02] MEDS ORDERED: chlordiazePOXIDE HCL 10 MG CAPSULE PO SCH (23:00)
[2018-05-03] MEDS: chlordiazePOXIDE HCL 10 MG CAPSULE PO SCH ×4 (05:49→22:18)
[2018-05-03] MEDS: CYCLOBENZAPRINE HCL 5 MG TABLET PO PRN (05:49)
[2018-05-03] MEDS: IBUPROFEN 400 MG TABLET (FP) PO PRN (05:50)
[2018-05-03] MEDS ORDERED: METHADONE HCL 10 MG TABLET (FOR DETOX USE ONLY) PO SCH (10:00)
[2018-05-03] MEDS: PRENATAL VITAMINS W/ FOLIC ACID TABLET (FP) PO SCH (10:27)
[2018-05-03] MEDS: METHADONE HCL 5 MG TABLET (FOR DETOX USE ONLY) PO SCH (10:28)
[2018-05-03] MEDS: NICOTINE 14 MG/24 HOURS TOPICAL PATCH TD SCH (10:28)
[2018-05-03] MEDS: LIDOCAINE 5% TOPICAL PATCH TP SCH (10:28)
--- NOTE | 2018-05-03 11:25 | PN ---
[facility] Progress Note (SOAP) Subjective: alert,interrupted sleep,pain in the body Objective: 05/03/18 11:24 Vital Signs Temperature 97.5 F L 05/03/18 09:20 Pulse Rate 68 05/03/18 09:20 Respiratory Rate 18 05/03/18 09:20 Blood Pressure 149/73 05/03/18 09:20 O2 Sat by Pulse Oximetry (%) Assessment: 05/03/18 11:24 withdrawal symptom Plan: continue detox
[2018-05-03] MEDS: traZODone HCL 50 MG TABLET (FP) PO SCH (22:18)
[2018-05-03] MEDS: LIDOCAINE PATCH REMOVAL MC SCH (22:18)
[2018-05-03] MEDS: THIAMINE HCL 100 MG TABLET (FP) PO SCH (22:18)
[2018-05-04] MEDS: IBUPROFEN 400 MG TABLET (FP) PO PRN (03:03)
[2018-05-04] MEDS: CYCLOBENZAPRINE HCL 5 MG TABLET PO PRN (05:04)
[2018-05-04] MEDS ORDERED: METHADONE HCL 5 MG TABLET (FOR DETOX USE ONLY) PO SCH (06:00)
--- NOTE | 2018-05-04 08:41 | PN ---
S Progress Note (SOAP) Subjective: alert,no complaint Objective: 05/04/18 08:38 Vital Signs Temperature 96.8 F L 05/04/18 06:21 Pulse Rate 75 05/04/18 06:21 Respiratory Rate 18 05/04/18 06:21 Blood Pressure 148/89 05/04/18 06:21 O2 Sat by Pulse Oximetry (%) Assessment: 05/04/18 08:39 detox completed,no withdrawal symptom Plan: discharge today,follow up with after care program as arrangement
--- NOTE | 2018-05-04 08:57 | DS ---
[facility] Detox Discharge Summary Admission Date: 04/29/18 Discharge Date: 05/04/18 - History Present History: Alcohol Dependence, Opioid Dependence Additional Comments: follow up with after care program as arrangement Pertinent Past History: osteoarthritis of right hip cane ambulation - Physical Exam Results Vital Signs: Vital Signs Temperature 96.8 F L 05/04/18 06:21 Pulse Rate 75 05/04/18 06:21 Respiratory Rate 18 05/04/18 06:21 Blood Pressure 148/89 05/04/18 06:21 O2 Sat by Pulse Oximetry (%) Pertinent Admission Physical Exam Findings: withdrawal signs and symptom Vital Signs Temperature 96.8 F L 05/04/18 06:21 Pulse Rate 75 05/04/18 06:21 Respiratory Rate 18 05/04/18 06:21 Blood Pressure 148/89 05/04/18 06:21 O2 Sat by Pulse Oximetry (%) Laboratory Last Values WBC 7.0 K/mm3 (4.0-10.0) 04/30/18 07:30 RBC 4.61 M/mm3 (4.00-5.60) 04/30/18 07:30 Hgb 12.3 GM/dL (11.7-16.9) 04/30/18 07:30 Hct 37.6 % (35.4-49) 04/30/18 07:30 MCV 81.6 fl (80-96) 04/30/18 07:30 MCH 26.6 pg (25.7-33.7) 04/30/18 07:30 MCHC 32.6 g/dl (32.0-35.9) 04/30/18 07:30 RDW 15.9 % (11.9-15.9) 04/30/18 07:30 Plt Count 267 K/MM3 (134-434) 04/30/18 07:30 MPV 9.2 fl (7.5-11.1) 04/30/18 07:30 Sodium 140 mmol/L (136-145) 04/30/18 07:30 Potassium 3.8 mmol/L (3.5-5.1) 04/30/18 07:30 Chloride 105 mmol/L (98-107) 04/30/18 07:30 Carbon Dioxide 28 mmol/L (21-32) 04/30/18 07:30 Anion Gap 7 (8-16) L 04/30/18 07:30 BUN 13 mg/dL (7-18) 04/30/18 07:30 Creatinine 0.9 mg/dL (0.7-1.3) 04/30/18 07:30 Creat Clearance w eGFR > 60 (>60) 04/30/18 07:30 Random Glucose 117 mg/dL (74-106) H D 04/30/18 07:30 Calcium 8.1 mg/dL (8.5-10.1) L 04/30/18 07:30 Total Bilirubin 0.5 mg/dL (0.2-1.0) D 04/30/18 07:30 AST 18 U/L (15-37) 04/30/18 07:30 ALT 23 U/L (12-78) D 04/30/18 07:30 Alkaline Phosphatase 91 U/L (45-117) 04/30/18 07:30 Total Protein 6.5 g/dl (6.4-8.2) 04/30/18 07:30 Albumin 3.2 g/dl (3.4-5.0) L 04/30/18 07:30 Urine Color Ltyellow 04/30/18 07:50 Urine Appearance Clear 04/30/18 07:50 Urine pH 7.0 (5.0-8.0) 04/30/18 07:50 Ur Specific [place] 1.016 (1.001-1.035) 04/30/18 07:50 Urine Protein Negative (NEGATIVE) 04/30/18 07:50 Urine Glucose (UA) Negative (NEGATIVE) 04/30/18 07:50 Urine Ketones Negative (NEGATIVE) 04/30/18 07:50 Urine Blood Negative (NEGATIVE) 04/30/18 07:50 Urine Nitrite Negative (NEGATIVE) 04/30/18 07:50 Urine Bilirubin Negative (<2.0 mg/dL) 04/30/18 07:50 Urine Urobilinogen Negative mg/dL (0.2-1.0) 04/30/18 07:50 Ur Leukocyte Esterase Negative (NEGATIVE) 04/30/18 07:50 RPR Titer Nonreactive (NONREACTIVE) 04/30/18 07:30 - Treatment Hospital Course: Detox Protocol Followed, Detoxed Safely, Responded well, Discharged Condition Good, Rehab Referral Accepted Patient has Accepted [facility] - Medication Discharge Medications: Ambulatory Orders Buprenorphine/Naloxone [Suboxone 2Mg/0.5MG Sl Film -] 2 each SL DAILY #30 film MDD 2 03/22/18 traZODone HCL [Desyrel -] 100 mg PO HS #30 tablet 03/22/18 - Diagnosis (1) Opioid dependence with withdrawal Current Visit: Yes Status: Acute (2) Alcohol dependence Current Visit: Yes Status: Acute (3) Alcohol withdrawal Current Visit: Yes Status: Acute Qualifiers: Complication of substance-induced condition: uncomplicated Qualified Code(s ): F10.230 - Alcohol dependence with withdrawal, uncomplicated (4) Cannabis dependence Current Visit: Yes Status: Acute (5) Low back pain Current Visit: Yes Status: Acute Qualifiers: Chronicity: acute Back pain laterality: midline Sciatica presence: without sciatica Qualified Code(s): M54.5 - Low back pain (6) Nicotine dependence Current Visit: Yes Status: Acute Qualifiers: Nicotine product type: cigarettes Substance use status: in withdrawal Qualified Code(s): F17.213 - Nicotine dependence, cigarettes, with withdrawal (7) Hip pain, right Current Visit: Yes Status: Chronic (8) Osteoarthritis Current Visit: Yes Status: Chronic Qualifiers: Osteoarthritis location: multiple joints Osteoarthritis type: primary Qualified Code(s): M15.0 - Primary generalized (osteo)arthritis (9) Use of cane as ambulatory aid Current Visit: Yes Status: Chronic
--- NOTE | 2018-05-04 09:02 | PN ---
[facility] Progress Note Note: [facility]
[2018-05-04] MEDS ORDERED: METHADONE HCL 10 MG TABLET (FOR DETOX USE ONLY) PO SCH (10:00)
[2018-05-04] MEDS: PRENATAL VITAMINS W/ FOLIC ACID TABLET (FP) PO SCH (10:28)
[2018-05-04] MEDS: ACETAMINOPHEN 325 MG TABLET (FP) PO PRN (10:28)
[2018-05-04] MEDS ORDERED: METHADONE HCL 5 MG TABLET (FOR DETOX USE ONLY) PO ONE (10:30)
[2018-05-04] MEDS: NICOTINE 14 MG/24 HOURS TOPICAL PATCH TD SCH (11:10)
[2018-05-04] MEDS: LIDOCAINE 5% TOPICAL PATCH TP SCH (11:11)
--- NOTE | 2018-05-04 11:53 | PN ---
Psychiatric Progress Note Vital Signs: Vital Signs Period Temp Pulse Resp BP Sys/Ruiz Pulse Ox Last 24 Hr 96 F-97.7 F 65-85 18-19 140-148/67-89 Date of Session: 05/04/18 Chief Complaint:: As per nursing report patient expressing suicidal ideation HPI: Patient reports motivation to start Suboxone upon discharge at [facility], as per counselos report there is no spots at [facility] for new patients at this time, as per [facility] report. Current Medications: Active Medications Generic Name Dose Route Start Last Admin Trade Name Freq PRN Reason Stop Dose Admin Acetaminophen 650 mg 04/29/18 21:24 05/04/18 10:28 Tylenol - PO 650 mg Q4H PRN Administration FEVER Al Hydroxide/Mg Hydroxide 30 ml 04/29/18 21:24 Mylanta Oral Suspension - PO Q6H PRN DYSPEPSIA Cyclobenzaprine HCl 5 mg 04/30/18 10:22 05/04/18 05:04 Cyclobenzaprine Hcl PO 5 mg TID PRN Administration BACK PAIN Eucalyptus/Menthol/Phenol/Sorbitol 1 each 04/29/18 21:24 Cepastat Lozenge - MM Q4H PRN SORE THROAT Guaifenesin 10 ml 04/29/18 21:24 Robitussin Dm - PO Q6H PRN COUGH Hydroxyzine Pamoate 50 mg 04/29/18 21:24 05/01/18 02:28 Vistaril - PO 50 mg Q4H PRN Administration AGITATION Ibuprofen 800 mg 05/01/18 17:28 05/04/18 03:03 Motrin - PO 800 mg Q8H PRN Administration PAIN LEVEL 4-6 Lidocaine 1 patch 04/30/18 10:00 05/04/18 11:11 Lidoderm Patch - TP 1 patch DAILY MEGHANA Administration Loperamide HCl 4 mg 04/29/18 21:24 Imodium - PO Q6H PRN DIARRHEA Magnesium Citrate 300 ml 04/29/18 21:24 Citroma - PO Q48H PRN CONSTIPATION Magnesium Hydroxide 30 ml 04/29/18 21:24 Milk Of Magnesia - PO DAILY PRN CONSTIPATION Melatonin 5 mg 04/29/18 22:00 Melatonin PO HS PRN INSOMNIA Miscellaneous 1 each 04/30/18 22:00 05/03/18 22:18 Lidoderm Patch Removal MC 1 each DAILY@2200 MEGHANA Administration Nicotine 14 mg 04/30/18 10:00 05/04/18 11:10 Nicoderm Patch - TD 14 mg DAILY MEGHANA Administration Nicotine Polacrilex 2 mg 04/29/18 21:24 Nicorette Gum - BC Q2H PRN NICOTINE REPLACEMENT RX Multivit/Folic Acid/Iron 1 tab 04/30/18 10:00 05/04/18 10:28 Vitamins (Sjr) - PO 1 tab DAILY MEGHANA Administration Pseudoephedrine/Triprolidine 1 combo 04/29/18 21:24 Actifed - PO TID PRN NASAL CONGESTION Thiamine HCl 100 mg 04/29/18 22:00 05/03/18 22:18 Vitamin B1 - PO 100 mg HS MEGHANA Administration Trazodone HCl 50 mg 04/30/18 22:00 05/03/18 22:18 Desyrel - PO 50 mg HS MEGHANA Administration Provider note:: Patient engaged in supportive psychotherapy, he agrees to be referred to another Substance abuse center, and to start Suboxone protocol there as needed. Patient relaxed and became cooperative , agreed to be referred to different Substance Abuse Outpatient Facility to start Suboxone treatment. Patient denies suicidal and homicidal ideation. Mental Status Exam - Mental Status Exam Alert and Oriented to: Place, Person Cognitive Function: Fair Patient Appearance: Well Groomed Mood: Angry, Nervous Affect: Mood Congruent Patient Behavior: Cooperative Speech Pattern: Appropriate Voice Loudness: Mildly Soft/Quiet Thought Process: Goal Oriented Thought Disorder: Being Controlled Hallucinations: Denies Suicidal Ideation: Denies Homicidal Ideation: Denies Insight/Judgement: Fair Sleep: Difficulty falling asleep Appetite: Fair Muscle strength/Tone: Mild Hypertonicity Gait/Station: Deferred Additional Comments: Continue current treatment plan Psychiatric Treatment Plan - Problem List (1) Alcohol dependence Current Visit: Yes (2) Alcohol withdrawal Current Visit: Yes Qualifiers: Complication of substance-induced condition: uncomplicated Qualified Code(s ): F10.230 - Alcohol dependence with withdrawal, uncomplicated (3) Cannabis dependence Current Visit: Yes (4) Nicotine dependence Current Visit: Yes Qualifiers: Nicotine product type: cigarettes Substance use status: in withdrawal Qualified Code(s): F17.213 - Nicotine dependence, cigarettes, with withdrawal (5) Opioid dependence with withdrawal Current Visit: Yes (6) Use of cane as ambulatory aid Current Visit: Yes Comment: right hip (7) Encounter for monitoring Suboxone maintenance therapy Current Visit: No (8) Substance-induced sleep disorder Current Visit: No (9) Depressive disorder Current Visit: No (10) MDD (major depressive disorder) Current Visit: No Initial treatment plan: Continue current treatment plan
[2018-05-04 14:40] VITALS: BP 146/67; PULSE 80; TEMP 97.7
--- NOTE | 2018-05-04 14:45 | PN ---
[facility] Progress Note Note: Psychiatric nurse practitioner note: Patient irritable and agitated. Stating he was having thoughts to hurt himself after being made aware that there is no suboxone outpatient care available at the moment. Pt. offered multiple rehab options but asking for a suboxone inpatient program. Pt. making statements, " I am going to kill myself. I do not want to live anymore. When i leave here i am going to end it." Pt. threatening to leave unit, stating, "no one can stop me from leaving." Pt. having difficulty following redirection. Pt. is not suitable to remain in a detox setting and is not safe to be discharged at this time. Pt. to be transferred to [facility] for further psychiatric treatment.
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
--- NOTE | 2018-05-04 15:20 | PN ---
[facility] Progress Note Note: patient has suicidal ideation ,seen by psychiatrist,911 called,patient to be transported to [facility] for evaluation and treatment of suicidal ideation
--- NOTE | 2018-05-04 15:51 | PN ---
[facility] Progress Note Note: Psychiatry Attending's note : Called to re-evaluate this patient. Issues : Increasingly agitated behavior and suicidal ideation. Case presented by rn compliance Ollie. Chart reviewed.Progress notes : appreciated. Patient is already known to health underwriter (seen on 04/30/18). Mr Jeffries is upset because of changes in his aftercare plans. No bed available on the rehabilitation unit at this time. Counselor is unable to locate a provider for suboxone. Discharge to jail : Remains the most viable option in current circumstances. As per staff, patient has made threats to end his life today. In response to these unforeseen handicaps to his disposition. Hotel Maintenance Worker approached the patient for a psychiatric interview. Mr Jeffries, angrily, refused to converse with MD.He warned : " Nobody can prevent me from leaving this place." Psychiatric evaluation cannot be conducted.Security called. Patient is unpredictable,defiant,hostile and potentially impulsive. Risk of dangerousness to self cannot be undermined. 911 activated.[employer] called for assistance. Patient is urgently transferred to the psychiatric emergency department At [facility] for psychiatric evaluation / disposition.
[2018-05-05] MEDS ORDERED: METHADONE HCL 5 MG TABLET (FOR DETOX USE ONLY) PO ONE (06:00)
[2018-05-05] MEDS ORDERED: METHADONE HCL 10 MG TABLET (FOR DETOX USE ONLY) PO SCH (06:00)
== END 2018-05-04 02:53 | DRG 773 ==
LOC: YASAS 19:29 → Y6N 22:13
PROVIDERS: ADMIT Surgery; ATTEND Surgery
PROC: HZ2ZZZZ Detoxification Services for Substance Abuse Treatment (ICD-10-PCS; principal; 2018-04-29)
DX: F11.23 Opioid dependence with withdrawal (principal); F10.230 Alcohol dependence with withdrawal, uncomplicated; F12.20 Cannabis dependence, uncomplicated; F17.213 Nicotine dependence, cigarettes, with withdrawal; F19.282 Other psychoactive substance dependence with psychoactive substance-induced sleep disorder; F33.9 Major depressive disorder, recurrent, unspecified; R45.851 Suicidal ideations; G47.00 Insomnia, unspecified; M54.5 Low back pain; M25.551 Pain in right hip; M15.0 Primary generalized (osteo)arthritis; H54.40 Blindness, one eye, unspecified eye; R76.11 Nonspecific reaction to tuberculin skin test without active tuberculosis; R26.2 Difficulty in walking, not elsewhere classified; Z99.89 Dependence on other enabling machines and devices
CPT/HCPCS: 36415; 80053; 81003; 85027; 86593; 93005; 93010

== ENCOUNTER 2023-01-29 12:31 | Inpatient (IN) | payer MEDICARE, OTHER ==
[2023-01-29 13:47] VITALS: BMI 28.0
[2023-01-29] MEDS ORDERED: ACETAMINOPHEN 325 MG TABLET (FP) PO PRN ×2 (14:10)
[2023-01-29] MEDS ORDERED: MAGNESIUM HYDROX 2400MG/30ML ORAL SUSPENSION 30 ML CUP PO PRN (14:10)
[2023-01-29] MEDS ORDERED: ONDANSETRON *ODT* 4 MG TABLET SL PRN (14:10)
[2023-01-29] MEDS ORDERED: NALOXONE HCL (KLOXXADO) 8 MG SPRAY NS PRN (14:10)
[2023-01-29] MEDS ORDERED: MAG HYDROX/AL HYDROX/SIMETH 30 ML UNIT-DOSE CUP PO PRN (14:10)
[2023-01-29] MEDS ORDERED: POLYETHYLENE GLYCOL (HEALTHYLAX) 3350 17 GM PACKET PO PRN (14:10)
[2023-01-29] MEDS ORDERED: BISMUTH SUBSALICYLATE 524 MG/30 ML PO PRN (14:10)
[2023-01-29] MEDS ORDERED: NALOXONE HCL 0.4 MG/ML VIAL IM PRN (14:10)
[2023-01-29] MEDS ORDERED: IBUPROFEN 400 MG TABLET (FP) PO PRN (14:10)
[2023-01-29] MEDS ORDERED: BENZOCAINE/MENTHOL (CHLORASEPTIC ) LOZENGE MM PRN (14:10)
[2023-01-29] MEDS ORDERED: DICYCLOMINE HCL 10 MG CAPSULE PO PRN (14:10)
[2023-01-29] MEDS ORDERED: LOPERAMIDE HCL 2 MG CAPSULE PO PRN (14:10)
[2023-01-29] MEDS ORDERED: methaDONE HCL 10 MG TABLET (FOR DETOX USE ONLY) PO ONE (14:12)
[2023-01-29] MEDS ORDERED: methaDONE HCL 10 MG TABLET (FOR DETOX USE ONLY) ONE (15:28)
[2023-01-29] MEDS: MELATONIN 5 MG TABLETS PO SCH (22:00)
[2023-01-29] MEDS: THIAMINE HCL 100 MG TABLET (FP) PO SCH (22:01)
[2023-01-29] MEDS: hydrOXYzine PAMOATE 25 MG CAPSULE (FP) PO PRN (22:01)
[2023-01-30] MEDS: NICOTINE 14 MG/24 HOURS TOPICAL PATCH TD SCH (10:13)
[2023-01-30] MEDS: PRENATAL VITAMINS W/ FOLIC ACID TABLET (FP) PO SCH (10:13)
[2023-01-30 11:28] LABS: HEMATOCRIT 34.8 % (35.4-49); HEMOGLOBIN 11.2 GM/dL (11.7-16.9); MCH 26.2 pg (25.7-33.7); MCHC 32.3 g/dl (32.0-35.9); MEAN CELL VOLUME 81.1 fl (80-96); PLATELET COUNT 278 10^3/uL (134-434); RBC 4.29 M/mm3 (4.00-5.60); RDW 16.9 % (11.9-15.9); WHITE BLOOD COUNT 7.3 K/mm3 (4.0-10.0)
[2023-01-30 11:35] LABS: CALCIUM 8.1 mg/dL (8.5-10.1)
[2023-01-30 11:36] LABS: BLOOD UREA NITROGEN 10.2 mg/dL (7-18)
[2023-01-30 11:39] LABS: CREATININE 0.9 mg/dL (0.55-1.3)
[2023-01-30 11:40] LABS: BILIRUBIN,TOTAL 0.6 mg/dL (0.2-1); TOT PROT 6.1 g/dl (6.4-8.2)
[2023-01-30] MEDS: hydrOXYzine PAMOATE 25 MG CAPSULE (FP) PO PRN (17:47)
[2023-01-30] MEDS: MELATONIN 5 MG TABLETS PO SCH (22:21)
[2023-01-30] MEDS: THIAMINE HCL 100 MG TABLET (FP) PO SCH (22:21)
[2023-01-31] MEDS ORDERED: methaDONE HCL 10 MG TABLET (FOR DETOX USE ONLY) PO ONE (10:00)
[2023-01-31] MEDS: PRENATAL VITAMINS W/ FOLIC ACID TABLET (FP) PO SCH (10:09)
[2023-01-31] MEDS: NICOTINE 14 MG/24 HOURS TOPICAL PATCH TD SCH (10:11)
[2023-01-31 21:44] LABS: PH,URINE 7.5 (5.0-8.0); URINE APPEARANCE CLEAR; URINE BILIRUBIN NEGATIVE (NEGATIVE); URINE COLOR YELLOW; URINE GLUCOSE (UA) NEGATIVE (NEGATIVE); URINE KETONE NEGATIVE (NEGATIVE); URINE LEUK ESTERASE NEGATIVE (NEGATIVE); URINE NITRITE NEGATIVE (NEGATIVE); URINE PROTEIN NEGATIVE (NEGATIVE)
[2023-01-31] MEDS: MELATONIN 5 MG TABLETS PO SCH (22:32)
[2023-01-31] MEDS: THIAMINE HCL 100 MG TABLET (FP) PO SCH (22:32)
[2023-02-01] MEDS: PRENATAL VITAMINS W/ FOLIC ACID TABLET (FP) PO SCH (10:07)
[2023-02-01] MEDS: IBUPROFEN 600 MG TABLET (FP) PO PRN ×2 (10:07→22:32)
[2023-02-01] MEDS: NICOTINE 14 MG/24 HOURS TOPICAL PATCH TD SCH (10:08)
[2023-02-01] MEDS: THIAMINE HCL 100 MG TABLET (FP) PO SCH (22:35)
[2023-02-01] MEDS: MELATONIN 5 MG TABLETS PO SCH (22:35)
[2023-02-02 06:10] VITALS: RESP 16
[2023-02-02 09:22] VITALS: BP 153/81; PULSE 62; TEMP 98.1
[2023-02-02] MEDS: NICOTINE 14 MG/24 HOURS TOPICAL PATCH TD SCH (09:31)
[2023-02-02] MEDS: PRENATAL VITAMINS W/ FOLIC ACID TABLET (FP) PO SCH (09:31)
[2023-02-02] MEDS ORDERED: methaDONE HCL 10 MG TABLET (FOR DETOX USE ONLY) PO ONE (10:00)
== END 2023-02-02 10:09 | disposition home or self-care (01) | DRG 897 ==
LOC: YASAS 12:31 → Y3N 14:20
PROVIDERS: ADMIT Allergy & Immunology; ATTEND Surgery
PROC: HZ2ZZZZ Detoxification Services for Substance Abuse Treatment (ICD-10-PCS; principal; 2023-01-29)
DX: F11.23 Opioid dependence with withdrawal (principal); F12.20 Cannabis dependence, uncomplicated; F17.210 Nicotine dependence, cigarettes, uncomplicated; F32.A Depression, unspecified; H54.62 Unqualified visual loss, left eye, normal vision right eye; M16.11 Unilateral primary osteoarthritis, right hip; M54.50 Low back pain, unspecified; G89.29 Other chronic pain; R76.11 Nonspecific reaction to tuberculin skin test without active tuberculosis; Z99.89 Dependence on other enabling machines and devices; Z28.310 Unvaccinated for COVID-19; Z28.9 Immunization not carried out for unspecified reason
CPT/HCPCS: 36415; 71046-TC-FY; 80053; 81003; 85027; 86780; 87811; 90853; 93005; 93010; C9803-CS; U0003; U0005

== ENCOUNTER 2023-02-10 13:46 | Inpatient (IN) | payer MEDICARE, OTHER ==
[2023-02-10 15:48] VITALS: BMI 29.2
[2023-02-10] MEDS ORDERED: IBUPROFEN 600 MG TABLET (FP) PO PRN (16:21)
[2023-02-10] MEDS ORDERED: NICOTINE 10 MG CARTRIDGE (INHALER) IH PRN (16:21)
[2023-02-10] MEDS ORDERED: IBUPROFEN 400 MG TABLET (FP) PO PRN (16:21)
[2023-02-10] MEDS ORDERED: NALOXONE HCL 0.4 MG/ML VIAL IM PRN (16:21)
[2023-02-10] MEDS ORDERED: hydrOXYzine PAMOATE 25 MG CAPSULE (FP) PO PRN (16:21)
[2023-02-10] MEDS ORDERED: guaiFENesin 600 MG TABLET.ER (FP) PO PRN (16:21)
[2023-02-10] MEDS ORDERED: BENZONATATE 200 MG CAPSULE PO PRN (16:21)
[2023-02-10] MEDS ORDERED: ACETAMINOPHEN 325 MG TABLET (FP) PO PRN (16:21)
[2023-02-10] MEDS ORDERED: LOPERAMIDE HCL 2 MG CAPSULE PO PRN (16:21)
[2023-02-10] MEDS ORDERED: NALOXONE HCL (KLOXXADO) 8 MG SPRAY NS PRN (16:21)
[2023-02-10] MEDS ORDERED: BENZOCAINE/MENTHOL (CHLORASEPTIC ) LOZENGE MM PRN (16:21)
[2023-02-10] MEDS ORDERED: POLYETHYLENE GLYCOL (HEALTHYLAX) 3350 17 GM PACKET PO PRN (16:21)
[2023-02-10] MEDS ORDERED: MAGNESIUM HYDROX 2400MG/30ML ORAL SUSPENSION 30 ML CUP PO PRN (16:21)
[2023-02-10] MEDS ORDERED: MAG HYDROX/AL HYDROX/SIMETH 30 ML UNIT-DOSE CUP PO PRN (16:21)
[2023-02-10] MEDS ORDERED: cloNIDine HCL 0.1 MG TABLET PO ONE (19:14)
[2023-02-10] MEDS: THIAMINE HCL 100 MG TABLET (FP) PO SCH (21:50)
[2023-02-10] MEDS ORDERED: MELATONIN 5 MG TABLETS PO SCH (22:00)
[2023-02-11] MEDS: PRENATAL VITAMINS W/ FOLIC ACID TABLET (FP) PO SCH (10:05)
[2023-02-11] MEDS ORDERED: METHOCARBAMOL 500 MG TABLET PO PRN (11:06)
[2023-02-11 11:52] LABS: HEMATOCRIT 33.9 % (35.4-49); HEMOGLOBIN 11.1 GM/dL (11.7-16.9); MCH 26.3 pg (25.7-33.7); MCHC 32.7 g/dl (32.0-35.9); MEAN CELL VOLUME 80.4 fl (80-96); MEAN PLT VOLUME 9.6 fl (7.5-11.1); PLATELET COUNT 271 10^3/uL (134-434); RBC 4.22 M/mm3 (4.00-5.60); RDW 16.2 % (11.9-15.9); WHITE BLOOD COUNT 6.6 K/mm3 (4.0-10.0)
[2023-02-11 11:59] LABS: CALCIUM 8.4 mg/dL (8.5-10.1)
[2023-02-11 12:00] LABS: BLOOD UREA NITROGEN 11.2 mg/dL (7-18)
[2023-02-11 12:03] LABS: CREATININE 0.9 mg/dL (0.55-1.3)
[2023-02-11 12:05] LABS: BILIRUBIN,TOTAL 0.4 mg/dL (0.2-1); TOT PROT 6.3 g/dl (6.4-8.2)
[2023-02-11] MEDS: BACLOFEN 10 MG TABLET (FP) PO PRN (12:25)
[2023-02-11] MEDS: THIAMINE HCL 100 MG TABLET (FP) PO SCH (21:29)
[2023-02-11] MEDS ORDERED: traZODone HCL 50 MG TABLET (FP) PO SCH (22:00)
[2023-02-12 06:41] VITALS: RESP 18; TEMP 98.1
[2023-02-12] MEDS: BACLOFEN 10 MG TABLET (FP) PO PRN (06:44)
[2023-02-12] MEDS: PRENATAL VITAMINS W/ FOLIC ACID TABLET (FP) PO SCH (09:41)
[2023-02-12 10:12] VITALS: BP 116/72; PULSE 60
== END 2023-02-12 11:48 | disposition left against medical advice (07) | DRG 894 ==
LOC: YASAS 13:46 → Y3E 17:59
PROVIDERS: ADMIT Allergy & Immunology; ATTEND Allergy & Immunology
PROC: HZ42ZZZ Group Counseling for Substance Abuse Treatment, Cognitive-Behavioral (ICD-10-PCS; principal; 2023-02-10)
DX: F11.20 Opioid dependence, uncomplicated (principal); F19.282 Other psychoactive substance dependence with psychoactive substance-induced sleep disorder; F17.210 Nicotine dependence, cigarettes, uncomplicated; F34.1 Dysthymic disorder; G47.00 Insomnia, unspecified; H54.62 Unqualified visual loss, left eye, normal vision right eye; M16.11 Unilateral primary osteoarthritis, right hip; M54.50 Low back pain, unspecified; G89.29 Other chronic pain; Z99.89 Dependence on other enabling machines and devices
CPT/HCPCS: 36415; 80053; 85027; 86780; 90853; C9803-CS; G0463; J0475; U0003; U0005

== ENCOUNTER 2023-02-17 13:48 | Inpatient (IN) | payer MEDICARE, OTHER ==
[2023-02-17 14:14] VITALS: BMI 28.0
[2023-02-17] MEDS ORDERED: NICOTINE 10 MG CARTRIDGE (INHALER) IH PRN (21:15)
[2023-02-17] MEDS ORDERED: MAGNESIUM HYDROX 2400MG/30ML ORAL SUSPENSION 30 ML CUP PO PRN (21:15)
[2023-02-17] MEDS ORDERED: POLYETHYLENE GLYCOL (HEALTHYLAX) 3350 17 GM PACKET PO PRN (21:15)
[2023-02-17] MEDS ORDERED: IBUPROFEN 400 MG TABLET (FP) PO PRN (21:15)
[2023-02-17] MEDS ORDERED: IBUPROFEN 600 MG TABLET (FP) PO PRN (21:15)
[2023-02-17] MEDS ORDERED: BENZONATATE 200 MG CAPSULE PO PRN (21:15)
[2023-02-17] MEDS ORDERED: BENZOCAINE/MENTHOL (CHLORASEPTIC ) LOZENGE MM PRN (21:15)
[2023-02-17] MEDS ORDERED: ACETAMINOPHEN 325 MG TABLET (FP) PO PRN (21:15)
[2023-02-17] MEDS ORDERED: P-EPHED 60MG/TRIPROLIDI 2.5MG TABLET PO PRN (21:15)
[2023-02-17] MEDS ORDERED: LOPERAMIDE HCL 2 MG CAPSULE PO PRN (21:15)
[2023-02-17] MEDS ORDERED: NICOTINE POLACRILEX 2 MG GUM BUC PRN (21:15)
[2023-02-17] MEDS ORDERED: MAG HYDROX/AL HYDROX/SIMETH 30 ML UNIT-DOSE CUP PO PRN (21:15)
[2023-02-17] MEDS ORDERED: guaiFENesin 600 MG TABLET.ER (FP) PO PRN (21:15)
[2023-02-17] MEDS: MELATONIN 5 MG TABLETS PO PRN (21:53)
[2023-02-17] MEDS: THIAMINE HCL 100 MG TABLET (FP) PO SCH (21:53)
[2023-02-18] MEDS: PRENATAL VITAMINS W/ FOLIC ACID TABLET (FP) PO SCH (10:30)
[2023-02-18] MEDS ORDERED: NALOXONE (NARCAN) HCL 4 MG/0.1 ML SPRAY NS SCH (11:00)
[2023-02-18] MEDS ORDERED: NALOXONE HCL (KLOXXADO) 8 MG SPRAY NS PRN (12:47)
[2023-02-18] MEDS: BACLOFEN 10 MG TABLET (FP) PO PRN ×2 (13:07→21:29)
[2023-02-18] MEDS ORDERED: METHOCARBAMOL 500 MG TABLET PO SCH (14:00)
[2023-02-18] MEDS: THIAMINE HCL 100 MG TABLET (FP) PO SCH (21:29)
[2023-02-18] MEDS: MELATONIN 5 MG TABLETS PO PRN (21:29)
[2023-02-19] MEDS: BACLOFEN 10 MG TABLET (FP) PO PRN ×2 (06:07→13:14)
[2023-02-19] MEDS: PRENATAL VITAMINS W/ FOLIC ACID TABLET (FP) PO SCH (09:35)
[2023-02-19] MEDS ORDERED: cloNIDine HCL 0.1 MG TABLET PO PRN (09:36)
[2023-02-19 17:02] VITALS: BP 154/83; PULSE 77; RESP 20; TEMP 96.5
== END 2023-02-19 17:38 | disposition left against medical advice (07) | DRG 894 ==
LOC: YASAS 13:48 → Y3W 21:02
PROVIDERS: ADMIT Allergy & Immunology; ATTEND Psychiatry & Neurology Pain Medicine
PROC: HZ42ZZZ Group Counseling for Substance Abuse Treatment, Cognitive-Behavioral (ICD-10-PCS; principal; 2023-02-17)
DX: F11.20 Opioid dependence, uncomplicated (principal); F12.20 Cannabis dependence, uncomplicated; F17.210 Nicotine dependence, cigarettes, uncomplicated; F32.A Depression, unspecified; G47.00 Insomnia, unspecified; M16.11 Unilateral primary osteoarthritis, right hip; Z99.89 Dependence on other enabling machines and devices
CPT/HCPCS: 87811; 90853; C9803-CS; J0475; U0003; U0005